=== PATIENT | male | born 1955 | race Caucasian/White ===

== ENCOUNTER 2022-03-13 14:28 | Outpatient (CLI) | payer MEDICARE, OTHER, SELFPAY ==
[2022-03-13 15:56] LABS: Basophils Percent Auto 0.6 % (0.2-1.2); Eosinophils Absolute Auto 0.1 K/mm3 (0-0.3); Eosinophils Percent Auto 1.8 % (0-4.4); Hematocrit 52.6 % (42.0-52.0); Hemoglobin 18.4 g/dL (14.0-18.0); Immature Granulocyte Absolute 0.02 K/mm3 (0.00-0.031); Immature Granulocyte Percent A 0.3 % (0-0.5); Lymphocytes Absolute Auto 1.48 K/mm3 (0.9-3.2); Lymphocytes Percent Auto 22.5 % (18.3-44.2); Mean Corpuscular Hemoglobin 32.6 pg (26-34); Mean Corpuscular Volume 93.1 fl (80-100); Mean Platelet Volume 9.9 fl (7.4-10.4); Monocytes Absolute Auto 0.5 K/mm3 (0.1-0.6); Monocytes Percent Auto 8.2 % (2.6-8.5); Neutrophils Absolute Auto 4.4 K/mm3 (1.3-6.7); Neutrophils Percent Auto 66.6 % (45.5-73.1); Platelet Count Result 220 k/mm3 (150-375); Red Blood Count 5.65 M/mm3 (4.6-6.20); Red Cell Distribution Width 13.1 % (11.5-14.5); White Blood Count 6.6 K/mm3 (4.5-10.0)
[2022-03-13 16:02] LABS: Alanine Aminotransferase 34 U/L (6-50); Albumin Level 4.6 g/dL (3.5-5.1); Alkaline Phosphatase 62 U/L (38-126); Anion Gap 7 mmol/L (8-16); Aspartate Amino Transferase 38 U/L (17-59); Blood Urea Nitrogen 26 mg/dL (9-20); Carbon Dioxide 30 mmol/L (22-30); Chloride 100 mmol/L (98-107); Estimated Glomerular Filt Rate 47; Glucose 93 mg/dL (65-110); Potassium 4.2 mmol/L (3.4-5.0); Sodium 137 mmol/L (137-145)
[2022-03-16 13:36] LABS: Erythropoietin (EPO) 15.8 mIU/mL (2.6-18.5)
[2022-03-19 15:37] LABS: CALR Exon 9 Mutation Not Detected (Not Detected); CSF3R Exon 14/17 Mutation Not Detected (Not Detected); Clinical Indication Not Given; JAK2 Exon 12 Mutation Not Detected (Not Detected); JAK2 V617F Mutation Not Detected (Not Detected); MPL Exon 10 Mutation Not Detected (Not Detected); Specimen Source Blood
== END 2022-03-13 14:29 | disposition home or self-care (01) ==
PROVIDERS: PCP Internal Medicine; Visit Provider Internal Medicine Hematology & Oncology
DX: D75.1 Secondary polycythemia (principal)
CPT/HCPCS: 36415; 80053; 81219; 81270; 81279; 81339; 81479; 82668; 85025

== ENCOUNTER 2022-12-10 14:43 | Outpatient (CLI) | payer MEDICARE, OTHER, SELFPAY ==
[2022-12-10 15:14] LABS: Basophils Percent Auto 0.6 % (0.2-1.2); Eosinophils Absolute Auto 0.1 K/mm3 (0-0.3); Eosinophils Percent Auto 1.9 % (0-4.4); Hematocrit 52.7 % (42.0-52.0); Hemoglobin 17.2 g/dL (14.0-18.0); Immature Granulocyte Absolute 0.01 K/mm3 (0.00-0.031); Immature Granulocyte Percent A 0.2 % (0-0.5); Lymphocytes Absolute Auto 1.04 K/mm3 (0.9-3.2); Lymphocytes Percent Auto 22.1 % (18.3-44.2); Mean Corpuscular HGB Conc 32.6 g/dl (32-36); Mean Corpuscular Hemoglobin 28.7 pg (26-34); Monocytes Absolute Auto 0.5 K/mm3 (0.1-0.6); Monocytes Percent Auto 11.3 % (2.6-8.5); Neutrophils Percent Auto 63.9 % (45.5-73.1); Platelet Count Result 157 k/mm3 (150-375); Red Blood Count 5.99 M/mm3 (4.6-6.20); Red Cell Distribution Width 14.6 % (11.5-14.5); White Blood Count 4.7 K/mm3 (4.5-10.0)
[2022-12-10 15:23] LABS: Alanine Aminotransferase 26 U/L (6-50); Albumin Level 4.3 g/dL (3.5-5.1); Alkaline Phosphatase 56 U/L (38-126); Anion Gap 8 mmol/L (8-16); Aspartate Amino Transferase 34 U/L (17-59); Bilirubin,Total 1.1 mg/dL (0.2-1.3); Blood Urea Nitrogen 17 mg/dL (9-20); Calcium 8.8 mg/dL (8.4-10.2); Carbon Dioxide 29 mmol/L (22-30); Chloride 101 mmol/L (98-107); Estimated Glomerular Filt Rate 60; Glucose 82 mg/dL (65-110); Potassium 4.2 mmol/L (3.4-5.0); Sodium 138 mmol/L (137-145)
[2022-12-10 16:35] LABS: Folic Acid > 20.0 ng/mL (2.76->20)
[2022-12-10 16:43] LABS: Free T4 Free Thyroxine 1.38 ng/mL (0.78-2.19)
[2022-12-13 13:13] LABS: Vitamin B6 23.1 ng/mL (2.1-21.7)
[2022-12-14 06:25] LABS: Vitamin B1 24 nmol/L (8-30)
== END 2022-12-10 14:44 | disposition home or self-care (01) ==
PROVIDERS: PCP Internal Medicine; Visit Provider Internal Medicine
DX: R45.86 Emotional lability (principal); Z79.899 Other long term (current) drug therapy; E55.9 Vitamin D deficiency, unspecified
CPT/HCPCS: 36415; 80053; 82306; 82607; 82746; 84207; 84252; 84425; 84439; 84443; 85025

== ENCOUNTER 2022-12-13 07:30 | Outpatient (CLI) | payer MEDICARE, OTHER, SELFPAY ==
--- NOTE | ~2022-12-13 | CT_ITS ---
EXAMINATION: CT brain wo/w con DATE: 12/13/2022 08:15 INDICATION: Emotional lability. TECHNIQUE: Computed tomography (CT) of the head was performed without and with 100 mL Omnipaque 350 i ntravenous contrast. The mA was adjusted according to patient size. Iterative reconstruction techniqu e was employed. The dose-length product was 1210.67 mGy-cm. COMPARISON: Head CT 07/23/2018 FINDINGS: There is no intracranial hemorrhage, acute infarction, or abnormal intracranial mass lesion . There are scattered areas of low attenuation in the cerebral white matter, which is within normal l imits for the patient's age. The ventricles are normal in size. There is mucosal thickening in the pa ranasal sinuses. The orbits are normal. The mastoid air cells are normal. IMPRESSION: 1. Normal aging brain. Reviewed, dictated and finalized at location A. IMPRESSION: 1. Normal aging brain.
[2022-12-13 08:06] LABS: Estimated Glomerular Filt Rate 43
== END 2022-12-13 07:31 | disposition home or self-care (01) ==
PROVIDERS: PCP Internal Medicine; Visit Provider Internal Medicine
DX: R45.86 Emotional lability (principal); F09 Unspecified mental disorder due to known physiological condition
CPT/HCPCS: 70470; Q9967

== ENCOUNTER 2023-08-19 11:19 | Outpatient (CLI) | payer MEDICARE, OTHER, SELFPAY ==
[2023-08-19 11:31] LABS: Hematocrit 45.3 % (42.0-52.0); Hemoglobin 16.1 g/dL (14.0-18.0); Mean Corpuscular HGB Conc 35.5 g/dl (32-36); Mean Corpuscular Hemoglobin 31.8 pg (26-34); Mean Corpuscular Volume 89.3 fl (80-100); Mean Platelet Volume 9.1 fl (7.4-10.4); Platelet Count Result 176 k/mm3 (150-375); Red Blood Count 5.07 M/mm3 (4.6-6.20); Red Cell Distribution Width 13.2 % (11.5-14.5)
[2023-08-19 11:37] LABS: Blood Urea Nitrogen 15 mg/dL (8-26); Carbon Dioxide 23 mmol/L (22-30); Chloride 101 mmol/L (98-109); Estimated Glomerular Filt Rate 55; Glucose 123 mg/dL (70-105); Ionized Calcium (POC) 1.15 mmol/L (1.11-1.31); Potassium 4.3 mmol/L (3.5-4.9); Sodium 134 mmol/L (138-146)
== END 2023-08-19 11:20 | disposition home or self-care (01) ==
LOC: ANHLAB 11:21
PROVIDERS: Visit Provider Internal Medicine Hematology & Oncology
DX: D75.1 Secondary polycythemia (principal)
CPT/HCPCS: 36415; 80047; 85027

== ENCOUNTER 2024-02-14 10:49 | Outpatient (CLI) | payer MEDICARE, OTHER, SELFPAY ==
[2024-02-14 11:07] LABS: Basophils Percent Auto 0.5 % (0.2-1.2); Eosinophils Absolute Auto 0.2 K/mm3 (0-0.3); Eosinophils Percent Auto 4.6 % (0-4.4); Hemoglobin 14.8 g/dL (14.0-18.0); Immature Granulocyte Absolute 0.01 K/mm3 (0.00-0.031); Immature Granulocyte Percent A 0.3 % (0-0.5); Lymphocytes Absolute Auto 1.13 K/mm3 (0.9-3.2); Lymphocytes Percent Auto 28.8 % (18.3-44.2); Mean Corpuscular HGB Conc 30.2 g/dl (32-36); Mean Corpuscular Hemoglobin 23.3 pg (26-34); Mean Corpuscular Volume 77.3 fl (80-100); Monocytes Absolute Auto 0.5 K/mm3 (0.1-0.6); Monocytes Percent Auto 13.2 % (2.6-8.5); Neutrophils Absolute Auto 2.1 K/mm3 (1.3-6.7); Neutrophils Percent Auto 52.6 % (45.5-73.1); Platelet Count Result 159 k/mm3 (150-375); Red Blood Count 6.34 M/mm3 (4.6-6.20); Red Cell Distribution Width 17.5 % (11.5-14.5); White Blood Count 3.9 K/mm3 (4.5-10.0)
[2024-02-14 11:14] LABS: Blood Urea Nitrogen 19 mg/dL (8-26); Carbon Dioxide 28 mmol/L (22-30); Chloride 101 mmol/L (98-109); Estimated Glomerular Filt Rate 50; Glucose 84 mg/dL (70-105); Ionized Calcium (POC) 1.19 mmol/L (1.11-1.31); Potassium 4.6 mmol/L (3.5-4.9); Sodium 137 mmol/L (138-146)
== END 2024-02-14 10:50 | disposition home or self-care (01) ==
LOC: ANHLAB 10:50
PROVIDERS: Visit Provider Internal Medicine Hematology & Oncology
DX: D75.1 Secondary polycythemia (principal)
CPT/HCPCS: 36415; 80047; 85025

== ENCOUNTER 2024-08-20 13:34 | Outpatient (CLI) | payer MEDICARE, OTHER, SELFPAY ==
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
--- OUTSIDE RECORDS SUMMARY | 2024-08-20 13:37 | XMS_ITS | Clinical Summary ---
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 Active metoprolol tartrate (LOPRESSOR) 50 mg tablet Take 50 mg by mouth 2 times daily. 2 Active omeprazole (PriLOSEC) 20 mg Capsule, Delayed Release(E.C.) Take 20 mg by mouth 1 time daily as needed for Nausea. 0 Active rosuvastatin (CRESTOR) 10 mg tablet Take 5 mg by mouth daily. 2 Active niacin (NIACOR) 250 mg tablet Take 1 Tablet by mouth. Active Multivitamin Capsule Take 1 Capsule by mouth daily. Active rivaroxaban (Xarelto) 20 mg Tablet Take 20 mg by mouth daily with supper. Active tadalafil (CIALIS) 2.5 mg tablet Take 5 mg by mouth daily. 4 Active testosterone enanthate 100 mg/0.5 mL Auto-Injector Inject 100 mg by subcutaneous injection every 7 days. Active doxylamine (UNISOM) 25 mg Tablet Take 25 mg by mouth nightly as needed for Insomnia. Active Active Problems No known active problems Family History Medical History Relation Name Comments No Known Problems Daughter Heart Disease Father Stomach Cancer Father No Known Problems Mother No Known Problems Son Relation Name Status Comments Brother 3 sisters Daughter Alive Father Mother Sister 4 sisters Son Alive Social History Tobacco Use Types Packs/Day Years Used Date Smoking Tobacco: Never Smokeless Tobacco: Never Tobacco Cessation:Counseling Given: Not Answered Alcohol Use Standard Drinks/Week Comments Yes 0 (1 standard drink = 0.6 oz pur e alcohol) Sex and Gender Information Value Date Recorded Sex Assigned at Not on file Legal Sex Male 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 Gender Identity Not on file Sexual Orientation Not on file Last Filed Vital Signs Vital Sign Reading Time Taken Comments Blood Pressure 124/80 02/14/2024 11:22 AM CONSTRUCTION SAFETY CONSULTANT Pulse 53 02/14/2024 11:22 AM CONSTRUCTION SAFETY CONSULTANT Temperature 36.7 C (98 F) 02/14/2024 11:22 AM CONSTRUCTION SAFETY CONSULTANT Respiratory Rate 16 02/14/2024 11:2 2 AM CONSTRUCTION SAFETY CONSULTANT Oxygen Saturation 97% 02/14/2024 11: 22 AM CONSTRUCTION SAFETY CONSULTANT Inhaled Oxygen Concentration - - Weight 102.6 kg (226 lb 3.2 oz) 024 11:22 AM CONSTRUCTION SAFETY CONSULTANT Height 185.4 cm (6' 1 ) 03/13/2022 1:32 PM CONSTRUCTION SAFETY CONSULTANT Body Mass Index 29.84 03/13/2022 1:32 PM CONSTRUCTION SAFETY CONSULTANT Plan of Treatment Upcoming Encounters Date Type Department Care Team (Late st Contact Info) Description 08/20/2024 2:00 PM CDT Office Visit [facility] - [place] [address] [facility] [address] [place] [address] Josh Fierro MD [address] [facility] [address] [place] [address] Health Maintenance Due Date Last Done Comments Pre-Diabetes and Diabetes Screening 1955 COLORECTAL SCREENING 2000 Colorectal Cancer Screening 2000 FIT-DNA Q 3 years 2000 FIT/FOBT Q 1 year 2000 Flex Sig/CT Colonography Q 5 years 2000 INFLUENZA VACCINE (#1) 2023 01/08/2023, 2016 RSV VACCINE (60+ or ) (1 - 1-dose 75+ series) 2030 DTAP/TDAP/TD VACCINES (2 - Td or Tdap) 04/03/2032 ZOSTER VACCINE Completed 09/21/2019, 03/02/2019 PNEUMOCOCCAL VACCINE 50+ YEARS Completed 04/18/2021 , 04/10/2020 Insurance MEDICARE PART A AND B [facility] OF [facility] MEDICARE PART A AND B [facility] OF [facility] [place] [address]
--- OUTSIDE RECORDS SUMMARY | 2024-08-20 13:37 | XMS_ITS | Clinical Summary ---
Author Organization [facility] [address] Address [address] [place] [address] Care Team Providers Care Gold Assayer Name Role Phone Marlen Eddy MD Primary Care Provider [phone] Allergies No known active allergies Medications omeprazole (PriLOSEC) 20 mg capsule Take 1 capsule (20 mg total) by mouth daily Active multivitamin capsule Take 1 capsule by mouth daily Active rosuvastatin (CRESTOR) 5 mg tablet Take 1 tablet (5 mg total) by mouth daily 3 Active Xarelto 20 mg tablet TAKE 1 TABLET BY MOUTH EVERY DAY WITH SUPPER TAKE WITH FOOD Active metoprolol tartrate (LOPRESSOR) 25 mg immediate release tablet Take 1 tablet (25 mg total) by mouth 2 (two) times a day Patient states take every 12 hours Active sildenafiL (VIAGRA) 100 mg tablet Take 1 tablet (100 mg total) by mouth daily as needed for erectile dysfunction Patient states he take 100 mg as needed Active testosterone cypionate (DEPO-TESTOTER ONE) 100 mg/mL injection Inject 1 mL (100 mg total) into the muscle as instructed once a week Active cyanocobalamin (Vitamin B-12) 1,000 mcg tablet Take 1 tablet (1,000 mcg total) by mouth daily Active doxylamine (UNISOM) 25 mg tablet Take 1 tablet (25 mg total) by mouth nightly as needed Active needle, disp, 18 G (Monoject Hypodermic Polypropyl) 18 gauge x 1 needle 1 (one) needle, disposable as directed weekly for 0 days 4 Active syringe with needle (TrackDuck Luer Lock Syr-needle) 3 mL 23 x 1 syringe 1 Syringe 4 Active tadalafiL (CIALIS) 5 mg tablet Take 1 tablet (5 mg total) by mouth as needed Active testosterone 20.25 mg/1.25 gram (1.62 %) gel in metered-dose pump 3 08/15/19 25 Discontin ued(Thera py completed ) niacin 250 mg tablet Take 1 tablet (250 mg total) by mouth 08/15/19 25 Discontin ued(Thera py completed ) sildenafiL (VIAGRA) 100 mg tablet Take 0.5 tablets (50 mg total) by mouth as needed 2 08/15/19 25 Discontin ued(Thera py completed ) metoprolol tartrate (LOPRESSOR) 50 mg immediate release tablet Take 1 tablet (50 mg total) by mouth 2 (two) times a day 08/15/19 25 Discontin ued(Thera py completed ) Active Problems Problem Noted Date Diagnosed Date Irritability and anger 08/14/2024 Memory loss or impairment 08/14/2024 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 No evidence of ischemic heart disease. Continue beta-mikey. Of note, he was concerned about bradycardia and wanted to reduce the dose of metoprolol. I have agreed to do so as long as he does not have more atrial or ventricular arrhythmias on his next device check. SSS (sick sinus syndrome) 04/30/2017 Assessment & Plan (07/01/2017 1:59 PM CDT): His pacemaker is functioning normally and he has not had any episodes of syncope. Overall he is feeling much better than before PPM placement. He did have a few episodes of dizziness, and I have asked him to note if this happens again. One may correspond to an episode of atrial fibrillation that occurred, so we will continue to monitor this. Presence of cardiac pacemaker 03/26/2017 Overview (09/09/2019): [employer] DDD Essentio L111 pacemaker implanted on 03/19/17 for SSS. [facility] - Latitude remote monitoring. 09/09/2019-patient transferred to [facility] Assessment & Plan (07/01/2017 2:02 PM CDT): Normal device function. Latitude in 3 months. Headache 12/22/2013 Overview (07/05/2016): Headache Syncope 12/22/2013 Overview (07/05/2016): Syncope Resolved Problems Problem Noted Date Diagnosed Date Resolved Date Paroxysmal atrial fibrillation 07/01/2017 07/08/2018 Overview (07/01/2017): Noted on device interrogation, three episodes <1 minute each. This is not clinically significant. Continue to monitor via device and consider treatment if burden is increased or symptoms are problematic. Currently [id number]=0. Continue beta- mikey. Status post placement of imp lantable loop recorder 03/04/2017 03/26/2017 Overview (03/04/2017): [employer] Reveal Loop Recorder Dx; Syncope. DOI 03/01/[address] Benavides. [facility]link remote home monitoring. Encounters Date Type Department Care Team Description 08/14/2024 1:00 PM CDT Office Visit [facility] [address] [facility] 6th [place] [address] [place] [address] Maureen Miranda MD PhD Memory loss or impairment (Primary Dx); Irritability and anger from Last 3 Months Immunizations Immunization Administration Dates Next Due Influenza, Quadrivalent, Spl it, Preservative Free, Intramuscular 03/20/2017 Surgical History Surgery Date Site/Laterality Comments INSERT / REPLACE / REMOVE PACEMAKER Medical History Medical History Date Comments Hx Other Medical GERD, migraines , vasectomy; Comments: [facility] 09/01/2013 - Hx Other Medical heart attack; C omments: [facility] 09/10/2013 - Hx Other Medical cardiac cath; C omments: [facility] 09/10/2013 - Hx Other Medical not claustropho bic; Comments: [facility] 10/12/2013 - Syncope Sick sinus syndrome (HCC) Family History Medical History Relation Name Comments Coronary artery disease Father Ángel nary artery disease; Heart disease Father Heart disease; Other Father Alzheimer's disease Mother Alzheime r's disease; Dementia Mother Relation Name Status Comments Father (Age 87) abdominal cancer Mother (Age 89) Social History Tobacco Use Types Packs/Day Years Used Date Smoking Tobacco: Never Smokeless Tobacco: Never Tobacco Cessation:Counseling Given: No Alcohol Use Standard Drinks/Week Comments Yes 2 (1 standard drink = 0.6 oz pur e alcohol) Sex and Gender Information Value Date Recorded Sex Assigned at Not on file 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 Gender Identity Not on file Sexual Orientation Not on file Obstetrics History Last Filed Vital Signs Vital Sign Reading Time Taken Comments Blood Pressure 144/93 08/14/2024 12:35 PM CDT Pulse 53 08/14/2024 12:35 PM CDT Temperature - - Respiratory Rate - - Oxygen Saturation 94% 12/12/2023 9:20 AM CDT Inhaled Oxygen Concentration - - Weight 103 kg (227 lb) 08/14/2024 12:35 PM CDT Height 185.4 cm (6' 1 ) 08/14/2024 12:35 PM CDT Body Mass Index 29.95 08/14/2024 12:35 PM CDT Plan of Treatment Health Maintenance Due Date Last Done Comments Colon Cancer Screening-Colonoscopy 1955 Depression Screening 1955 Fall Risk Assessment 1955 Hepatitis C Screening 1955 Prostate Cancer Screening-PSA 1955 Hepatitis B Screening 1973 Well Visit 65+ 2020 Covid-19 Vaccine (2 - 2023-2 5 season) 2023 11/27/2020 DTaP/Tdap/Td Vaccine (2 - Td or Tdap) 04/03/2032 04/03/2022, 07/14/2018 Zoster Vaccine Completed 09/21/2019, 03/02/2019 Pneumococcal vaccine 65+ Completed 04/18/2021, 04/01 Influenza Vaccine Completed 01/20/2024, , 02/01/2021, Additional history exists Medical Devices Implanted Type Area Airplane Electrician Device Identifier Shelf Expiration Date Model / Serial / Lot Pacemaker- Implanted: by Yoana Bradley MD (Quantity not on file) Pacemaker Chest [employer] SSS ESSENTIO [id number] / [id number] / Insurance MEDICARE [employer] [facility] MEDICARE 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
--- OUTSIDE RECORDS SUMMARY | 2024-08-20 13:37 | XMS_ITS | Referral Summary ---
Author Organization [facility] [address] Address [address] [place] [address] Care Team Providers Care Tile Molder Name Role Phone Marlen Eddy MD Primary Care Provider [phone] Encounters Date Type Department Care Team Description 08/14/2024 1:00 PM CDT Office Visit [facility] [address] [facility] 6th [place] [address] [place] [id number] Maureen Miranda MD PhD Memory loss or impairment (Primary Dx); Irritability and anger from Last 3 Months Allergies No known active allergies Medications omeprazole [...] 0 days 4 Active syringe with needle (Posto7 Luer Lock Syr-needle) 3 mL 23 x [...] Presence of cardiac pacemaker 03/26/2017 Overview (09/09/2019): [employer] DDD Essentio L111 pacemaker implanted on 03/19/17 for SSS. [facility] - Latitude remote monitoring. 09/09/2019-patient transferred to [facility] Assessment & Plan (07/01/2017 2:02 [...] is increased or symptoms are problematic. Currently [id number]=0. Continue beta- mikey. Status post placement of imp lantable loop recorder 03/04/2017 03/26/2017 Overview (03/04/2017): [employer] Reveal Loop Recorder Dx; Syncope. DOI 03/01/[address] Benavides. [facility] remote home monitoring. 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 Gender Identity Not on file Sexual Orientation [...] 08/14/2024 12:35 PM CDT Plan of Treatment Not on file Medical Devices Implanted Type Area High Reach Operator Device Identifier Shelf Expiration Date Model / Serial / Lot Pacemaker- Implanted: by Yoana Bradley MD (Quantity not on file) Pacemaker Chest [employer] SSS ESSENTIO [id number] / [id number] / Insurance [facility]ICARE [facility]ICARE [facility] Advance Directives For more information, please contact: [phone] Documents on File Type Date Recorded Patient Unarmed Security Officer Expl anation ADVANCE DIRECTIVE 03/19/2017 Advance Di rective Checklist Care Teams Tile Molder Relationship Specialty Start Date End Date Marlen Eddy MD [address] [place] [address] PCP - General Family Medicine 08/22/23
[2024-08-20 13:48] LABS: Basophils Percent Auto 0.4 % (0.2-1.2); Eosinophils Absolute Auto 0.1 K/mm3 (0-0.3); Eosinophils Percent Auto 2.4 % (0-4.4); Hematocrit 48.6 % (42.0-52.0); Hemoglobin 15.3 g/dL (14.0-18.0); Immature Granulocyte Absolute 0.02 K/mm3 (0.00-0.031); Immature Granulocyte Percent A 0.4 % (0-0.5); Lymphocytes Absolute Auto 1.02 K/mm3 (0.9-3.2); Lymphocytes Percent Auto 20.8 % (18.3-44.2); Mean Corpuscular HGB Conc 31.5 g/dl (32-36); Mean Corpuscular Hemoglobin 25.4 pg (26-34); Mean Corpuscular Volume 80.7 fl (80-100); Mean Platelet Volume 9.5 fl (7.4-10.4); Monocytes Absolute Auto 0.4 K/mm3 (0.1-0.6); Monocytes Percent Auto 8.8 % (2.6-8.5); Neutrophils Absolute Auto 3.3 K/mm3 (1.3-6.7); Neutrophils Percent Auto 67.2 % (45.5-73.1); Platelet Count Result 200 k/mm3 (150-375); Red Blood Count 6.02 M/mm3 (4.6-6.20); White Blood Count 4.9 K/mm3 (4.5-10.0)
[2024-08-20 13:51] LABS: Blood Urea Nitrogen 13 mg/dL (8-26); Carbon Dioxide 25 mmol/L (22-30); Chloride 100 mmol/L (98-109); Estimated Glomerular Filt Rate 46; Glucose 111 mg/dL (70-105); Ionized Calcium (POC) 1.18 mmol/L (1.11-1.31); Potassium 4.3 mmol/L (3.5-4.9); Sodium 138 mmol/L (138-146)
[2024-08-20 16:42] LABS: Alanine Aminotransferase 26 U/L (6-50); Albumin Level 4.1 g/dL (3.5-5.1); Alkaline Phosphatase 64 U/L (38-126); Anion Gap 7 mmol/L (4-12); Aspartate Amino Transferase 47 U/L (17-59); Bilirubin,Total 0.9 mg/dL (0.2-1.3); Blood Urea Nitrogen 14 mg/dL (9-20); Calcium 8.9 mg/dL (8.4-10.2); Carbon Dioxide 26 mmol/L (22-30); Chloride 103 mmol/L (98-107); Estimated Glomerular Filt Rate 51; Glucose 110 mg/dL (65-110); Potassium 4.4 mmol/L (3.4-5.0); Sodium 136 mmol/L (137-145)
== END 2024-08-20 13:35 | disposition home or self-care (01) ==
PROVIDERS: Visit Provider Internal Medicine Hematology & Oncology
DX: D75.1 Secondary polycythemia (principal)
CPT/HCPCS: 36415; 80047; 80053; 85025

== ENCOUNTER 2024-09-23 15:15 | Emergency (ER) | payer MEDICARE, OTHER, SELFPAY ==
--- NOTE | ~2024-09-23 | XR_ITS ---
EXAMINATION: XR hand LT min 3V DATE: 09/23/2024 16:01 INDICATION: Right hand pain and swelling post fall one month prior TECHNIQUE: Posteroanterior, oblique and lateral views of the right hand were obtained. COMPARISON: None. FINDINGS: Alignment is normal. No fracture. Mild polyarticular osteoarthritis at the distal interphalangeal philly nts. Soft tissues are unremarkable. IMPRESSION: 1. 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 No acute osseous abnormali ty. Reviewed, dictated and finalized at location A. IMPRESSION: 1. 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 No a cute osseous abnormality.
[2024-09-23 15:35] VITALS: BP 115/79; PULSE 60; RESP 16; TEMP 36.7; O2SAT 100
--- NOTE | 2024-09-23 16:40 | ED_ITS ---
HPI - Extremity Injury (Upper) General Chief Complaint: Extremity Injury, Upper Stated Complaint: Left Hand Injury Time Seen by Provider: 09/23/24 16:20 Source: patient and RN notes reviewed Mode of arrival: ambulatory Limitations: no limitations History of Present Illness HPI narrative: 69-year-old male presents Express Care complaining of left and injury x1 month. Proximal month ago patient was cleaning barnacles off a boat when he lost his footing and fell on the rocks and landed on his left hand. Denies hitting his head, loss of consciousness, neck pain, back pain, any other injuries. Since then patient persistently having pain near the MCP joints of his hand and swelling. Patient said the swelling has significantly improved over the last month and is no longer bruised. Patient denies any significant past medical history. Patient has been doing Tylenol periodically without relief. Patient denies any numbness or tingling. Patient cannot take NSAIDs because he is on a blood thinner for atrial fibrillation history. Related Data Home Medications ?Medication ?Instructions ?Recorded ?Confirmed ?Last Taken ?Type multivitamin 1 tablet PO DAILY 03/17/19 02/12/23 Unknown History mecobalamin (vitamin B12) 1,000 1,000 mcg sublingual DAILY 08/17/19 02/12/23 Unknown History mcg disintegrating tablet,sublingual niacin 500 mg tablet,extended 500 mg PO QAM 08/17/19 02/12/23 Unknown History release omega 9-grv-paz-fish oil 1,200 mg See Rx Instructions PO .COMPLEX 03/29/20 02/12/23 Unknown History (144 mg-216 mg) capsule (Fish Oil) rivaroxaban 20 mg tablet (Xarelto) 20 mg PO DAILY 11/06/22 02/12/23 Unknown History testosterone cypionate 200 mg/mL mg 09/23/24 Unknown History intramuscular oil Allergies Allergy/AdvReac Type Severity Reaction Status Date / Time No Known Allergies Allergy Verified 09/23/24 15:35 Review of Systems Review of Systems: CONSTITUTIONAL: Denies fever, chills, or sweats. EYES: Denies visual changes, redness, or discharge. ENT: Denies rhinorrhea, congestion, sore throat, or otalgia. CARDIOVASCULAR: Denies chest pain, palpitations, or edema. RESPIRATORY: Denies cough or dyspnea. GASTROINTESTINAL: Denies abdominal pain, nausea, vomiting, or diarrhea. GENITOURINARY: Denies dysuria or hematuria. SKIN: Denies rash, wound, or itching. MUSCULOSKELETAL: Denies back pain, joint pain, or myalgia. Positive for left hand injury and swelling NEUROLOGIC: Denies headache, numbness, or weakness. PSYCHIATRIC: Denies anxiety or depression. All other systems reviewed are negative, except as documented in HPI. [facility] Past Medical History Medical History Follow up Cognitive changes A-fib Mood changes First detected episode of atrial fibrillation Actinic keratosis Polycythemia Hearing loss Light headedness Vitamin D deficiency Colon cancer screening Encounter for Medicare annual wellness exam Prostate cancer screening Personal history of COVID-19 Erectile dysfunction Encounter for preventive health examination Perforated left tympanic membrane on examination Encounter for special screening examination for neoplasm of prostate Hypogonadism in male Other specified abnormal findings of blood chemistry Rhinitis Elevated creatine kinase Cardiac pacemaker Neutropenia BMI 32.0-32.9,adult 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 therapy Encounter for routine adult health examination without abnormal findings Hyperlipidemia Testosterone deficiency Cognitive dysfunction Family History Family History Father Family history of malignant neoplasm Mother Family history of Alzheimer's disease Social History Social History Smoking status: Never smoker Second hand tobacco smoke exposure: No Alcohol intake: never Lack of Transportation: No Lack of Food: Never True Current Housing: I Have Housing Concerned About Future Housing: No Difficulty Paying Gas/Electric Bills: No Difficulty Paying for Meds: No Currently Unemployed: No Education: Bachelor's Degree Difficulty w/ Childcare or Family Care: No Living arrangements: with family Occupation/Education: occupation Gender identity (if verbalized by the patient): Male Spiritual care concerns: No Comments At the time of my signature, I reviewed and agree with the nursing past medical, surgical, social, and family history. There is no relevant family history pertinent to the patient complaint. Exam Narrative: GENERAL: This is a well-nourished, well-developed adult, in no apparent distress. They are non ill-appearing, nontoxic appearing. HEAD: normocephalic, atraumatic. EYES: Sclera clear/white. Vision is grossly intact. Conjunctiva normal. Extraocular movement intact. EARS: External ears normal Hearing grossly intact. NOSE: External nose normal THROAT: Mucous membranes moist NECK: Neck supple CARDIOVASCULAR: Regular rate and rhythm RESPIRATORY: Respiratory rate normal, respiratory effort nonlabored, no respiratory distress NEURO: awake, alert, and oriented to person, place and time. There were no obvious focal neurologic abnormalities. EXTREMITIES: Left hand: No obvious deformity, injury, bruising, redness. There was swelling throughout the patient's left hand compared to right hand. Normal range of motion of hand. Tenderness to palpation to dorsal surface of the 4th and 5th MCP joints. Capillary refill less than 3 seconds. Left radial Pulse 2 +palpable. Normal sensation. Neurovascular status intact distal injury. Patient can make a fist, stop sign, okay sign, and thumbs-up sign. Director Investor Relations Strength 5/5 and equal bilaterally. Radial and ulnar nerve distribution intact. Patient is able to wiggle his fingers. BACK: Nontender without deformity. Course Course Emergency Course: Portions of this record may have been created with voice recognition software Level of Care: Express Care Visit Vital Signs Vital signs: Vital Signs Temperature 98.1 F 09/23/24 15:35 Pulse Rate 60 09/23/24 15:35 Respiratory Rate 16 09/23/24 15:35 Blood Pressure 115/79 09/23/24 15:35 Pulse Oximetry 100 09/23/24 15:35 Temperature 98.1 F 09/23/24 15:35 Pulse Rate 60 09/23/24 15:35 Respiratory Rate 16 09/23/24 15:35 Blood Pressure 115/79 09/23/24 15:35 Pulse Oximetry 100 09/23/24 15:35 Reviewed MDM - Extremity Injury (Upper) [facility] Narrative Medical decision making narrative: X-ray negative for any acute fractures or findings. Arthritis present to the DIP joints. Patient given Miah wrap for compression and swelling. Advised follow-up with ortho or hand specialist if pain persists. Discussed physical exam findings. Advised supportive measures and signs/symptoms to go to the ER. Pt is appropriate for outpt treatment and f/u. Differential Diagnosis Differential diagnosis: Likely finger sprain, fracture of hand and other (Hand sprain, finger fracture) Imaging Data Radiologist's impression: ITS Impressions Hand X-Ray 09/23/24 16:08 IMPRESSION: 1. 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 No acute osseous abnormality. Critical Care Time Critical Care Time Critical Care Time: No Discharge Plan Discharge Clinical Impression: Arthritis Injury of hand, left Qualifiers: Encounter type: initial encounter Qualified Code(s): S69.92XA - Unspecified injury of left wrist, hand and finger(s), initial encounter Patient Disposition: Home Condition: Stable Instructions: Osteoarthritis (ED), Arthralgia (ED) Additional Instructions: Your x-ray is negative for any fracture or acute findings. It does show arthritis in your fingers. Rest and elevate the hand Apply ice 15-20 minute intervals several times a day Keep it wrapped with MIAH Tylenol 1000mg every 8 hours as needed for pain Follow up with your primary care provider, orthopedist, or hand specialist in 1 week if pain continues to persist. Please return to the ER for any concerns, numbness or tingling, or weakness. Patient Language: Cameroonian Prescriptions: No Action testosterone cypionate 200 mg/mL oil multivitamin Tablet 1 tablet PO DAILY niacin 500 mg tablet extended release 500 mg PO QAM mecobalamin (vitamin B12) 1,000 mcg tablet,disintegrating 1,000 mcg SUBLINGUAL DAILY Rx Instructions: place tablet under tongue and allow to dissolve for at least30 secs before swallowing omega 2-ujp-raj-fish oil [Fish Oil] 1,200 (144-216) mg capsule See Rx Instructions PO .COMPLEX Rx Instructions: Take 3 capsules daily Xarelto 20 mg tablet 20 mg PO DAILY Rx Instructions: must administer with evening meal rosuvastatin 5 mg tablet 5 mg PO DAILY Qty: 90 1RF omeprazole 20 mg capsule,delayed release(DR/EC) See Rx Instructions .ROUTE .COMPLEX PRN (Reason: GERD) Qty: 90 1RF Dose Instruction: TAKE 1 CAPSULE DAILY Rx Instructions: TAKE 1 CAPSULE DAILY PRN; sildenafil 100 mg tablet 100 mg PO DAILY PRN (Reason: sexual activity) Qty: 180 0RF Rx Instructions: administer 30 minutes to 4 hours before activity metoprolol tartrate 50 mg tablet See Rx Instructions .ROUTE .COMPLEX Qty: 180 1RF Dose Instruction: TAKE 1 TABLET EVERY 12 HOURS Rx Instructions: TAKE 1 TABLET EVERY 12 HOURS testosterone [AndroGel] 20.25 mg/1.25 gram (1.62 %) gel in metered-dose pump 4 pump topical DAILY Qty: 450 1RF Rx Instructions: apply 2 pump amount over max area of EACH upper arm and shoulder. Needs 6 bottles for 4 pumps daily @ 60 pumps per bottle, Follow-up/Referrals: Surjit,Marlen bruce [Other] Johnny Og MD [Physician] - All Hunt MD [Physician] - Time of Disposition: 16:42
== END 2024-09-23 16:45 | disposition home or self-care (01) ==
DX: S69.92XA Unspecified injury of left wrist, hand and finger(s), initial encounter (principal); M19.042 Primary osteoarthritis, left hand; I48.91 Unspecified atrial fibrillation; V94.0XXA Hitting object or bottom of body of water due to fall from watercraft, initial encounter
CPT/HCPCS: 73130; 99213; G0463

== ENCOUNTER 2025-02-11 12:21 | Inpatient (IN) | payer MEDICARE, OTHER, SELFPAY ==
[2025-02-11] VITALS (26 sets, daily range): BP systolic 103–142; BP diastolic 69–94; PULSE 60–87; RESP 15–20; TEMP 36.4; O2SAT 92–100; BMI 25.2
--- NOTE | ~2025-02-11 | XR_ITS ---
EXAM/PROCEDURE: XR chest 2V HISTORY: Chest pain COMPARISON: 2017 TECHNIQUE: Two view(s) of the chest. FINDINGS: LUNGS: Clear of acute processes. PLEURAL SPACES: Clear. No evidence of fluid or pneumothorax. HEART/ MEDIASTINUM: Normal in appearance. SOFT TISSUES: No significant findings. BONES: No acute osseous abnormality. Pacing device enters from the left has leads in the right atrium and right ventricle. IMPRESSION: No acute findings. Reviewed, dictated and finalized at location A. CAL SERVICES COORDINATOR IMPRESSION: No acute findings.
--- NOTE | 2025-02-11 12:28 | ECG_ITS ---
Test Date: 2025-02-11 12:33:06 Measurements Intervals Burke Rate: 69 P: 46 AK: 227 QRS: 22 QRSD: 84 T: -7 QT: 338 QTc: 363 Interpretive Statements SINUS RHYTHM WITH SINUS ARRHYTHMIA WITH FIRST DEGREE AV BLOCK No previous ECG available for comparison Electronically Signed On 02-11-2025 12:35:45 WHARF TENDER by Guillermo Benavides M.D.
[2025-02-11 12:49] LABS: Hematocrit 50.0 % (42.0-52.0); Hemoglobin 16.1 g/dL (14.0-18.0); Immature Granulocyte Percent A 0.3 % (0-0.5); Lymphocytes Absolute Auto 0.48 K/mm3 (0.9-3.2); Mean Corpuscular HGB Conc 32.2 g/dl (32-36); Mean Corpuscular Hemoglobin 26.6 pg (26-34); Mean Corpuscular Volume 82.5 fl (80-100); Nucleated Red Blood Cells Absolute Auto 0.000 K/mm3 (0.0-0.012); Nucleated Red Blood Cells Perc 0.0 % (0.0-0.2); Platelet Count Result 148 k/mm3 (150-375); Red Blood Count 6.06 M/mm3 (4.6-6.20); White Blood Count 7.0 K/mm3 (4.5-10.0)
--- OUTSIDE RECORDS SUMMARY | 2025-02-11 13:01 | XMS_ITS | Encounter Summary ---
Author Organization [facility] Address [address] [place] [address] Care Team Providers Care Digital Asset Specialist Name Role Phone Win Jeong M.D. Unavailable [phone] Marlen Eddy M.D. Primary Care Provider + Melchor Ramirez M.D. Unavailable Unavailabl e Encounter Details Date Type Department Care Team (Late st Contact Info) Description 12/23/2024 Results Follow-Up Primary Care at [facility] [address] [place] [address] Marlen Eddy M.D. [facility] , [address] [place] [address] [facility] RESULT Social History Tobacco Use Types Packs/Day Years Used Date Smoking Tobacco: Never Smokeless Tobacco: Never Comments:Rare cigar in past Alcohol Use Standard Drinks/Week Comments Yes 10 (1 standard drink = 0.6 oz pu re alcohol) B1300 Health Literacy Answer Date Recor ded How often do you need to hav e someone help you when you read instructions, pamphlets, or other written material from your doctor or pharmacy? Never 02/29/[address] [facility] Utilities Answer Date Recorded In the past 12 months has e electric, gas, oil, or water company threatened to shut off services in your home? No 02/29/2024 Social Connection and Isolation Panel Answer Date Recorded In a typical week, how many times do you talk on the phone with family, friends, or neighbors? Three times a week 02/29/20 24 How often do you get togethe r with friends or relatives? Twice a week 02/29/2024 How often do you attend chur or restoration services? 1 to 4 times per year 02/29/2024 Do you belong to any clubs o r organizations such as taoism groups, unions, fraternal or athletic groups, or [...] Recorded Patient Health Questionnaire-2 Score 0 03/04/2024 [facility] - Occupational Stress [...] any time in the past 12 m [facility], were you homeless or living in a correction (including now)? No 02/29/2024 Sex and Gender Information Value Date Recorded Sex Assigned at Not on file Legal Sex Male 8:09 AM EST Gender Identity Not on file Sexual Orientation Not on file documented as of this encounter Functional Status * Is the patient deaf or have serious difficulty hearing? Answer Date of Assessment Author Yes 03/04/2024 1:14 PM Maureen Salmon, R.N. * Is the patient blind or have serious difficulty seeing even when wearing glasses? Answer Date of Assessment Author No 03/04/2024 1:14 PM Maureen Salmon, R.N. * Does the patient have serious difficulty concentrating, remembering, or making decisions? Answer Date of Assessment Author No 03/04/2024 1:14 PM Maureen Salmon, R.N. * Does the patient have serious difficulty walking or climbing stairs? Answer Date of Assessment Author No 03/04/2024 1:14 PM Maureen Salmon, R.N. * Does the patient have difficulty dressing or bathing? Answer Date of Assessment Author No 03/04/2024 1:14 PM Maureen Salmon, R.N. documented as of this encounter Mental Status * Does the patient have difficulty doing errands alone? Answer Entry Date Author No 03/04/2024 1:14 PM Maureen Salmon, RPatriciaN. documented in this encounter Plan of Treatment Upcoming Encounters Date Type Department Care Team (Late st Contact Info) Description 03/09/2025 2:00 PM EST Office Visit [facility] [address] [place] [address] Win Jeong M.D. [facility] [employer], [address] [place], [place] [id number] 03/17/2025 10:30 AM EST Office Visit Primary Care at [address] [place] [address] 03/17/2025 11:00 AM EST Office Visit Primary Care at [address] [place] [address] Marlen Eddy M.D. [address] [place], [place] [address]mur[address], [address] [place] [address] 07/14/2025 11:30 AM EDT Office Visit Urology at [address] [place] [id number] Toney Palencia M.D. [address] [place] [address] documented as of this encounter Visit Diagnoses Not on filedocumented in this encounter Care Teams Digital Asset Specialist Relationship Specialty Start Date End Date Marlen Eddy M.D. [address] [place], [place] [address]mur[address], [address] [place] [address] PCP - General Family Medicine 07/15/23 Win Jeong M.D. [facility] [employer], [address] [place], [place] [id number] [facility] 04/17/23 Melchor Ramirez M.D. [address] [place], [place] [address], [address] [place] [address] Urologic Surgery 03/04/24 Dr Sandoval Dermatology 03/04/24 documented as of this encounter
--- OUTSIDE RECORDS SUMMARY | 2025-02-11 13:01 | XMS_ITS | Encounter Summary ---
Author Organization [facility] Address [facility] [place] [address] Care Team Providers Care Ingot Caster Name Role Phone Silverio Hines MD Primary Care Provider [phone] None, Provider Primary Care Provider Marlen Farmer MD Primary Care Provider Kassy vailable Encounter Details Date Type Department Care Team (Late Contact Info) Description 03/11/2023 Xetawave Message Enc [facility] [address] [place], [place] [id number] [place], [facility] Provider Pacemaker battery Social History Tobacco Use Types Packs/Day Years Used Date Smoking Tobacco: Some Days Cigars Smokeless Tobacco: Never Alcohol Use Standard Drinks/Week Comments Yes 0 (1 standard drink = 0.6 oz pure alcohol) light beer, white wine 5-7 weekly Sex and Gender Information Value Date Recorded Sex Assigned at Not on file Legal Sex Male 11:06 AM CDT Gender Identity Not on file Sexual Orientation Not on file documented as of this encounter Plan of Treatment Upcoming Encounters Date Type Department Care Team (Late Contact Info) Description 04/05/2025 11:40 AM SOFTWARE QUALITY MANAGER Allied Health/Nurse Visit [facility] [address] [place], [place] [phone] Stiven Ashley MD [facility]. [facility] [address] [place] [address] 08/17/2025 10:45 AM CDT Office Visit [facility] [address] [place] [address] Whit Ballard PA [address] [facility] [place] [address] documented as of this encounter Visit Diagnoses Not on filedocumented in this encounter Care Teams Ingot Caster Relationship Specialty Start Date End Date Silverio Hines MD [address] [phone] PCP - General INTERNAL MEDICINE 08/21/19 10/17/23 None, ProviderMD PCP - General UNKNOWN PHYSICIAN SPECIALTY 10/31/23 08/19/24 Marlen Eddy MD PCP - General 08/20/24 [place] [address] [facility] [address] [place] [id number] Physician INDUSTRIAL SEAMSTRESS 10/18/23 documented as of this encounter
--- OUTSIDE RECORDS SUMMARY | 2025-02-11 13:01 | XMS_ITS | Clinical Summary ---
Author [facility] Address [address] [place] [address] Care Team Providers Care Binding Nicker Name Role Phone Unavailable Primary Care Provider Unavailabl e Allergies No known active allergies Medications cyanocobalamin 1,000 mcg Tablet Take 1,000 mcg by mouth daily. Active metoprolol tartrate (LOPRESSOR) 50 mg tablet Take 25 mg by mouth 2 times daily. 2 [...] Active Active Problems No known active problems Encounters Date Type Department Care Team Description 01/20/2025 External Device Data [facility]STRACTION Provider, Abstract 12/08/2024 External Device Data [facility]STRACTION Provider, Abstract from Last 3 Months Family History Medical History Relation Name Comments [...] on file Legal Sex Male 12:38 PM SAFETY ATTENDANT Gender Identity Not on file Sexual Orientation Not on file Last Filed Vital Signs Vital Sign Reading Time Taken Comments Blood Pressure 127/75 08/20/2024 1:51 PM CDT Pulse 61 08/20/2024 1:51 PM CDT Temperature 36.3 C (97.4 F) 08/20/2024 1:51 PM CDT Respiratory Rate 15 08/20/2024 1:51 PM CDT Oxygen Saturation 94% 08/20/2024 1:51 PM CDT Inhaled Oxygen Concentration - - Weight 101.1 kg (222 lb 12.8 oz) 08/20/2024 1:51 PM CDT Height 185.4 cm (6' 1) 03/13/2022 1:32 PM SAFETY ATTENDANT Body Mass Index 29.39 03/13/2022 1:32 PM SAFETY ATTENDANT Plan of Treatment Upcoming Encounters Date Type Department Care Team (Late st Contact Info) Description 08/17/2025 1:15 PM CDT Office Visit [facility] Oncology and Hematology [facility] [address] [facility] [address] [place] [address] Josh Fierro MD [address] [facility] [facility] [address] [place] [address] Health Maintenance Due Date Last Done Comments Pre-Diabetes and Diabetes Screening 1955 COLORECTAL SCREENING 2000 Colorectal Cancer Screening 2000 FIT-DNA Q 3 years 2000 FIT/FOBT Q 1 year 2000 Flex Sig/CT Colonography Q 5 years 2000 INFLUENZA VACCINE (#1) 2024 4, 01/08/2023, 03/20/2017 RSV VACCINE (60+ or ) (1 - 1-dose 75+ series) 2030 DTAP/TDAP/TD VACCINES (2 - T d or Tdap) 04/03/2032 04/03/2022 ZOSTER VACCINE Completed 09/21/2019, 03/02/2019 PNEUMOCOCCAL VACCINE 50+ YEARS Completed 04/18/2021 , 04/10/2020 Insurance MEDICARE PART A AND B [employer] [facility] MEDICARE PART A AND B [employer] [facility]
--- OUTSIDE RECORDS SUMMARY | 2025-02-11 13:02 | XMS_ITS | Clinical Summary ---
Author Organization [facility] Address [address] [place] [address] Care Team Providers Care Librarian Name Role Phone Marlen Eddy MD Primary Care Provider Kassy vailable Allergies No known active allergies Medications Multiple Vitamin (DAILY VITAMIN OR) Take 1 tablet by mouth daily. Active niacin 250 MG tablet Take 1 tablet (250 mg total) by mouth nightly at bedtime. Active vitamin B-12 (CYANOCOBALAMIN ) 1000 mcg tablet Take 1 tablet (1,000 mcg total) by mouth daily. Active rosuvastatin (CRESTOR) 5 MG tablet Take 1 tablet (5 mg total) by mouth nightly at bedtime. 09/12/2022 Active Doxylamine Succinate, Sleep, (SLEEP AID OR) Take by mouth nightly. Active testosterone cypionate (DEPO TESTOSTERONE) 100 MG/ML injection Inject 1 mL (100 mg total) into the muscle once a week. 09/18/2023 Active sildenafil (REVATIO) 20 MG tablet Take 2.5 tablets (50 mg total) by mouth as needed. Active omeprazole (PRILOSEC) 20 MG capsule Take 1 capsule (20 mg total) by mouth daily. 11/15/2023 Active metoprolol tartrate (LOPRESSOR) 25 MG tablet Take 1 tablet (25 mg total) by mouth 2 (two) times daily. Active tadalafil (CIALIS) 5 MG tablet Take 1 tablet (5 mg total) by mouth. Active rivaroxaban (XARELTO) 20 MG Tab tablet Take 1 tablet (20 mg total) by mouth daily with supper. Take with food 90 tablet 01/07/2025 Active Active Problems Problem Noted Date Diagnosed Date Mixed hyperlipidemia 04/17/2023 Overview (08/15/2023): Last Assessment & Plan: -Labs ordered today -Controlled. Continue current management. Counseled to adhere to low-fat diet with lean proteins, and lots of vegetables and fruits. Continue or increase current exercise. Drink lots of water. -Patient does not need medication refills today Paroxysmal atrial fibrillation 04/17/2023 Overview (08/15/2023): Last Assessment & Plan: Continue care with specialist. 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 No evidence of ischemic heart disease. Continue beta-mikey. Of note, he was concerned about bradycardia and wanted to reduce the dose of metoprolol. I have agreed to do so as long as he does not have more atrial or ventricular arrhythmias on his next device check. SSS (sick sinus syndrome) 04/30/2017 Overview (09/07/2019): Last Assessment & Plan: His pacemaker is functioning normally and he [...] this. Presence of cardiac pacemaker 03/26/2017 Overview (09/07/2019): [employer] DDD Essentio [id number] pacemaker implanted on 03/19/17 for SSS. [facility] remote monitoring. Last Assessment & Plan: Normal device function. Latitude in 3 months. Syncope 12/22/2013 Overview (09/07/2019): Syncope Headache 12/22/2013 Overview (09/07/2019): Headache Encounters Date Type Department Care Team Description 01/18/2025 MyChart Message Enc [facility] [address] [place] [address] Stiven Ashley MD Xarelto/Eliquis 01/11/2025 Telephone [facility], [place] [address] [place] [address] Stiven Ashley MD Information 01/07/2025 Telephone [facility], [address] [place] [address] Stiven Ashley MD Medication (xarelto) 01/04/2025 11:35 AM CDT Allied Health/Nurse Visit [facility], [place] [address] [place], [place] [phone] Stiven Ashley MD Remote Device Check 01/04/2025 Telephone [facility], [place] [address] [place], [place] [phone] Catrina Ba RN Question 12/17/2024 Telephone [facility], [address] [phone] Whit Ballard PA Medication (ELIQUIS) 12/16/2024 Telephone [facility], [address], [place] [phone] Stiven Ashley MD Medication (XARELTO VS ELIQUIS) from Last 3 Months Immunizations Immunization Administration Dates Next Due Influenza Adult (Generic) 03/20/2017 Shingrix 09/21/2019,03/02/2019 Family History Medical History Relation Comments Stent Cardiac Father Relation Status Comments Father (Age 88) Mother (Age 89) Social History Tobacco Use Types Packs/Day Years Used Date Smoking Tobacco: Some Days Cigars Smokeless Tobacco: Never Tobacco Cessation:Ready to Q uit: Not Asked; Counseling Given: Not Answered Alcohol Use Standard Drinks/Week [...] Sign Reading Time Taken Comments Blood Pressure 110/66 08/20/2024 8:50 AM CDT Pulse 63 08/20/2024 8:50 AM CDT Temperature 36.7 C (98 F) 10/17/2023 7:00 PM CDT Respiratory Rate 20 10/17/2023 7:55 PM CDT Oxygen Saturation 93% 08/20/2024 8:50 AM CDT Inhaled Oxygen Concentration - - Weight 101.2 kg (223 lb) 08/20/2024 8:50 AM CDT Height 185.4 cm (6' 1) 08/20/2024 8:50 AM CDT Body Mass Index 29.42 08/20/2024 8:50 AM CDT Plan of Treatment Upcoming Encounters Date Type Department Care Team (Late st Contact Info) Description 04/05/2025 11:40 AM PITCHING COACH Allied Health/Nurse Visit [facility], [address] [address] Stiven Ashley MD [facility]. [address] [place], [place] [address] 08/17/2025 10:45 AM CDT Office Visit [facility] [address] [place], [place] [address] Whit Ballard PA 3 [facility] [address] [place], [place] [address] Health Maintenance Due Date Last Done Comments Colorectal Cancer Screening Colonoscopy (10 Years) 1955 Hepatitis C 1973 Annual Medicare Wellness Visit 2020 COVID-19 Vaccine ( season) 2024 11/27/2020 Influenza Adult (#1) 2024 01/20/2024, 01/16/2020, 01/26/2019, Additional history exists DTaP, Tdap and Td Vaccines (2 - Td or Tdap) 04/03/2032 04/03/2022, 07/14/2018 Zoster Vaccines Completed 09/21/2019, 03/02/2019 Pneumococcal Vaccine: 50+ Years Completed 04/18/2021, 04/10/2020 RSV Immunization or 60+ Years Completed 02/18/2023 Hepatitis A Vaccines Aged Out No long er eligible based on patient's age to complete this topic Meningococcal B Vaccine Aged Out No l onger eligible based on patient's age to complete this topic Meningococcal Vaccine Aged Out No juhi stella eligible based on patient's age to complete this topic RSV Immunizations Under 20 Months Aged Out No longer eligible based on patient's age to complete this topic Medical Devices Implanted Type Area Master Barber Device Identifier Shelf Expiration Date Model / Serial / Lot Atrial Lead Implant-03/19 Implanted: (Quantity not on file) Lead Implant [employer] [id number] / [id number] / Rv Lead Implant-03/19 Implanted: (Quantity not on file) Lead Implant [employer] [id number] / [id number] / Pacemaker [employer] Accolade Mri Dr-03/20/2023 Implanted:Qty : 1 on 03/20/2023 by Stiven Ashley MD Pacemaker Left: Chest [employer] [id number] 01/22/2025 [id number] / [id number] / Explanted Type Area Master Barber Device Identifier Shelf Expiration Date Model / Serial / Lot [id number] /19/2017 Implanted:03/19 (Quantity not on file) Explanted:Qty: 1 on 03/20/2023 by Stiven Ashley MD Pacemaker Description:2020 Battery Adv isory Insurance MEDICARE [facility] Advance Directives * Full Code (Latest Code Status on File) Date Activated Date Inactivated Comments 10/07/2023 11:46 AM 10/07/2023 5:25 PM * Full Code Date Activated Date Inactivated Comments 03/20/2023 4:58 PM 03/20/2023 7:36 PM Care Teams Librarian Relationship Specialty Start Date End Date Marlen Eddy MD PCP - General 08/20/24 Marlen Eddy MD [facility] [address] [place] [id number] Physician CHARM FILTER OPERATOR HELPER 10/18/23
--- OUTSIDE RECORDS SUMMARY | 2025-02-11 13:02 | XMS_ITS | Encounter Summary ---
Author Organization [facility] Address Count includes the [facility] [place] [address] Care Team Providers Care Filler Shredding Machine Loader Name Role Phone Silverio Hines MD Primary Care Provider [phone] None, Provider Primary Care Provider Marlen Farmer MD Primary Care Provider Kassy vailable Encounter Details Date Type Department Care Team (Late Contact Info) Description 09/29/2021 Polyvore Message Enc [place] [facility], [address] [phone] [place] Provider Disconnected Latitude Monitor Social History Tobacco Use Types Packs/Day Years [...] on file Sexual Orientation Not on file COVID-19 Exposure Response Date Recorded In the last 10 days, have yo u been in contact with someone who was confirmed or suspected to have Coronavirus/COVID-19? No / Unsure 09/11/2021 11:16 AM CDT documented as of this encounter Plan of Treatment Upcoming Encounters Date Type Department Care Team (Late Contact Info) Description 04/05/2025 11:40 AM AUTOMOTIVE AIRCONDITIONING MECHANIC Allied Health/Nurse Visit [place] [facility], [facility] [address] [place], [place] [phone] [facility] [address] [place] [address] 08/17/2025 10:45 AM CDT Office Visit [facility] THREE [facility], [address] [place] [address] Whit Ballard PA 3 [facility] [address] [place] [address] documented as of this encounter Visit Diagnoses Not on filedocumented in this encounter Care Teams Filler Shredding Machine Loader Relationship Specialty Start Date End Date Silverio Hines MD [address] [place] [phone] PCP - General INTERNAL MEDICINE 08/21/19 10/17/23 None, MD Anam PCP - General UNKNOWN PHYSICIAN SPECIALTY 10/31/23 08/19/24 Marlen Eddy MD PCP - General 08/20/24 [place] [address] [id number] Physician SPECIAL SERVICES DIRECTOR 10/18/23 documented as of this encounter
--- OUTSIDE RECORDS SUMMARY | 2025-02-11 13:02 | XMS_ITS | Encounter Summary ---
Author Organization [facility] Address [facility] [place] [address] Care Team Providers Care Traffic Engineer Name Role Phone Silverio Hines MD Primary Care Provider [phone] None, Provider Primary Care Provider Marlen Farmer MD Primary Care Provider Kassy vailable Encounter Details Date Type Department Care Team (Late Contact Info) Description 04/18/2023 MyChart Message Enc [place] [facility], [address] [place], [place] [phone] Stiven Ashley MD [facility]. [facility] [address] [place] [address] New tour manager Social History Tobacco Use Types Packs/Day Years [...] (Late Contact Info) Description 04/05/2025 11:40 AM GAS GOLF CART REPAIRER Allied Health/Nurse Visit [facility], [address] [place], [place] [phone] Stiven Ashley MD [facility]. [address] [place] [address] 08/17/2025 10:45 AM CDT Office Visit [facility], [address] [place] [address] Whit Ballard PA 3 [facility] [address] [place] [address] documented as of this encounter Visit Diagnoses Not on filedocumented in this encounter Care Teams Traffic Engineer Relationship Specialty Start Date End Date Silverio Hines MD [address] [phone] PCP - General INTERNAL MEDICINE 08/21/19 10/17/23 None, MD Anam PCP - General UNKNOWN PHYSICIAN SPECIALTY 10/31/23 08/19/24 Marlen Eddy MD PCP - General 08/20/24 Marlen Eddy MD [facility] [address] [place] [address] Physician ANALYTICAL STRATEGIST 10/18/23 documented as of this encounter
--- OUTSIDE RECORDS SUMMARY | 2025-02-11 13:02 | XMS_ITS | Encounter Summary ---
Author Organization [facility] Address [facility] [place] [address] Care Team Providers Care Biological Scientist Name Role Phone Silverio Hines MD Primary Care Provider [phone] None, Provider Primary Care Provider Marlen Farmer MD Primary Care Provider Kassy vailable Encounter Details Date Type Department Care Team (Late st Contact Info) Description 03/19/2023 Abstract [facility], [address] [address] Leonora Heck, JESUS Social History Tobacco Use Types Packs/Day Years [...] as of this encounter Functional Status * Calculated C-SSRS Risk Score (Lifetime/Recent) Answer Date of Assessment Author Status No Risk Indicated 03/20/2023 12:58 PM Lexie Ferrell RN Active * Russell Suicide Severity Rating Scale (Screener/Recent Self-Report) Question Answer Date of Assessment Author Status 1. Wish to be (Past 1 Month) No 03/20/2023 12:58 PM Lexie Ferrell RN Active 2. Non-Specific Active Suicidal Thoughts (Past 1 Month) No 03/20/2023 12:58 PM Lexie Ferrell RN Active 6. Suicidal Behavior (Lifetime) No 03/20/2023 12:58 PM SALES ACCOUNT REPRESENTATIVE Lexie Granado, RN Active documented as of this encounter Plan of Treatment Upcoming Encounters Date Type Department Care Team (Late st Contact Info) Description 04/05/2025 11:40 AM SALES ACCOUNT REPRESENTATIVE Allied Health/Nurse Visit [facility] THREE [facility], [address] [place], [place] [phone] Stiven Ashley MD [facility]. [address] [place], [place] [phone] 08/17/2025 10:45 AM CDT Office Visit [facility] THREE [facility], [facility] [address] [place], [place] [phone] Whit Ballard PA 3 [facility] [address] [place], [place] [phone] documented as of this encounter Procedures Procedure Name Priority Date/Time Associated Diagnosis Comments CBC (OUTSIDE LAB) Routine 03/15/2023 documented in this encounter Results * (ABNORMAL) CBC (OUTSIDE LAB) (03/15/2023) WBC 3.6(A) 4.5 - 10.0 HGB 16.2 14.0 - 18.0 HCT 47.1 42.0 - 52.0 PLT 150 150 - 375 RBC 5.33 4.6 - 6.20 03/15/2023 us Default History Genericprovider LAB-OUTSIDE/ABST RACTED Final Result documented in this encounter Visit Diagnoses Not on filedocumented in this encounter Care Teams Biological Scientist Relationship Specialty Start Date End Date Silverio Hines MD [address] [phone] PCP - General INTERNAL MEDICINE 08/21/19 10/17/23 None, Provider, PCP - General UNKNOWN PHYSICIAN SPECIALTY 10/31/23 08/19/24 Marlen Eddy MD PCP - General 08/20/24 [place] [address] [place] [phone] Physician JD EDWARDS DEVELOPER 10/18/23 documented as of this encounter
--- OUTSIDE RECORDS SUMMARY | 2025-02-11 13:02 | XMS_ITS | Encounter Summary ---
Author Organization [facility] Address [facility], [facility] [place] [address] Care Team Providers Care News Director Name Role Phone Silverio Hines MD Primary Care Provider [phone] None, Provider Primary Care Provider Marlen Farmer MD Primary Care Provider Kassy vailable Encounter Details Date Type Department Care Team (Late Contact Info) Description 04/15/2023 Abstract [facility] [address] [place] [address] Rosina Medina MA Social History Tobacco Use Types Packs/Day Years [...] st Contact Info) Description 04/05/2025 11:40 AM RELATIONSHIP ASSOC Allied Health/Nurse Visit [place] [facility] [address] [place], [place] [phone] Stiven Ashley MD [facility]. [facility] [address] [place] [address] 08/17/2025 10:45 AM CDT Office Visit [place] [facility] [place] [address] [place] [address] Whit Ballard PA [address] [facility] [address] [place] [address] documented as of this encounter Procedures Procedure Name Priority Date/Time Associated Diagnosis Comments COMPREHENSIVE METABOLIC PANEL Routine 03/30/2023 CBC, MANUAL DIFF Routine 03/30/2023 documented in this encounter Results * COMPREHENSIVE METABOLIC PANEL (03/30/2023) BUN 17 CREATININE S/P/B 1.28 0.7 - 1.3 GFR ESTIMATE 61 us Default History Genericprovider LABORATORY Edited Result - Final * CBC, MANUAL DIFF (03/30/2023) HCT 47.8 us Default History Genericprovider LABORATORY Edited Result - Final documented in this encounter Visit Diagnoses Not on filedocumented in this encounter Care Teams News Director Relationship Specialty Start Date End Date Silverio Hines MD [address] [place] [phone] PCP - General INTERNAL MEDICINE 08/21/19 10/17/23 None, MD Anam PCP - General UNKNOWN PHYSICIAN SPECIALTY 10/31/23 08/19/24 Marlen Eddy MD PCP - General 08/20/24 Marlen Eddy MD [facility] [address] [place] [address] Physician SENIOR COMPLIANCE ANALYST 10/18/23 documented as of this encounter
--- OUTSIDE RECORDS SUMMARY | 2025-02-11 13:02 | XMS_ITS | Encounter Summary ---
Author Organization [facility] Address [address] [place] [address] Care Team Providers Care Filler Sifter Helper Name Role Phone Marlen Eddy MD Primary Care Provider Kassy vailable Encounter Details Date Type Department Care Team (Late Contact Info) Description 01/18/2025 MyChart Message Enc [place] [facility], [address] [phone] Stiven Ashley MD [facility]. 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 [facility] [address] [place], [place] [phone] 08/17/2025 10:45 AM CDT Office Visit [facility] [address] [place] [address] Whit Ballard PA 3 [facility] [address] [place] [address] documented as of this encounter Visit Diagnoses Not on filedocumented in this encounter Care Teams Filler Sifter Helper Relationship Specialty Start Date End Date Marlen Eddy MD PCP - General 08/20/24 Marlen Eddy MD [address] [place], [place] [phone] Physician SUPPLY CHAIN TECHNICIAN 10/18/23 documented as of this encounter
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
--- OUTSIDE RECORDS SUMMARY | 2025-02-11 13:02 | XMS_ITS | Clinical Summary ---
Author Organization [facility] [address] Address [address] [place] [address] Care Team Providers Care Transportation Assistant Name Role Phone Marlen Eddy MD Primary Care Provider [phone] Allergies No known active allergies Medications omeprazole [...] 100 mg as needed Active testosterone cypionate (DEPO-TESTOTERO NE) 100 mg/mL injection Inject 1 mL (100 [...] 0 days 4 Active syringe with needle (Carepoint Luer Lock Syr-needle) 3 mL 23 x 1 syringe 1 Syringe 4 Active tadalafiL (CIALIS) 5 mg tablet Take 1 tablet (5 mg total) by mouth as needed Active Active Problems Problem Noted Date Diagnosed [...] Presence of cardiac pacemaker 03/26/2017 Overview (09/09/2019): Tensed [employer] DDD Essentio L111 pacemaker implanted on 03/19/17 for SSS. [facility] remote monitoring. 09/09/2019-patient transferred to [facility] Assessment & Plan (07/01/2017 2:02 PM CDT): [...] is increased or symptoms are problematic. Currently [id number]=2. Continue beta- mikey. Status post placement of imp lantable loop recorder 03/04/2017 03/26/2017 Overview (03/04/2017): DNAdigesttronic Reveal Loop Recorder Dx; Syncope. DOI 03/01/[address] Benavides. [facility] remote home monitoring. Immunizations Immunization Administration Dates Next Due Influenza, Quadrivalent, Spl it, Preservative Free, Intramuscular 03/20/2017 Surgical History Surgery Date Site/Laterality Comments INSERT / REPLACE / REMOVE PACEMAKER Medical History Medical History Date Comments Hx Other Medical GERD, migraines , vasectomy; [place] [facility] [place] - Hx Other Medical heart attack; C omments: [facility] 09/10/2013 - Hx Other Medical cardiac cath; C omments: [facility] 09/10/2013 - Hx Other Medical not claustropho bic; Comments: [facility] 10/12/2013 - Syncope Sick sinus syndrome [...] on file Legal Sex Male 7:31 PM DIRECTOR PROCESS IMPROVEMENT Gender Identity Not on file Sexual Orientation [...] 12:35 PM CDT Height 185.4 cm (6' 1) 08/14/2024 12:35 PM CDT Body Mass Index 29.95 08/14/2024 12:35 PM CDT Plan of Treatment Health Maintenance Due Date Last Done Comments Colon Cancer Screening-Colonoscopy 1955 Depression Screening 1955 Fall Risk Assessment 1955 Hepatitis C Screening 1955 Prostate Cancer Screening-PSA 1955 Hepatitis B Screening 1973 Well Visit 65+ 2020 Covid-19 Vaccine (2 - 2024-2 6 season) 2024 11/27/2020 Influenza Vaccine (#1) 2024 , 01/07/2022, 02/01/2021, Additional history exists DTaP/Tdap/Td Vaccine (2 - Td or Tdap) 04/03/2032 04/03/2022, 07/14/2018 Zoster Vaccine Completed 09/21/2019, 03/02/2019 Pneumococcal vaccine 65+ Completed 04/18/2021, 04/01 Medical Devices Implanted Type Area Meat Stringer Device Identifier Shelf Expiration Date Model / Serial / Lot Pacemaker- Implanted: by Yoana Bradley MD (Quantity not on file) Pacemaker Chest Tensed [employer] SSS ESSENTIO [id number] / [id number] / Insurance MEDICARE [facility]IC[facility] Advance Directives For more information, please contact: [phone] Documents on File Type Date Recorded Patient Division Operations Manager Expl anation ADVANCE DIRECTIVE 03/19/2017 Advance Di rective Checklist Care Teams Transportation Assistant Relationship Specialty Start Date End Date Marlen Eddy MD [address] [place] [address] PCP - General Family Medicine 08/22/23
--- OUTSIDE RECORDS SUMMARY | 2025-02-11 13:02 | XMS_ITS | Encounter Summary ---
Author Organization [facility] Address [facility] [place] [address] Care Team Providers Care Small Brake Form Operator Name Role Phone None, Provider Primary Care Provider Marlen Farmer MD Primary Care Provider Kassy vailable Encounter Details Date Type Department Care Team (Late st Contact Info) Description 03/05/2024 [employer]hart Message Enc [facility] [address] [place], [place] [id number] Stiven Ashley MD [facility]. [facility] [address] [place], [place] [id number] Metoprolol dose Social History Tobacco Use Types Packs/Day Years [...] st Contact Info) Description 04/05/2025 11:40 AM AQUATICS DIRECTOR Allied Health/Nurse Visit [facility] [place], [place] [id number] Stiven Ashley MD [facility]. [address] [place], [place] [phone] 08/17/2025 10:45 AM CDT Office Visit [facility] [address] [place] [address] Whit Ballard PA [address] [facility] [address] [place] [address] documented as of this encounter Visit Diagnoses Not on filedocumented in this encounter Care Teams Small Brake Form Operator Relationship Specialty Start Date End Date None, Provider, PCP - General UNKNOWN PHYSICIAN SPECIALTY 10/31/23 08/19/24 Marlen Eddy MD PCP - General 08/20/24 [place] [address] [facility] [address] [place] [address] Physician ELECTROCARDIOGRAM TECHNICIAN 10/18/23 documented as of this encounter
[2025-02-11 13:05] LABS: Alanine Aminotransferase 26 U/L (6-50); Albumin Level 4.3 g/dL (3.5-5.1); Alkaline Phosphatase 66 U/L (38-126); Anion Gap 10 mmol/L (4-12); Aspartate Amino Transferase 34 U/L (17-59); Bilirubin,Total 1.0 mg/dL (0.2-1.3); Blood Urea Nitrogen 23 mg/dL (9-20); Calcium 8.6 mg/dL (8.4-10.2); Carbon Dioxide 21 mmol/L (22-30); Chloride 103 mmol/L (98-107); Estimated CRCL calculation 56 ml/min; Estimated Glomerular Filt Rate 56; Glucose 117 mg/dL (65-110); Lipase 48 U/L (23-300); Potassium 4.0 mmol/L (3.4-5.0); Sodium 134 mmol/L (137-145); Total Protein 7.6 g/dL (6.3-8.2)
[2025-02-11 13:07] LABS: INR 1.8; Prothrombin Time 20.4 Seconds (11.1-14.7)
[2025-02-11 13:08] LABS: Partial Thromboplastin Time 43.5 Seconds (22.3-36.8)
[2025-02-11 13:12] LABS: Troponin I < 0.012 ng/mL (0.000-0.034)
--- NOTE | 2025-02-11 13:38 | ED_ITS ---
HPI - GI Bleed General Chief complaint: GI Bleed <Za Sloan PA-C - Last Filed: 02/20/25 15:20> Stated complaint: coughing up blood <Za Sloan PA-C - Last Filed: 02/20/25 15:20> Time Seen by Provider: 02/11/25 13:38 <Za Sloan PA-C - Last Filed: 02/20/25 15:20> Focused HPI: This is a 69 year old male that presents to the ER for hematemesis. Reports 4 episodes today of vomiting dark blood this morning. No previous history of GI bleeding. Reports hiccups that he is not able to get rid of. He takes Xarelto daily. He last took this last night. He does take Omeprazole daily. GENERAL: Well-appearing, well-nourished, and in no acute distress. HEAD: Normocephalic, atraumatic. CHEST: No respiratory distress. HEART: Regular rate NEURO: ?Alert and oriented x3. Patient screened in triage and initial orders placed.? ?Additional care and disposition to be based upon?diagnostic testing and treatment. <Za Sloan PA-C - Last Filed: 02/20/25 15:20> History of Present Illness HPI Narrative: Agree the HPI. Vomiting dark blood this morning, has also been having dark stools. He is anticoagulated on Xarelto. <Sg Ariza MD - Last Filed: 02/20/25 15:34> Related Data Home medications: Home Medications ?Medication ?Instructions ?Recorded ?Confirmed ?Last Taken ?Type multivitamin 1 tablet PO DAILY 03/17/19 1 04/13/24 Unknown History mecobalamin (vitamin B12) 1,000 1,000 mcg sublingual D AILY 08/17/19 02/11/25 Unknown History mcg disintegrating tablet,sublingual rivaroxaban 20 mg tablet (Xarelto) 20 mg PO DAILY 11/2102/15/25 02/10/25 History Held on 02/15/25. Instructions: Resume on 02/16/25. testosterone cypionate 200 mg/mL 80 mg IM WEEKLY 09/2302/11/25 Unknown History intramuscular oil metoprolol tartrate 50 mg tablet 25 mg PO Q12H 5 02/11/25 Unknown History tadalafil 5 mg tablet (Cialis) 5 mg PO DAILY 02/12/25 02/12/25 Unknown History rosuvastatin 5 mg tablet 5 mg PO HS 02/13/25 02/13/25 Unknown History <Za Sloan PA-C - Last Filed: 02/20/25 15:20> Allergies/Adverse reactions: Allergies Allergy/AdvReac Type Severity Reaction Status Date / Time No Known Allergies Allergy Verified 02/15/25 07:45 <Za Sloan PA-C - Last Filed: 02/20/25 15:20> Review of Systems 2 Review of Systems: All systems reviewed & are unremarkable except as noted in HPI and below <Za Sloan PA-C - Last Filed: 02/20/25 15:20> PENDING SALE TO [facility] Past Medical History Medical History: Medical History A-fib Actinic keratosis Polycythemia Vitamin D deficiency Erectile dysfunction Hypogonadism in male Cardiac pacemaker [facility] drug therapy Hyperlipidemia Testosterone deficiency <Za Sloan PA-C - Last Filed: 02/20/25 15:20> Family History Family History: Family History Father Family history of malignant neoplasm Mother Family history of Alzheimer's disease <Za Sloan PA-C - Last Filed: 02/20/25 15:20> Social History Social History: Social History Smoking status: Never smoker Second hand tobacco smoke exposure: No Alcohol intake: current Drinks per week: 10 Substance use: never Lack of Transportation: No Lack of Food: Never True Current Housing: I Have Housing Concerned About Future Housing: No Difficulty Paying Gas/Electric Bills: No Difficulty Paying for Meds: No Currently Unemployed: No Education: Bachelor's Degree Difficulty w/ Childcare or Family Care: No Living arrangements: with family Occupation/Education: occupation Gender identity (if verbalized by the patient): Male Spiritual care concerns: No <Za Sloan PA-C - Last Filed: 02/20/25 15:20> Exam 2 Narrative: GENERAL: Well-appearing, well-nourished, and in no acute distress. HEAD: Normocephalic, atraumatic. ENT: Mucous membranes moist. NECK: Supple. CHEST: Clear to auscultation. No respiratory distress. HEART: Regular rate and rhythm. Normal peripheral pulses. ABDOMEN: Soft, nontender, nondistended, Hemoccult-positive stool on MINDY without gross blood EXTREMITIES: Normal range of motion. No edema. SKIN: Warm, dry, no rash. NEURO: Alert and oriented x3. PSYCH: Normal mood and affect. <Sg Ariza MD - Last Filed: 02/20/25 15:34> Course Course Emergency Course: In a patient resting comfortably. Admit to hospitalist service. GI consult. Will start on Protonix drip. <Sg Ariza MD - Last Filed: 02/20/25 15:34> Vital Signs Vital signs: Vital Signs Temperature 97.5 F L 02/11/25 12:22 Pulse Rate 72 02/11/25 12:22 Respiratory Rate 18 02/11/25 12:22 Blood Pressure 118/90 02/11/25 12:22 Pulse Oximetry 99 02/11/25 12:22 Oxygen Delivery Room Air 02/11/25 12:22 Temperature 97.2 F L 02/15/25 07:46 Pulse Rate 62 02/15/25 09:55 Respiratory Rate 21 H 02/15/25 09:31 Blood Pressure 113/69 02/15/25 09:31 Pulse Oximetry 98 02/15/25 09:31 Oxygen Delivery Room Air 02/15/25 09:31 Oxygen Flow Rate 5 02/12/25 14:10 <Za Sloan PA-C - Last Filed: 02/20/25 15:20> Vital Signs Temperature 97.5 F L 02/11/25 12:22 Pulse Rate 72 02/11/25 12:22 Respiratory Rate 18 02/11/25 12:22 Blood Pressure 118/90 02/11/25 12:22 Pulse Oximetry 99 02/11/25 12:22 Oxygen Delivery Room Air 02/11/25 12:22 Temperature 97.2 F L 02/15/25 07:46 Pulse Rate 62 02/15/25 09:55 Respiratory Rate 21 H 02/15/25 09:31 Blood Pressure 113/69 02/15/25 09:31 Pulse Oximetry 98 02/15/25 09:31 Oxygen Delivery Room Air 02/15/25 09:31 Oxygen Flow Rate 5 02/12/25 14:10 <Sg Ariza MD - Last Filed: 02/20/25 15:34> MDM - GI Bleed Lab Data Attestation: I reviewed the patient's lab results. <Sg Ariza MD - Last Filed: 02/20/25 15:34> Result diagrams: 02/15/25 04:25 02/15/25 04:25 <Za Sloan PA-C - Last Filed: 02/20/25 15:20> Labs: Lab Results 02/11/25 02/11/25 02/11/25 Range/Units 12:39 15:32 15:55 WBC 7.0 (4.5-10.0) K/mm3 RBC 6.06 (4.6-6.20) M/mm3 Hgb 16.1 (14.0-18.0) g/dL Hct 50.0 (42.0-52.0) % MCV 82.5 (80-100) fl MCH 26.6 (26-34) pg MCHC 32.2 (32-36) g/dl RDW 17.1 H (11.5-14.5) % Plt Count 148 L (150-375) k/mm3 MPV 9.4 (7.4-10.4) fl Immature Gran % (Auto) 0.3 (0-0.5) % Neut % (Auto) 84.4 H (45.5-73.1) % Lymph % (Auto) 6.9 L (18.3-44.2) % Grand % (Auto) 7.5 (2.6-8.5) % Eos % (Auto) 0.6 (0-4.4) % Baso % (Auto) 0.3 (0.2-1.2) % Lymph # (Auto) 0.48 L (0.9-3.2) K/mm3 Grand # (Auto) 0.5 (0.1-0.6) K/mm3 Eos # (Auto) 0.0 (0-0.3) K/mm3 Baso # (Auto) 0.0 (0.0-0.1) K/mm3 Abs Immat Gran (auto) 0.02 (0.00-0.031) K/mm3 Absolute Neuts (auto) 5.9 (1.3-6.7) K/mm3 Absolute Nucleated RBC 0.000 (0.0-0.012) K/mm3 Nucleated RBC % 0.0 (0.0-0.2) % PT 20.4 H (11.1-14.7) Seconds INR 1.8 APTT 43.5 H (22.3-36.8) Seconds Sodium 134 L (137-145) mmol/L Potassium 4.0 (3.4-5.0) mmol/L Chloride 103 (98-107) mmol/L Carbon Dioxide 21 L (22-30) mmol/L Anion Gap 10 (4-12) mmol/L BUN 23 H (9-20) mg/dL Creatinine 1.27 (0.7-1.3) mg/dL Estim Creat Clear Calc 56 ml/min Estimated GFR 56 L (59 - ) Glucose 117 H (65-110) mg/dL Calcium 8.6 (8.4-10.2) mg/dL Total Bilirubin 1.0 (0.2-1.3) mg/dL AST 34 (17-59) U/L ALT 26 (6-50) U/L Alkaline Phosphatase 66 (38-126) U/L Troponin I < 0.012 < 0.012 (0.000-0.034) ng/mL Total Protein 7.6 (6.3-8.2) g/dL Albumin 4.3 (3.5-5.1) g/dL Lipase 48 (23-300) U/L Gastric Fluid pH 3 (1-8) Gastric Occult Blood Negative 02/11/25 02/11/25 02/12/25 Range/Units 18:41 23:02 04:41 WBC 6.7 (4.5-10.0) K/mm3 RBC 5.01 (4.6-6.20) M/mm3 Hgb 14.5 13.4 L (14.0-18.0) g/dL Hct 45.7 42.5 (42.0-52.0) % MCV 84.8 (80-100) fl MCH 26.7 (26-34) pg MCHC 31.5 L (32-36) g/dl RDW 16.0 H (11.5-14.5) % Plt Count 144 L (150-375) k/mm3 MPV 10.1 (7.4-10.4) fl Immature Gran % (Auto) 0.6 H (0-0.5) % Neut % (Auto) 73.6 H (45.5-73.1) % Lymph % (Auto) 13.8 L (18.3-44.2) % Grand % (Auto) 11.2 H (2.6-8.5) % Eos % (Auto) 0.7 (0-4.4) % Baso % (Auto) 0.1 L (0.2-1.2) % Lymph # (Auto) 0.93 (0.9-3.2) K/mm3 Grand # (Auto) 0.8 H (0.1-0.6) K/mm3 Eos # (Auto) 0.1 (0-0.3) K/mm3 Baso # (Auto) 0.0 (0.0-0.1) K/mm3 Abs Immat Gran (auto) 0.04 H (0.00-0.031) K/mm3 Absolute Neuts (auto) 4.9 (1.3-6.7) K/mm3 Absolute Nucleated RBC 0.000 (0.0-0.012) K/mm3 Nucleated RBC % 0.0 (0.0-0.2) % PT 16.9 H (11.1-14.7) Seconds INR 1.4 APTT 38.2 H (22.3-36.8) Seconds Sodium 134 L (137-145) mmol/L Potassium 4.2 (3.4-5.0) mmol/L Chloride 103 (98-107) mmol/L Carbon Dioxide 23 (22-30) mmol/L Anion Gap 8 (4-12) mmol/L BUN 51 H D (9-20) mg/dL Creatinine 1.19 (0.7-1.3) mg/dL Estim Creat Clear Calc 59 ml/min Estimated GFR > 60 (59 - ) Glucose 98 (65-110) mg/dL Calcium 8.4 (8.4-10.2) mg/dL Total Bilirubin (0.2-1.3) mg/dL AST (17-59) U/L ALT (6-50) U/L Alkaline Phosphatase (38-126) U/L Troponin I < 0.012 (0.000-0.034) ng/mL Total Protein (6.3-8.2) g/dL Albumin (3.5-5.1) g/dL Lipase (23-300) U/L Gastric Fluid pH (1-8) Gastric Occult Blood 02/12/25 Range/Units 10:08 WBC (4.5-10.0) K/mm3 RBC (4.6-6.20) M/mm3 Hgb 12.9 L (14.0-18.0) g/dL Hct 40.3 L (42.0-52.0) % MCV (80-100) fl MCH (26-34) pg MCHC (32-36) g/dl RDW (11.5-14.5) % Plt Count (150-375) k/mm3 MPV (7.4-10.4) fl Immature Gran % (Auto) (0-0.5) % Neut % (Auto) (45.5-73.1) % Lymph % (Auto) (18.3-44.2) % Grand % (Auto) (2.6-8.5) % Eos % (Auto) (0-4.4) % Baso % (Auto) (0.2-1.2) % Lymph # (Auto) (0.9-3.2) K/mm3 Grand # (Auto) (0.1-0.6) K/mm3 Eos # (Auto) (0-0.3) K/mm3 Baso # (Auto) (0.0-0.1) K/mm3 Abs Immat Gran (auto) (0.00-0.031) K/mm3 Absolute Neuts (auto) (1.3-6.7) K/mm3 Absolute Nucleated RBC (0.0-0.012) K/mm3 Nucleated RBC % (0.0-0.2) % PT (11.1-14.7) Seconds INR APTT (22.3-36.8) Seconds Sodium (137-145) mmol/L Potassium (3.4-5.0) mmol/L Chloride (98-107) mmol/L Carbon Dioxide (22-30) mmol/L Anion Gap (4-12) mmol/L BUN (9-20) mg/dL Creatinine (0.7-1.3) mg/dL Estim Creat Clear Calc ml/min Estimated GFR (59 - ) Glucose (65-110) mg/dL Calcium (8.4-10.2) mg/dL Total Bilirubin (0.2-1.3) mg/dL AST (17-59) U/L ALT (6-50) U/L Alkaline Phosphatase (38-126) U/L Troponin I (0.000-0.034) ng/mL Total Protein (6.3-8.2) g/dL Albumin (3.5-5.1) g/dL Lipase (23-300) U/L Gastric Fluid pH (1-8) Gastric Occult Blood <Za Clement Sloan PA-C - Last Filed: 02/20/25 15:20> Lab Results 02/11/25 02/11/25 02/11/25 Range/Units 12:39 15:32 15:55 WBC 7.0 (4.5-10.0) K/mm3 RBC 6.06 (4.6-6.20) M/mm3 Hgb 16.1 (14.0-18.0) g/dL Hct 50.0 (42.0-52.0) % MCV 82.5 (80-100) fl MCH 26.6 (26-34) pg MCHC 32.2 (32-36) g/dl RDW 17.1 H (11.5-14.5) % Plt Count 148 L (150-375) k/mm3 MPV 9.4 (7.4-10.4) fl Immature Gran % (Auto) 0.3 (0-0.5) % Neut % (Auto) 84.4 H (45.5-73.1) % Lymph % (Auto) 6.9 L (18.3-44.2) % Grand % (Auto) 7.5 (2.6-8.5) % Eos % (Auto) 0.6 (0-4.4) % Baso % (Auto) 0.3 (0.2-1.2) % Lymph # (Auto) 0.48 L (0.9-3.2) K/mm3 Grand # (Auto) 0.5 (0.1-0.6) K/mm3 Eos # (Auto) 0.0 (0-0.3) K/mm3 Baso # (Auto) 0.0 (0.0-0.1) K/mm3 Abs Immat Gran (auto) 0.02 (0.00-0.031) K/mm3 Absolute Neuts (auto) 5.9 (1.3-6.7) K/mm3 Absolute Nucleated RBC 0.000 (0.0-0.012) K/mm3 Nucleated RBC % 0.0 (0.0-0.2) % PT 20.4 H (11.1-14.7) Seconds INR 1.8 APTT 43.5 H (22.3-36.8) Seconds Sodium 134 L (137-145) mmol/L Potassium 4.0 (3.4-5.0) mmol/L Chloride 103 (98-107) mmol/L Carbon Dioxide 21 L (22-30) mmol/L Anion Gap 10 (4-12) mmol/L BUN 23 H (9-20) mg/dL Creatinine 1.27 (0.7-1.3) mg/dL Estim Creat Clear Calc 56 ml/min Estimated GFR 56 L (59 - ) Glucose 117 H (65-110) mg/dL Calcium 8.6 (8.4-10.2) mg/dL Total Bilirubin 1.0 (0.2-1.3) mg/dL AST 34 (17-59) U/L ALT 26 (6-50) U/L Alkaline Phosphatase 66 (38-126) U/L Troponin I < 0.012 < 0.012 (0.000-0.034) ng/mL Total Protein 7.6 (6.3-8.2) g/dL Albumin 4.3 (3.5-5.1) g/dL Lipase 48 (23-300) U/L Gastric Fluid pH 3 (1-8) Gastric Occult Blood Negative 02/11/25 02/11/25 02/12/25 Range/Units 18:41 23:02 04:41 WBC 6.7 (4.5-10.0) K/mm3 RBC 5.01 (4.6-6.20) M/mm3 Hgb 14.5 13.4 L (14.0-18.0) g/dL Hct 45.7 42.5 (42.0-52.0) % MCV 84.8 (80-100) fl MCH 26.7 (26-34) pg MCHC 31.5 L (32-36) g/dl RDW 16.0 H (11.5-14.5) % Plt Count 144 L (150-375) k/mm3 MPV 10.1 (7.4-10.4) fl Immature Gran % (Auto) 0.6 H (0-0.5) % Neut % (Auto) 73.6 H (45.5-73.1) % Lymph % (Auto) 13.8 L (18.3-44.2) % Grand % (Auto) 11.2 H (2.6-8.5) % Eos % (Auto) 0.7 (0-4.4) % Baso % (Auto) 0.1 L (0.2-1.2) % Lymph # (Auto) 0.93 (0.9-3.2) K/mm3 Grand # (Auto) 0.8 H (0.1-0.6) K/mm3 Eos # (Auto) 0.1 (0-0.3) K/mm3 Baso # (Auto) 0.0 (0.0-0.1) K/mm3 Abs Immat Gran (auto) 0.04 H (0.00-0.031) K/mm3 Absolute Neuts (auto) 4.9 (1.3-6.7) K/mm3 Absolute Nucleated RBC 0.000 (0.0-0.012) K/mm3 Nucleated RBC % 0.0 (0.0-0.2) % PT 16.9 H (11.1-14.7) Seconds INR 1.4 APTT 38.2 H (22.3-36.8) Seconds Sodium 134 L (137-145) mmol/L Potassium 4.2 (3.4-5.0) mmol/L Chloride 103 (98-107) mmol/L Carbon Dioxide 23 (22-30) mmol/L Anion Gap 8 (4-12) mmol/L BUN 51 H D (9-20) mg/dL Creatinine 1.19 (0.7-1.3) mg/dL Estim Creat Clear Calc 59 ml/min Estimated GFR > 60 (59 - ) Glucose 98 (65-110) mg/dL Calcium 8.4 (8.4-10.2) mg/dL Total Bilirubin (0.2-1.3) mg/dL AST (17-59) U/L ALT (6-50) U/L Alkaline Phosphatase (38-126) U/L Troponin I < 0.012 (0.000-0.034) ng/mL Total Protein (6.3-8.2) g/dL Albumin (3.5-5.1) g/dL Lipase (23-300) U/L Gastric Fluid pH (1-8) Gastric Occult Blood 02/12/25 Range/Units 10:08 WBC (4.5-10.0) K/mm3 RBC (4.6-6.20) M/mm3 Hgb 12.9 L (14.0-18.0) g/dL Hct 40.3 L (42.0-52.0) % MCV (80-100) fl MCH (26-34) pg MCHC (32-36) g/dl RDW (11.5-14.5) % Plt Count (150-375) k/mm3 MPV (7.4-10.4) fl Immature Gran % (Auto) (0-0.5) % Neut % (Auto) (45.5-73.1) % Lymph % (Auto) (18.3-44.2) % Grand % (Auto) (2.6-8.5) % Eos % (Auto) (0-4.4) % Baso % (Auto) (0.2-1.2) % Lymph # (Auto) (0.9-3.2) K/mm3 Grand # (Auto) (0.1-0.6) K/mm3 Eos # (Auto) (0-0.3) K/mm3 Baso # (Auto) (0.0-0.1) K/mm3 Abs Immat Gran (auto) (0.00-0.031) K/mm3 Absolute Neuts (auto) (1.3-6.7) K/mm3 Absolute Nucleated RBC (0.0-0.012) K/mm3 Nucleated RBC % (0.0-0.2) % PT (11.1-14.7) Seconds INR APTT (22.3-36.8) Seconds Sodium (137-145) mmol/L Potassium (3.4-5.0) mmol/L Chloride (98-107) mmol/L Carbon Dioxide (22-30) mmol/L Anion Gap (4-12) mmol/L BUN (9-20) mg/dL Creatinine (0.7-1.3) mg/dL Estim Creat Clear Calc ml/min Estimated GFR (59 - ) Glucose (65-110) mg/dL Calcium (8.4-10.2) mg/dL Total Bilirubin (0.2-1.3) mg/dL AST (17-59) U/L ALT (6-50) U/L Alkaline Phosphatase (38-126) U/L Troponin I (0.000-0.034) ng/mL Total Protein (6.3-8.2) g/dL Albumin (3.5-5.1) g/dL Lipase (23-300) U/L Gastric Fluid pH (1-8) Gastric Occult Blood <Sg Ariza MD - Last Filed: 02/20/25 15:34> Imaging Data Radiologist's impression: ITS Impressions Chest X-Ray 02/11/25 13:23 IMPRESSION: No acute findings. <Sg Ariza MD - Last Filed: 02/20/25 15:34> Discharge Plan Discharge Clinical Impression: Hematemesis, Acute upper GI bleed <Za Sloan PA-C - Last Filed: 02/20/25 15:20> Patient Disposition: Still a Patient <Za Sloan PA-C - Last Filed: 02/20/25 15:20> Condition: Stable <Za Sloan PA-C - Last Filed: 02/20/25 15:20>
--- OUTSIDE RECORDS SUMMARY | 2025-02-11 15:11 | XMS_ITS | Encounter Summary ---
Author Organization [facility] Address [facility] [place] [address] Care Team Providers Care Supervisor Heavy Equipment Name Role Phone Silverio Hines MD Primary Care Provider [phone] None, Provider Primary Care Provider Marlen Farmer MD Primary Care Provider Kassy vailable Encounter Details Date Type Department Care Team (Late st Contact Info) Description 03/19/2023 Abstract [facility], [address] [address] Leonora Heck, JESUS Social History Tobacco Use [...] 12:58 PM Lexie Ferrell RN Active * Page Suicide Severity Rating Scale (Screener/Recent Self-Report) Question Answer Date of Assessment Author Status 1. Wish to be (Past 1 Month) No 03/20/2023 12:58 PM Lexie Ferrell RN Active 2. Non-Specific Active Suicidal Thoughts (Past 1 Month) No 03/20/2023 12:58 PM Lexie Ferrell RN Active 6. Suicidal Behavior (Lifetime) No 03/20/2023 12:58 PM QUANTITATIVE MANAGER Lexie Granado, RN Active documented as of this encounter Plan of Treatment Upcoming Encounters Date Type Department Care Team (Late st Contact Info) Description 04/05/2025 11:40 AM QUANTITATIVE MANAGER Allied Health/Nurse Visit [facility], [address] [place], [place] [id number] Stiven Ashley MD Three [facility]. [address] [place], [place] [phone] 08/17/2025 10:45 AM CDT Office Visit [facility], [facility] [address] [place], [place] [phone] Whit Ballard PA 3 [facility] [address] [place], [place] [phone] documented as of this encounter Procedures Procedure [...] on filedocumented in this encounter Care Teams Supervisor Heavy Equipment Relationship Specialty Start Date End Date Silverio Hines MD [address] [id number] PCP - General INTERNAL MEDICINE 08/21/19 10/17/23 None, Provider, PCP - General UNKNOWN PHYSICIAN SPECIALTY 10/31/23 08/19/24 Marlen Eddy MD PCP - General 08/20/24 [place] [id number] [place] [phone] Physician ROW BOSS 10/18/23 documented as of this encounter
--- OUTSIDE RECORDS SUMMARY | 2025-02-11 15:11 | XMS_ITS | Clinical Summary ---
Author Organization [facility] Address [address] [place] [address] Care Team Providers Care Plumber Gasfitter Name Role Phone Marlen Eddy MD Primary [...] 06 July 09 -Follows with cardiology in [place] and here -Continue Xarelto -Patient does not [...] Presence of cardiac pacemaker 03/26/2017 Overview (09/07/2019): [employer] D[employer] Essentio L111 pacemaker implanted on 03/19/17 for SSS. [facility] remote monitoring. Last Assessment & Plan: Normal device function. Latitude in 3 months. Syncope 12/22/2013 Overview (09/07/2019): Syncope Headache 12/22/2013 Overview (09/07/2019): Headache Encounters Date Type Department Care Team Description 01/18/2025 MyChart Message [facility], [facility] [address] [place] [address] Stiven Ashley MD Xarelto/Eliquis 01/11/2025 Telephone [facility], [place] [address] [place] [address] Stiven Ashley MD Information 01/07/2025 Telephone [facility], [address] [place] [address] Stiven Ashley MD Medication (xarelto) 01/04/2025 11:35 AM CDT Allied Health/Nurse Visit [facility], [place] [address] [place], [place] [address] Stiven Ashley MD Remote Device Check 01/04/2025 Telephone [facility], [place] [address] [place], [place] [phone] Catrina Ba RN Question 12/17/2024 Telephone [facility], [address] [phone] Whit Ballard PA Medication (ELIQUIS) 12/16/2024 Telephone [facility], [address], [place] [address] Stiven Ashley MD Medication (XARELTO VS ELIQUIS) [...] st Contact Info) Description 04/05/2025 11:40 AM WAFFLE MACHINE OPERATOR Allied Health/Nurse Visit [facility], [address] [address] Stiven Ashley MD [facility]. [address] [place], [place] [address] 08/17/2025 10:45 AM CDT Office Visit [facility], [facility] [address] [place], [place] [address] Whit Ballard PA 3 [facility] [address] [place], [place] [address] Health Maintenance Due Date Last Done Comments [...] this topic Medical Devices Implanted Type Area Cadmium Liquor Maker Device Identifier Shelf Expiration Date Model / Serial / Lot Atrial Lead Implant-03/19 Implanted: (Quantity not on file) Lead Implant [employer] [id number] / [id number] / Rv Lead Implant-03/19 Implanted: (Quantity not on file) Lead Implant [employer] [id number] / [id number] / Pacemaker [employer] [address] Mri Dr-03/20/2023 Implanted:Qty : 1 on 03/20/2023 by Stiven Ashley MD Pacemaker Left: Chest [employer] [id number] 01/22/2025 [id number] / [id number] / Explanted Type Area Cadmium Liquor Maker Device Identifier Shelf Expiration Date Model / Serial / Lot [id number] /19/2017 Implanted:03/19 (Quantity not on file) Explanted:Qty: 1 on 03/20/2023 by Stiven Ashley MD Pacemaker Description:2020 Battery Adv isory Insurance MEDICARE [facility] Advance Directives * Full Code (Latest Code Status on File) Date Activated Date Inactivated Comments 10/07/2023 11:46 AM 10/07/2023 5:25 PM * Full Code Date Activated Date Inactivated Comments 03/20/2023 4:58 PM 03/20/2023 7:36 PM Care Teams Plumber Gasfitter Relationship Specialty Start Date End Date Marlen Eddy MD PCP - General 08/20/24 Marlen Eddy MD [facility] [address] [place] [id number] Physician POWDER HAND 10/18/23
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
--- OUTSIDE RECORDS SUMMARY | 2025-02-11 15:11 | XMS_ITS | Encounter Summary ---
Author Organization [facility] Address [facility] [place] [address] Care Team Providers Care Electrical Engineering Drafting Officer Name Role Phone Silverio Hines MD Primary Care Provider [phone] None, Provider Primary Care Provider Marlen Farmer MD Primary Care Provider Kassy vailable Encounter Details Date Type Department Care Team (Late Contact Info) Description 03/11/2023 Tibersoft Message Enc [facility]al juhi [facility], [facility] [address] [place], [place] [phone] [place], [facility] Provider Pacemaker battery Social History Tobacco Use [...] (Late Contact Info) Description 04/05/2025 11:40 AM CLINICAL PHARMACY TECHNICIAN Allied Health/Nurse Visit [facility] on [facility], [facility] [address] [place], [place] [phone] Stiven Ashley MD [facility]. [facility] [address] [place] [address] 08/17/2025 10:45 AM CDT Office Visit [facility] on [facility] [address] [place] [address] Whit Ballard PA [address] [place] [address] documented as of this encounter Visit Diagnoses Not on filedocumented in this encounter Care Teams Electrical Engineering Drafting Officer Relationship Specialty Start Date End Date Silverio Hines MD [address] [phone] PCP - General INTERNAL MEDICINE 08/21/19 10/17/23 None, ProviderMD PCP - General UNKNOWN PHYSICIAN SPECIALTY 10/31/23 08/19/24 Marlen Eddy MD PCP - General 08/20/24 [place] [address] [facility] [address] [place] [phone] Physician RADIOTELEGRAPH OPERATOR SERVICER 10/18/23 documented as of this encounter
--- OUTSIDE RECORDS SUMMARY | 2025-02-11 15:11 | XMS_ITS | Encounter Summary ---
Author Organization [facility] Address [facility] [place] [address] Care Team Providers Care Entertainment Manager Name Role Phone Silverio Hines MD Primary Care Provider [phone] None, Provider Primary Care Provider Marlen Farmer MD Primary Care Provider Kassy vailable Encounter Details Date Type Department Care Team (Late Contact Info) Description 04/18/2023 MyChart Message Enc [place] [facility]-O'Fal juhi [facility], [address] [place], [place] [phone] Stiven Ashley MD [facility]. [facility] [address] [place] [address] New hat presser Social History Tobacco Use Types Packs/Day Years [...] (Late Contact Info) Description 04/05/2025 11:40 AM PROFESSOR OF LATIN AMERICAN STUDIES Allied Health/Nurse Visit [facility]'Fall on THREE [facility], [address] [place], [place] [phone] Stiven Ashley MD [facility]. [address] [place] [address] 08/17/2025 10:45 AM CDT Office Visit Ramone Kang-O'Fall on THREE [facility], [address] [place] [address] Whit Ballard PA [address] [place] [address] documented as of this encounter Visit Diagnoses Not on filedocumented in this encounter Care Teams Entertainment Manager Relationship Specialty Start Date End Date Silverio Hines MD [address] [phone] PCP - General INTERNAL MEDICINE 08/21/19 10/17/23 None, MD Anam PCP - General UNKNOWN PHYSICIAN SPECIALTY 10/31/23 08/19/24 Marlen Eddy MD PCP - General 08/20/24 Marlen Eddy MD [facility] [address] [place] [address] Physician ROTARY SLICING MACHINE OPERATOR 10/18/23 documented as of this encounter
--- OUTSIDE RECORDS SUMMARY | 2025-02-11 15:11 | XMS_ITS | Clinical Summary ---
Author Organization [facility] [address] Address [address] [place] [address] Care Team Providers Care Aluminum Molding Machine Operator Name Role Phone Marlen Eddy MD Primary Care Provider [phone] Allergies No known active allergies Medications omeprazole [...] Presence of cardiac pacemaker 03/26/2017 Overview (09/09/2019): [employer] DDD Essentio L111 pacemaker implanted on 03/19/17 for SSS. [facility] remote monitoring. 09/09/2019-patient transferred to [facility] Assessment & Plan (07/01/2017 2:02 PM [...] is increased or symptoms are problematic. Currently [id number]=3. Continue beta- mikey. Status post placement of imp lantable loop recorder 03/04/2017 03/26/2017 Overview (03/04/2017): sourceasytronic Reveal Loop Recorder Dx; Syncope. DOI 03/01/[address] Benavides. [facility] remote home monitoring. Immunizations Immunization Administration Dates Next Due Influenza, Quadrivalent, Spl it, Preservative Free, Intramuscular 03/20/2017 Surgical History Surgery Date Site/Laterality Comments INSERT / REPLACE / REMOVE PACEMAKER Medical History Medical History Date Comments Hx Other Medical GERD, migraines , vasectomy; Comments: [facility] 09/01/2013 - Hx Other Medical heart attack; C omments: [facility] 09/10/2013 - Hx Other Medical cardiac cath; C omments: [facility] 09/10/2013 - Hx Other Medical not claustropho bic; Comments: [facility] 10/12/2013 - Syncope Sick sinus syndrome (HCC) [...] on file Legal Sex Male 7:31 PM ORNITHOLOGY TEACHER Gender Identity Not on file Sexual Orientation [...] 04/18/2021, 04/01 Medical Devices Implanted Type Area Fish Housekeeper Device Identifier Shelf Expiration Date Model / Serial / Lot Pacemaker- Implanted: by Yoana Bradley MD (Quantity not on file) Pacemaker Chest [employer] SSS ESSENTIO [id number] / [id number] / Insurance MEDICARE [facility] MEDICARE [facility] Advance Directives For more information, please contact: [phone] Documents on File Type Date Recorded Patient Labeling Specialist Expl anation ADVANCE DIRECTIVE 03/19/2017 Advance Di rective Checklist Care Teams Aluminum Molding Machine Operator Relationship Specialty Start Date End Date Marlen Eddy MD [address] [place] [address] PCP - General Family Medicine 08/22/23
--- OUTSIDE RECORDS SUMMARY | 2025-02-11 15:11 | XMS_ITS | Encounter Summary ---
Author Organization [facility] Address [facility] [place] [address] Care Team Providers Care Shore Man Name Role Phone Silverio Hines MD Primary Care Provider [phone] None, Provider Primary Care Provider Marlen Farmer MD Primary Care Provider Kassy vailable Encounter Details Date Type Department Care Team (Late Contact Info) Description 09/29/2021 NetDevices Message Enc [place] [facility] llon [facility], [address] [phone] [place], [facility] Provider Disconnected Latitude Monitor Social History Tobacco [...] (Late Contact Info) Description 04/05/2025 11:40 AM MANGLE OPERATOR GARMENTS Allied Health/Nurse Visit [place] [facility]'Fall on [facility] [place] [address] [place], [place] [phone] Stiven Ashley [facility] [address] [place] [address] 08/17/2025 10:45 AM CDT Office Visit Ramone Kang-O'Fall on THREE [facility], [address] [place] [address] Whit Ballard PA [address] [facility] [address] [place] [address] documented as of this encounter Visit Diagnoses Not on filedocumented in this encounter Care Teams Shore Man Relationship Specialty Start Date End Date Silverio Hines MD [address] [place] [phone] PCP - General INTERNAL MEDICINE 08/21/19 10/17/23 None, MD Anam PCP - General UNKNOWN PHYSICIAN SPECIALTY 10/31/23 08/19/24 Marlen Eddy MD PCP - General 08/20/24 [place] [address] [phone] Physician MARKETING TEACHER 10/18/23 documented as of this encounter
--- OUTSIDE RECORDS SUMMARY | 2025-02-11 15:11 | XMS_ITS | Encounter Summary ---
Author Organization [facility] Address [facility] [place] [address] Care Team Providers Care Gas Engine Mechanic Name Role Phone None, Provider Primary Care Provider Marlen Farmer MD Primary Care Provider Kassy vailable Encounter Details Date Type Department Care Team (Late st Contact Info) Description 03/05/2024 Darwin Labhart Message Enc [place] [facility]-O'Fall on [facility] [address] [place], [place] [phone] Stiven Ashley MD [facility]. [facility] [address] [place], [place] [phone] Metoprolol dose Social History Tobacco Use Types [...] st Contact Info) Description 04/05/2025 11:40 AM RECREATIONAL THERAPY TECHNICIAN Allied Health/Nurse Visit [place] [facility] on THREE [facility], [address] [place], [place] [phone] Stiven Ashley MD [facility]. [address] [place], [place] [phone] 08/17/2025 10:45 AM CDT Office Visit [facility] [address] [place] [address] Whit Ballard PA [address] [facility] [address] [place] [address] documented as of this encounter Visit Diagnoses Not on filedocumented in this encounter Care Teams Gas Engine Mechanic Relationship Specialty Start Date End Date None, Provider, PCP - General UNKNOWN PHYSICIAN SPECIALTY 10/31/23 08/19/24 Marlen Eddy MD PCP - General 08/20/24 [place] [address] [facility] [address] [place] [address] Physician PARASITOLOGIST 10/18/23 documented as of this encounter
--- OUTSIDE RECORDS SUMMARY | 2025-02-11 15:11 | XMS_ITS | Clinical Summary ---
Author Organization [facility] Address [address] [place] [address] Care Team Providers Care Relocation Manager Name Role Phone Unavailable Primary Care [...] on file Legal Sex Male 12:38 PM PRODUCTION MATERIAL COORDINATOR Gender Identity Not on file Sexual Orientation [...] 185.4 cm (6' 1) 03/13/2022 1:32 PM PRODUCTION MATERIAL COORDINATOR Body Mass Index 29.39 03/13/2022 1:32 PM PRODUCTION MATERIAL COORDINATOR Plan of Treatment Upcoming Encounters Date Type Department Care Team (Late st Contact Info) Description 08/17/2025 1:15 PM CDT Office Visit [facility] Oncology and Hematology - [place] [address] [facility] [address] [place] [address] Josh Fierro MD [address] [facility] [address] [place] [address] Health Maintenance Due Date Last Done Comments Pre-Diabetes and Diabetes Screening 1955 COLORECTAL SCREENING 2000 Colorectal Cancer Screening 2000 FIT-DNA Q 3 years 2000 FIT/FOBT Q 1 year 2000 Flex Sig/CT Colonography Q 5 years 2000 INFLUENZA VACCINE (#1) 2024 , 01/08/2023, 03/20/2017 RSV VACCINE (60+ or ) (1 - 1-dose 75+ series) 2030 DTAP/TDAP/TD VACCINES (2 - T d or Tdap) 04/03/2032 04/03/2022 ZOSTER VACCINE Completed 09/21/2019, 03/02/2019 PNEUMOCOCCAL VACCINE 50+ YEARS Completed 04/18/2021 , 04/10/2020 Insurance MEDICARE PART A AND B [facility] MEDICARE PART A AND B [facility]
--- OUTSIDE RECORDS SUMMARY | 2025-02-11 15:11 | XMS_ITS | Encounter Summary ---
Author Organization [facility] Address [facility] [place] [address] Care Team Providers Care Land Reclamation Specialist Name Role Phone Silverio Hines MD Primary Care Provider [phone] None, Provider Primary Care Provider Marlen Farmer MD Primary Care Provider Kassy vailable Encounter Details Date Type Department Care Team (Late Contact Info) Description 04/15/2023 Abstract [facility], [facility] [address] [place] [address] Rosina Medina MA Social History Tobacco Use [...] st Contact Info) Description 04/05/2025 11:40 AM WEB APPLICATIONS DEVELOPER Allied Health/Nurse Visit [facility], [facility] [address] [place], [place] [phone] Stiven Ashley MD [facility]. [facility] [address] [place] [address] 08/17/2025 10:45 AM CDT Office Visit [facility] [place] [address] Whit Ballard PA [address] [place] [address] documented as of this encounter Procedures Procedure [...] on filedocumented in this encounter Care Teams Land Reclamation Specialist Relationship Specialty Start Date End Date Silverio Hines MD [address] [place] [phone] PCP - General INTERNAL MEDICINE 08/21/19 10/17/23 None, MD Anam PCP - General UNKNOWN PHYSICIAN SPECIALTY 10/31/23 08/19/24 Marlen Eddy MD PCP - General 08/20/[address] [facility] [address] [place] [address] Physician MONITORING TECH 10/18/23 documented as of this encounter
--- OUTSIDE RECORDS SUMMARY | 2025-02-11 15:11 | XMS_ITS | Encounter Summary ---
Author Organization [facility] Address [address] [place] [id number] Care Team Providers Care Information Systems Auditor Name Role Phone Marlen Eddy MD Primary Care Provider Kassy vailable Encounter Details Date Type Department Care Team (Late Contact Info) Description 01/18/2025 MyChart Message Enc [facility], [address] [phone] Stiven Ashley MD [facility]. [facility] [address] [place], [place] [phone] Xarelto/Eliquis Social History Tobacco Use Types Packs/Day [...] (Late Contact Info) Description 04/05/2025 11:40 AM RN PEDIATRIC ICU Allied Health/Nurse Visit [facility], [facility] [address] [place], [place] [phone] Stiven Ashley MD [facility]. [facility] [address] [place], [place] [phone] 08/17/2025 10:45 AM CDT Office Visit [facility] [address] [facility] [place] [address] Whit Ballard PA [address] [facility] [address] [place] [address] documented as of this encounter Visit Diagnoses Not on filedocumented in this encounter Care Teams Information Systems Auditor Relationship Specialty Start Date End Date Marlen Eddy MD PCP - General 08/20/24 Marlen Eddy MD [address] [place], [place] [phone] Physician PAPERBOARD BOXES ESTIMATOR 10/18/23 documented as of this encounter
--- NOTE | 2025-02-11 15:16 | ECG_ITS ---
Test Date: 2025-02-11 15:26:33 Measurements Intervals [place] Rate: 63 P: 61 [place]: 233 QRS: 19 QRSD: 83 T: -15 QT: 359 QTc: 370 Interpretive Statements SINUS RHYTHM WITH FIRST DEGREE AV BLOCK ABNORMAL ECG Compared to ECG 02/11/2025 12:33:06 NO DIFFERENCE Electronically Signed On 02-12-2025 12:55:21 PEN TESTER by Stiven Benavides M.D.
[2025-02-11] MEDS: ONDANSETRON INJ 4 MG/2 ML VIAL IV PUSH (15:45)
[2025-02-11] MEDS: PANTOPRAZOLE SODIUM IV 40 MG VIAL 80 MG IV PUSH (15:47)
[2025-02-11 16:08] LABS: Troponin I < 0.012 ng/mL (0.000-0.034)
[2025-02-11] MEDS: DICYCLOMINE HCL INJ 20 MG/2 ML VIAL IM (16:29)
[2025-02-11 16:36] LABS: Gastric Negative Control Negative; Gastric Positive Control Positive
[2025-02-11] MEDS: PANTOPRAZOLE SODIUM IV 80 MG in SODIUM CHLORIDE 0.9% IV 500 ML 50 MG IV CONT (17:22)
--- NOTE | 2025-02-11 17:39 | PM.IMHP ---
H&P: HPI History of Present Illness Date/Time: 02/11/25 17:39 Chief Complaint: Hematemesis, Dark Stools Narrative: 69 y/o M with PMH of atrial fibrillation on anticoagulation, polycythemia, hypogonadism, cardiac pacemaker, and hyperlipidemia The patient presents here from home on 02/11 for further evaluation of dark black emesis and dark loose stools. Patient reports onset of dark black emesis x4 this morning. Reports his emesis looked black with flecks of food. Additionally started having dark loose stools yesterday around 4:30 p.m. Patient is currently on Xarelto due to a history of Atrial Fibrillation. Patient also developed hiccups that started late this morning around the same time as the vomiting. Hiccups have continued into this afternoon. He denies any current nausea, vomiting, or abdominal pain. History of GERD on omeprazole daily. No prior hx of GI bleeds or hemorrhoids. Has not underwent a colonoscopy previously. Had a negative Cologuard in 2019 and in 2022 (however not on file). Has not underwent a previous EGD. Initial VS at presentation: 97.5? F, HR 72, R 18, 118/90, and 99% on RA. ED workup showed: No leukocytosis, hemoglobin 16.1, INR 1.8, sodium 134, creatinine 1.27 and GFR 56, glucose 117, initial troponin negative, gastric occult negative. CXR showed no acute findings. Initial EKG showed sinus rhythm with sinus arrhythmia with first-degree AV block, rate 69. Review of Systems Review of Systems: All systems reviewed & are unremarkable except as noted in HPI and below [facility] Past Medical History Medical History (Updated 02/11/25 @ 20:58 by Sarita Marks APRN) A-fib Actinic keratosis Polycythemia Vitamin D deficiency Erectile dysfunction Hypogonadism in male Cardiac pacemaker On mother helper drug therapy Hyperlipidemia Testosterone deficiency Family History Family History Father Family history of malignant neoplasm Mother Family history of Alzheimer's disease Social History Social History Smoking status: Never smoker Second hand tobacco smoke exposure: No Alcohol intake: current Drinks per week: 10 Substance use: never Lack of Transportation: No Lack of Food: Never True Current Housing: I Have Housing Concerned About Future Housing: No Difficulty Paying Gas/Electric Bills: No Difficulty Paying for Meds: No Currently Unemployed: No Education: Bachelor's Degree Difficulty w/ Childcare or Family Care: No Living arrangements: with family Occupation/Education: occupation Gender identity (if verbalized by the patient): Male Spiritual care concerns: No Meds Home Medications and Allergies Home Medications ?Medication ?Instructions ?Recorded ?Confirmed ?Type multivitamin 1 tablet PO DAILY 03/17/19 02/11/25 History mecobalamin (vitamin B12) 1,000 1,000 mcg sublingual DAILY 08/17/19 02/11/25 History mcg disintegrating tablet,sublingual rivaroxaban 20 mg tablet (Xarelto) 20 mg PO DAILY 11/06/22 02/11/25 History omeprazole 20 mg capsule,delayed See Rx Instructions .Route 03/06/23 02/11/25 Rx release .COMPLEX PRN GERD #90 caps rosuvastatin 5 mg tablet 5 mg PO DAILY #90 tabs 03/06/23 02/11/25 Rx sildenafil 100 mg tablet 100 mg PO DAILY PRN sexual 03/06/23 02/11/25 Rx activity #180 tabs testosterone cypionate 200 mg/mL 80 mg IM WEEKLY 09/23/24 02/11/25 History intramuscular oil metoprolol tartrate 50 mg tablet 25 mg PO Q12H 02/11/25 02/11/25 History Allergies Allergy/AdvReac Type Severity Reaction Status Date / Time No Known Allergies Allergy Verified 02/11/25 19:47 Vital Signs Vital Signs - 24 hr 02/11/25 12:22 02/11/25 15:33 Temperature 97.5 F L Pulse Rate 72 73 Respiratory Rate 18 20 Blood Pressure 118/90 119/70 Pulse Oximetry 99 97 Oxygen Delivery Room Air Room Air Exam Narrative: +hiccups Const: Other: , male, nontoxic appearance. Uncomfortable secondary to frequent hiccups. HENMT: Face/Nose/Sinus: Normal nares present Mouth: Yes moist mucous membranes Eyes: General: appearance normal, both eyes and all related structures Sclera: sclerae normal Pupils: Equal, round and reactive pupils present EOM: EOMs intact bilaterally Resp: Effort & Inspection: normal respiratory effort Auscultation: clear to auscultation bilaterally Cardio: Rate: regular rate Rhythm: regular rhythm Other: S1-S2 present without murmur, rub, ectopy GI: Other: Abdomen soft, nondistended, nontender. Normoactive bowel sounds in all quadrants. Frequent hiccups present. Skin: General skin exam: normal color and no rashes or lesions noted Wounds: no wounds Neuro: Speech: normal speech Motor exam (neuro): 5/5 motor strength present throughout Sensory Exam: normal sensation Other: A&O x4 Extrem: General: normal to inspection Psych: Mental Status: mental status grossly normal Affect: normal affect Other: Good insight and judgment, very pleasant H&P: Results Labs Labs: Short CBC 02/11/25 Range/Units 12:39 WBC 7.0 (4.5-10.0) K/mm3 Hgb 16.1 (14.0-18.0) g/dL Hct 50.0 (42.0-52.0) % Plt Count 148 L (150-375) k/mm3 BMP 02/11/25 12:39 Sodium 134 L Potassium 4.0 Chloride 103 Carbon Dioxide 21 L BUN 23 H Creatinine 1.27 Glucose 117 H Calcium 8.6 Cardiac Enzymes 02/11/25 02/11/25 Range/Units 12:39 15:32 Troponin I < 0.012 < 0.012 (0.000-0.034) ng/mL Liver Function 02/11/25 Range/Units 12:39 Total Bilirubin 1.0 (0.2-1.3) mg/dL AST 34 (17-59) U/L ALT 26 (6-50) U/L Alkaline Phosphatase 66 (38-126) U/L Albumin 4.3 (3.5-5.1) g/dL Assessment and Plan Assessment and plan (1) GI bleed: Qualifiers: GI bleed type/associated pathology: unspecified gastrointestinal hemorrhage type Qualified Code(s): K92.2 - Gastrointestinal hemorrhage, unspecified Code(s): K92.2 - Gastrointestinal hemorrhage, unspecified Status: Acute Assessment and Plan: Patient here with new hematemesis and dark loose stools. Patient has a history of atrial fibrillation on Xarelto. Per ED provider, emesis was black but gastroccult negative. Guaiac positive on 02/11. Patient has history of polycythemia, hemoglobin 16.1 upon admission. No previous colonoscopy or EGD on file. Had negative Cologuard in 2019 and per was also negative in 2022 however not on file. Reviewed vital signs in the ED, no hemodynamic instability. - clear liquid diet, NPO midnight - pantoprazole 80 mg IVP -> pantoprazole gtt - GI consulted - hold Xarelto, add SCDs. Recheck coags in a.m.. - thorazine prn for hiccups, if no improvement could consider increasing thorazine or adding metoclopramide. Patient additionally receiving at small dose of oral Valium for muscle aches/spasms related to the hiccups. - monitor H&H (2) A-fib: Qualifiers: Atrial fibrillation type: unspecified Qualified Code(s): I48.91 - Unspecified atrial fibrillation Code(s): I48.91 - Unspecified atrial fibrillation Status: Chronic Assessment and Plan: History of atrial fibrillation on Xarelto and metoprolol. Currently here with history and workup concerning for GI bleed. - continue metoprolol 25 mg b.i.d. - hold Xarelto, concern for active bleeding. Add SCDs. 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 Per their note, last blood donation in November 2022. - monitor hemoglobin (4) Hyperlipidemia: Qualifiers: Hyperlipidemia type: mixed hyperlipidemia Qualified Code(s): E78.2 - Mixed hyperlipidemia Code(s): E78.5 - Hyperlipidemia, unspecified Status: Chronic Assessment and Plan: - hold rosuvastatin, will likely undergo scope tomorrow. Resume when appropriate. Plan Diet: Clear liquid, NPO midnight GI Prophylaxis: PPI gtt DVT Prophylaxis: Hold Xarelto, SCDs IV fluids: 50 mL/hr via PPI infusion Lines/Tubes: Peripheral IV Code Status: Full code Quality VTE Prophylaxis VTE prophylaxis: mechanical ordered If No VTE Prophylaxis Answer both mechanical and pharmacologic: Reason no pharmacologic proph: medical contraindication active bleeding/bleeding risk Hospitalist MIPS Advance Care Plan I have confirmed that the patient's Advanced Care Plan is present, code status is documented, or surrogate decision maker is listed in patient medical record.: Yes Medication Reconciliation I have utilized all available resources to obtain, update and review the patients current medications (includes all prescriptions, OTC, herbals, cannabis, and nutritional supplements).: Yes
--- NOTE | 2025-02-11 18:24 | WPCEDHO ---
ED Hand Off Checklist All vitals saved: yes IV Site documented: yes All med administrations documented: yes Triage Note Triage Note Pt presenting with dark/black 02/11/25 15:33 emesis that started this am, reports five bouts of emesis today since 0800. Pt states numerous dark colored loose stools since last evening. Pt on Xarelto, pacemaker in place for SSS. Pt reports excessive, uncontrolled hiccupping that started this am as well. Allergies No Known Allergies Allergy (Verified 02/11/25 12:28) Family History (Last Reviewed 02/11/25 @ 17:42 by Sarita Marks APRN) Father Family history of malignant neoplasm Mother Family history of Alzheimer's disease Active Medications including assessments/comments Pantoprazole Sodium 80 mg/ (Sodium Chloride) 500 mls @ 50 mls/hr IV CONT .Q10H STA Stop: 02/12/25 02:33 Last Admin: 02/11/25 17:22 Dose: 50 mls/hr Documented By: LEYDI Infusion/Titration Document 02/11/25 17:22 LEYDI (Rec: 02/11/25 17:22 LEYDI [id number]) Intake IV Site Peripheral Access Right Antecubital Container Volume 500 Waste Amount 0 Dosing Infusion Rate 50 Increase/Decrease Started Elapsed Time Elapsed Time ( 0m minutes) Administered/Completed Medications Discontinued Medications Dicyclomine HCl (Dicyclomine Hcl Inj 20 Mg/2 Ml Vial) 20 mg IM ONCE STA Stop: 02/11/25 15:44 Last Admin: 02/11/25 16:29 Dose: 20 mg Documented By: LEYDI Ondansetron HCl (Ondansetron Inj 4 Mg/2 Ml Vial) 4 mg IV PUSH ONCE STA Stop: 02/11/25 13:38 Last Admin: 02/11/25 15:45 Dose: 4 mg Documented By: LEYDI Pantoprazole Sodium (Pantoprazole Sodium Iv 40 Mg Vial) 80 mg IV PUSH ONCE STA Stop: 02/11/25 13:37 Last Admin: 02/11/25 15:47 Dose: 80 mg Documented By: LEYDI Interventions/Assessments IV / Saline Lock, Insert Start: 02/11/25 12:28 Freq: STAT Status: Active Protocol: Document 02/11/25 15:33 LEYDI (Rec: 02/11/25 15:33 LEYDI [id number]) IV Assessment Peripheral Access Right Antecubital IV Catheter Access Initiated IV Insertion Date 02/11/25 IV Insertion Time 15:33 Catheter Gauge 20 IV Insertion 2 Attempts Ultrasound Used for No Placement IV Site Assessment WNL IV Care and WNL,Dressing Applied, Dated, Timed, and Initialed Maintenance Last Vital Signs Temperature 97.5 F L 02/11/25 12:22 Pulse Rate 62 02/11/25 18:01 Respiratory Rate 18 02/11/25 18:01 Pulse Oximetry 95 02/11/25 18:15 Blood Pressure 103/86 02/11/25 18:01 Blood Pressure Mean 91 02/11/25 18:01 Blood Pressure Position Sitting 02/11/25 15:33 Oxygen Delivery Room Air 02/11/25 15:33 Weight 97.8 kg 02/11/25 15:33 Last Result - Abnormals Only RDW 17.1 % (11.5-14.5) H 02/11/25 12:39 Plt Count 148 k/mm3 (150-375) L 02/11/25 12:39 Neut % (Auto) 84.4 % (45.5-73.1) H 02/11/25 12:39 Lymph % (Auto) 6.9 % (18.3-44.2) L 02/11/25 12:39 Lymph # (Auto) 0.48 K/mm3 (0.9-3.2) L 02/11/25 12:39 PT 20.4 Seconds (11.1-14.7) H 02/11/25 12:39 APTT 43.5 Seconds (22.3-36.8) H 02/11/25 12:39 Sodium 134 mmol/L (137-145) L 02/11/25 12:39 Carbon Dioxide 21 mmol/L (22-30) L 02/11/25 12:39 BUN 23 mg/dL (9-20) H 02/11/25 12:39 Estimated GFR 56 (59-) L 02/11/25 12:39 Glucose 117 mg/dL (65-110) H 02/11/25 12:39 Most Recent Suicide Severity Rating Suicide Severity Rating NO RISK INDICATED 02/11/25 15:33
--- NOTE | 2025-02-11 18:49 | PC.NURSE ---
Pt had GI cocktail ordered for his hiccups. RN went to administer medication and pt reported he has not had any hiccups x at least 40 minutes, states they stopped as soon as he started consuming his clear liquid diet. Admitting RN made aware.
[2025-02-11 19:18] LABS: Troponin I < 0.012 ng/mL (0.000-0.034)
--- NOTE | 2025-02-11 19:31 | ADMGEN ---
This patient, Mike Coleman, was admitted to Medical Room 252-01. Patient/family oriented to hospital policies and general routines including ID bracelet, bed and alarms, visiting hours, pain management, procedures, bathroom and other care routines, personal items, smoking policy, room service/diet, and visiting hours. Information on how to activate the Rapid Response Team has been discussed. Patient/Family are encouraged to report perceived risks to care and to ask questions if they do not understand what they are told or what they should do.
[2025-02-11] MEDS: diazePAM (*CRX) 2.5 MG TABLET PO (20:47)
[2025-02-11] MEDS: METOPROLOL TARTRATE 25 MG TABLET PO (21:20)
[2025-02-11 23:07] LABS: Hematocrit 45.7 % (42.0-52.0); Hemoglobin 14.5 g/dL (14.0-18.0)
[2025-02-12] VITALS (16 sets, daily range): BP systolic 110–127; BP diastolic 60–75; PULSE 60–84; RESP 16–20; TEMP 36.5–37.2; O2SAT 92–98
--- NOTE | 2025-02-12 00:10 | ECG_ITS ---
Test Date: 2025-02-12 00:12:01 Measurements Intervals [place] Rate: 68 P: 58 OR: 224 QRS: 48 QRSD: 90 T: -35 QT: 357 QTc: 381 Interpretive Statements ELECTRONIC ATRIAL PACEMAKER ALTERNATES WITH INTRINSIC SINUS RHYTHM SENSING AND CAPTURE ARE APPROPRIATELY DEMONSTRATED IN THE [facility] NONSPECIFIC [facility] & T-WAVE ABNORMALITY ABNORMAL ECG Compared to ECG 02/11/2025 15:26:33 ATRIAL PACING IS DEMONSTRATED Electronically Signed On 02-12-2025 13:10:05 NUT DEHYDRATOR OPERATOR by Stiven Benavides M.D.
[2025-02-12 05:03] LABS: Hematocrit 42.5 % (42.0-52.0); Hemoglobin 13.4 g/dL (14.0-18.0); Immature Granulocyte Percent A 0.6 % (0-0.5); Lymphocytes Absolute Auto 0.93 K/mm3 (0.9-3.2); Mean Corpuscular HGB Conc 31.5 g/dl (32-36); Mean Corpuscular Hemoglobin 26.7 pg (26-34); Mean Corpuscular Volume 84.8 fl (80-100); Nucleated Red Blood Cells Absolute Auto 0.000 K/mm3 (0.0-0.012); Nucleated Red Blood Cells Perc 0.0 % (0.0-0.2); Platelet Count Result 144 k/mm3 (150-375); Red Blood Count 5.01 M/mm3 (4.6-6.20); White Blood Count 6.7 K/mm3 (4.5-10.0)
[2025-02-12 05:12] LABS: Anion Gap 8 mmol/L (4-12); Blood Urea Nitrogen 51 mg/dL (9-20); Calcium 8.4 mg/dL (8.4-10.2); Carbon Dioxide 23 mmol/L (22-30); Chloride 103 mmol/L (98-107); Estimated CRCL calculation 59 ml/min; Estimated Glomerular Filt Rate > 60; Glucose 98 mg/dL (65-110); INR 1.4; Potassium 4.2 mmol/L (3.4-5.0); Prothrombin Time 16.9 Seconds (11.1-14.7); Sodium 134 mmol/L (137-145)
[2025-02-12 05:13] LABS: Partial Thromboplastin Time 38.2 Seconds (22.3-36.8)
--- NOTE | 2025-02-12 08:02 | P.PNIM_ITS ---
Progress Note: A&P Assessment and Plan (1) GI bleed: Qualifiers: GI bleed type/associated pathology: unspecified gastrointestinal hemorrhage type Qualified Code(s): K92.2 - Gastrointestinal hemorrhage, unspecified Code(s): K92.2 - Gastrointestinal hemorrhage, unspecified Status: Acute Assessment and Plan: Patient here with new hematemesis and dark loose stools. Patient has a history of atrial fibrillation on Xarelto. Per ED provider, emesis was black but gastroccult negative. Guaiac positive on 02/11. Patient has history of polycythemia, hemoglobin 16.1 upon admission. No previous colonoscopy or EGD on file. Had negative Cologuard in 2019 and per was also negative in 2022 however not on file. Reviewed vital signs in the ED, no hemodynamic instability. - Hgb 16.1-->12.9 - continue IV Protonix BID - GI consulted - planning for EGD today - continue IV fluids - hold Xarelto, add SCDs. Recheck coags in a.m.. - thorazine prn for hiccups, if no improvement could consider increasing thorazine or adding metoclopramide. Patient additionally receiving at small dose of oral Valium for muscle aches/spasms related to the hiccups. - monitor H&H (2) A-fib: Qualifiers: Atrial fibrillation type: unspecified Qualified Code(s): I48.91 - Unspecified atrial fibrillation Code(s): I48.91 - Unspecified atrial fibrillation Status: Chronic Assessment and Plan: History of atrial fibrillation on Xarelto and metoprolol. Currently here with history and workup concerning for GI bleed. - continue metoprolol 25 mg b.i.d. - hold Xarelto, concern for active bleeding. Add SCDs. 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 Per their note, last blood donation in November 2022. - monitor hemoglobin (4) Hyperlipidemia: Qualifiers: Hyperlipidemia type: mixed hyperlipidemia Qualified Code(s): E78.2 - Mixed hyperlipidemia Code(s): E78.5 - Hyperlipidemia, unspecified Status: Chronic Assessment and Plan: - hold rosuvastatin prior to EGD. Resume when appropriate. Plan DVT Prophylaxis: Hold Cari Hickman Code Status: Full code Dispo: home pending clinical course Subjective Date/time seen: 02/12/25 08:02 Interval history: Patient seen and examined at bedside. Patient denies further episodes of emesis or dark stool. Denies abdominal pain. Complaining of intermittent hiccups. Review of Systems Review of Systems: All systems reviewed & are unremarkable except as noted in HPI and below Exam Narrative: General: NAD Eyes: EOMI ENT: neck supple Cardiovascular: Regular rate and rhythm Respiratory: Clear to auscultation, respirations even and unlabored on RA Gastrointestinal: Soft, non tender Genitourinary: no suprapubic tenderness Musculoskeletal: No edema Skin: warm, dry Neuro: Alert. Psych: Mood appropriate Objective Data Vital Signs Vital Signs: Vital Signs - 24 hr 02/11/25 12:22 02/11/25 15:16 02/11/25 15:17 Temperature 97.5 F L Pulse Rate 72 73 69 Respiratory Rate 18 20 15 Blood Pressure 118/90 121/82 Pulse Oximetry 99 96 97 Oxygen Delivery Room Air 02/11/25 15:30 02/11/25 15:31 02/11/25 15:33 Temperature Pulse Rate 63 62 73 Respiratory Rate 20 19 20 Blood Pressure 119/70 119/70 Pulse Oximetry 97 97 97 Oxygen Delivery Room Air 02/11/25 15:45 02/11/25 15:46 02/11/25 16:00 Temperature Pulse Rate 67 69 70 Respiratory Rate 18 20 17 Blood Pressure 134/77 Pulse Oximetry 96 96 Oxygen Delivery 02/11/25 16:01 02/11/25 16:15 02/11/25 16:16 Temperature Pulse Rate 87 Respiratory Rate 19 Blood Pressure 121/79 137/69 Pulse Oximetry 96 96 96 Oxygen Delivery 02/11/25 16:32 02/11/25 16:45 02/11/25 16:46 Temperature Pulse Rate 61 74 65 Respiratory Rate 18 18 19 Blood Pressure 124/77 Pulse Oximetry 97 96 94 Oxygen Delivery 02/11/25 17:00 02/11/25 17:01 02/11/25 17:15 Temperature Pulse Rate 84 69 74 Respiratory Rate 20 19 17 Blood Pressure 142/88 H Pulse Oximetry 98 100 98 Oxygen Delivery 02/11/25 17:30 02/11/25 17:31 02/11/25 17:45 Temperature Pulse Rate 60 70 64 Respiratory Rate 16 20 Blood Pressure 130/94 H Pulse Oximetry 94 92 94 Oxygen Delivery 02/11/25 18:00 02/11/25 18:01 02/11/25 18:15 Temperature Pulse Rate 62 Respiratory Rate 18 Blood Pressure 103/86 Pulse Oximetry 97 97 95 Oxygen Delivery 02/11/25 19:56 02/11/25 21:20 02/12/25 00:00 Temperature Pulse Rate 63 64 73 Respiratory Rate Blood Pressure Pulse Oximetry Oxygen Delivery 02/12/25 04:00 02/12/25 05:19 Temperature 97.7 F Pulse Rate 70 66 Respiratory Rate 18 Blood Pressure 115/61 Pulse Oximetry 98 Oxygen Delivery Meds/Results Medications: Active Medications Generic Name Dose Route Start Last Admin Trade Name Freq PRN Reason Stop Dose Admin Acetaminophen 650 mg 02/11/25 17:43 Acetaminophen 325 Mg Tablet PO Q4H PRN Mild Pain (1-3) or Fever Chlorpromazine HCl 25 mg 02/11/25 20:37 02/12/25 07:32 Chlorpromazine Hcl 25 Mg Tablet PO 25 mg Q6H PRN Administration Hiccups Metoprolol Tartrate 25 mg 02/11/25 21:00 02/11/25 21:20 Metoprolol Tartrate 25 Mg Tablet PO 25 mg Q12HR NATHALIE Administration Morphine Sulfate 2 mg 02/11/25 17:43 Morphine Sulfate (*Crx) 4 Mg/Ml Inj IV PUSH Q2H PRN Pain Rated 7-10 Ondansetron HCl 4 mg 02/11/25 17:43 Ondansetron Inj 4 Mg/2 Ml Vial IV PUSH Q4H PRN Nausea Radiology Results: ITS Impressions Chest X-Ray 02/11/25 13:23 IMPRESSION: No acute findings. Labs Labs: Laboratory Results - last 24 hr 02/11/25 02/11/25 02/11/25 12:39 15:32 15:55 WBC 7.0 RBC 6.06 Hgb 16.1 Hct 50.0 MCV 82.5 MCH 26.6 MCHC 32.2 RDW 17.1 H Plt Count 148 L MPV 9.4 Immature Gran % (Auto) 0.3 Neut % (Auto) 84.4 H Lymph % (Auto) 6.9 L [place] % (Auto) 7.5 Eos % (Auto) 0.6 Baso % (Auto) 0.3 Lymph # (Auto) 0.48 L [place] # (Auto) 0.5 Eos # (Auto) 0.0 Baso # (Auto) 0.0 Abs Immat Gran (auto) 0.02 Absolute Neuts (auto) 5.9 Absolute Nucleated RBC 0.000 Nucleated RBC % 0.0 PT 20.4 H INR 1.8 APTT 43.5 H Sodium 134 L Potassium 4.0 Chloride 103 Carbon Dioxide 21 L Anion Gap 10 BUN 23 H Creatinine 1.27 Estim Creat Clear Calc 56 Estimated GFR 56 L Glucose 117 H Calcium 8.6 Total Bilirubin 1.0 AST 34 ALT 26 Alkaline Phosphatase 66 Troponin I < 0.012 < 0.012 Total Protein 7.6 Albumin 4.3 Lipase 48 Gastric Fluid pH 3 Gastric Occult Blood Negative 02/11/25 02/11/25 02/12/25 18:41 23:02 04:41 WBC 6.7 RBC 5.01 Hgb 14.5 13.4 L Hct 45.7 42.5 MCV 84.8 MCH 26.7 MCHC 31.5 L RDW 16.0 H Plt Count 144 L MPV 10.1 Immature Gran % (Auto) 0.6 H Neut % (Auto) 73.6 H Lymph % (Auto) 13.8 L [place] % (Auto) 11.2 H Eos % (Auto) 0.7 Baso % (Auto) 0.1 L Lymph # (Auto) 0.93 [place] # (Auto) 0.8 H Eos # (Auto) 0.1 Baso # (Auto) 0.0 Abs Immat Gran (auto) 0.04 H Absolute Neuts (auto) 4.9 Absolute Nucleated RBC 0.000 Nucleated RBC % 0.0 PT 16.9 H INR 1.4 APTT 38.2 H Sodium 134 L Potassium 4.2 Chloride 103 Carbon Dioxide 23 Anion Gap 8 BUN 51 H D Creatinine 1.19 Estim Creat Clear Calc 59 Estimated GFR > 60 Glucose 98 Calcium 8.4 Total Bilirubin AST ALT Alkaline Phosphatase Troponin I < 0.012 Total Protein Albumin Lipase Gastric Fluid pH Gastric Occult Blood Quality VTE Prophylaxis VTE prophylaxis: mechanical ordered
[2025-02-12] MEDS: METOPROLOL TARTRATE 25 MG TABLET PO ×2 (08:46→21:48)
[2025-02-12 10:15] LABS: Hematocrit 40.3 % (42.0-52.0); Hemoglobin 12.9 g/dL (14.0-18.0)
[2025-02-12] MEDS: PANTOPRAZOLE SODIUM IV 40 MG VIAL IV PUSH ×2 (10:39→21:49)
[2025-02-12] MEDS: LACTATED RINGERS 1,000 ML 100 ML IV CONT (10:39)
[2025-02-12] MEDS: DICYCLOMINE HCL INJ 20 MG/2 ML VIAL IM ×2 (10:47→21:50)
--- NOTE | 2025-02-12 12:31 | WPDGICN ---
Assessment and Plan Assessment and plan (1) GI bleed: Qualifiers: GI bleed type/associated pathology: unspecified gastrointestinal hemorrhage type Qualified Code(s): K92.2 - Gastrointestinal hemorrhage, unspecified Code(s): K92.2 - Gastrointestinal hemorrhage, unspecified Status: Acute Assessment and Plan: Patient currently hemodynamically stable, waiting for EGD to determine exact source of bleeding. Differential diagnosis includes peptic ulcer disease, erosive gastritis, Rita-Putnam tear, Dieulafoy's lesions or, less likely neoplasm. Will continue PPIs for now and keep the patient NPO. GI Consult Note Consult date/time: 02/12/25 12:31 Reason for consult: Hematemesis HPI: Mike Coleman is a 69 year old male with history of atrial fibrillation on Xarelto, status post pacemaker placement. The patient vomited coffee-ground material 3 times yesterday, followed by the passage of very dark stools. He feels somewhat weak and dizzy but did not have syncope. Laboratory data at admission: Hemoglobin 16.1, platelet count 148, the prothrombin time 16.9 seconds, INR 1.4, creatinine 1.27. BUN went from 23-51 today. After fluid administration, the patient's hemoglobin today is 13.4. No history of alcohol abuse. 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 Hyperlipidemia Testosterone deficiency Family History Family History Father Family history of malignant neoplasm Mother Family history of Alzheimer's disease Social History Social History Smoking status: Never smoker Second hand tobacco smoke exposure: No Alcohol intake: current Drinks per week: 10 Substance use: never Lack of Transportation: No Lack of Food: Never True Current Housing: I Have Housing Concerned About Future Housing: No Difficulty Paying Gas/Electric Bills: No Difficulty Paying for Meds: No Currently Unemployed: No Education: Bachelor's Degree Difficulty w/ Childcare or Family Care: No Living arrangements: with family Occupation/Education: occupation Gender identity (if verbalized by the patient): Male Spiritual care concerns: No Meds Home Medications and Allergies Home Medications ?Medication ?Instructions ?Recorded ?Confirmed ?Type multivitamin 1 tablet PO DAILY 03/17/19 02/11/25 History mecobalamin (vitamin B12) 1,000 1,000 mcg sublingual DAILY 08/17/19 02/11/25 History mcg disintegrating tablet,sublingual rivaroxaban 20 mg tablet (Xarelto) 20 mg PO DAILY 11/06/22 02/11/25 History omeprazole 20 mg capsule,delayed See Rx Instructions .Route 03/06/23 02/11/25 Rx release .COMPLEX PRN GERD #90 caps rosuvastatin 5 mg tablet 5 mg PO DAILY #90 tabs 03/06/23 02/11/25 Rx sildenafil 100 mg tablet 100 mg PO DAILY PRN sexual 03/06/23 02/11/25 Rx activity #180 tabs testosterone cypionate 200 mg/mL 80 mg IM WEEKLY 09/23/24 02/11/25 History intramuscular oil metoprolol tartrate 50 mg tablet 25 mg PO Q12H 02/11/25 02/11/25 History tadalafil 5 mg tablet (Cialis) 5 mg PO DAILY 02/12/25 02/12/25 History Allergies Allergy/AdvReac Type Severity Reaction Status Date / Time No Known Allergies Allergy Verified 02/11/25 19:47 Vital Signs Vital Signs - 24 hr 02/11/25 15:16 02/11/25 15:17 02/11/25 15:30 Temperature Pulse Rate 73 69 63 Respiratory Rate 20 15 20 Blood Pressure 121/82 Pulse Oximetry 96 97 97 Oxygen Delivery 02/11/25 15:31 02/11/25 15:33 02/11/25 15:45 Temperature Pulse Rate 62 73 67 Respiratory Rate 19 20 18 Blood Pressure 119/70 119/70 Pulse Oximetry 97 97 Oxygen Delivery Room Air 02/11/25 15:46 02/11/25 16:00 02/11/25 16:01 Temperature Pulse Rate 69 70 87 Respiratory Rate 20 17 19 Blood Pressure 134/77 121/79 Pulse Oximetry 96 96 96 Oxygen Delivery 02/11/25 16:15 02/11/25 16:16 02/11/25 16:32 Temperature Pulse Rate 61 Respiratory Rate 18 Blood Pressure 137/69 Pulse Oximetry 96 96 97 Oxygen Delivery 02/11/25 16:45 02/11/25 16:46 02/11/25 17:00 Temperature Pulse Rate 74 65 84 Respiratory Rate 18 19 20 Blood Pressure 124/77 Pulse Oximetry 96 94 98 Oxygen Delivery 02/11/25 17:01 02/11/25 17:15 02/11/25 17:30 Temperature Pulse Rate 69 74 60 Respiratory Rate 19 17 16 Blood Pressure 142/88 H Pulse Oximetry 100 98 94 Oxygen Delivery 02/11/25 17:31 02/11/25 17:45 02/11/25 18:00 Temperature Pulse Rate 70 64 Respiratory Rate 20 Blood Pressure 130/94 H Pulse Oximetry 92 94 97 Oxygen Delivery 02/11/25 18:01 02/11/25 18:15 02/11/25 19:56 Temperature Pulse Rate 62 63 Respiratory Rate 18 Blood Pressure 103/86 Pulse Oximetry 97 95 Oxygen Delivery 02/11/25 21:20 02/12/25 00:00 02/12/25 04:00 Temperature Pulse Rate 64 73 70 Respiratory Rate Blood Pressure Pulse Oximetry Oxygen Delivery 02/12/25 05:19 02/12/25 08:00 02/12/25 08:00 Temperature 97.7 F Pulse Rate 66 74 Respiratory Rate 18 Blood Pressure 115/61 Pulse Oximetry 98 98 Oxygen Delivery Room Air 02/12/25 08:31 02/12/25 08:46 02/12/25 12:00 Temperature Pulse Rate 68 60 Respiratory Rate Blood Pressure Pulse Oximetry 92 Oxygen Delivery Room Air Exam Const: General: cooperative and healthy appearing Resp: Effort & Inspection: normal respiratory effort and able to speak in complete sentences Auscultation: clear to auscultation bilaterally Cardio: Rate: regular rate Rhythm: regular rhythm GI: Inspection: normal to inspection GI Palp: No No hepatosplenomegaly present Auscultation: normal bowel sounds Rectal Exam: deferred Skin: General skin exam: normal color Psych: Appearance: grossly normal Mental Status: mental status grossly normal Results Labs 02/12/25 10:08 02/12/25 04:41 Labs: Short CBC 02/11/25 02/11/25 02/12/25 Range/Units 12:39 23:02 04:41 WBC 7.0 6.7 (4.5-10.0) K/mm3 Hgb 16.1 14.5 13.4 L (14.0-18.0) g/dL Hct 50.0 45.7 42.5 (42.0-52.0) % Plt Count 148 L 144 L (150-375) k/mm3 02/12/25 Range/Units 10:08 WBC (4.5-10.0) K/mm3 Hgb 12.9 L (14.0-18.0) g/dL Hct 40.3 L (42.0-52.0) % Plt Count (150-375) k/mm3 BMP 02/11/25 02/12/25 12:39 04:41 Sodium 134 L 134 L Potassium 4.0 4.2 Chloride 103 103 Carbon Dioxide 21 L 23 BUN 23 H 51 H D Creatinine 1.27 1.19 Glucose 117 H 98 Calcium 8.6 8.4 Cardiac Enzymes 02/11/25 02/11/25 02/11/25 Range/Units 12:39 15:32 18:41 Troponin I < 0.012 < 0.012 < 0.012 (0.000-0.034) ng/mL Liver Function 02/11/25 Range/Units 12:39 Total Bilirubin 1.0 (0.2-1.3) mg/dL AST 34 (17-59) U/L ALT 26 (6-50) U/L Alkaline Phosphatase 66 (38-126) U/L Albumin 4.3 (3.5-5.1) g/dL
--- NOTE | 2025-02-12 12:45 | WPDANESEPPF ---
Anes - Initial Pre Proc Eval Procedure: Operation Date: 02/12/25 14:00 Proposed Procedures p Esophagogastroduodenoscopy - Adalberto Brown MD Date/Time: 02/12/25 12:45 Surgeon: Anisha Mclean MD Pre Op Diagnosis: Upper GI Bleeding Patient Data Age: 69 Gender: M Height: 1.85 m Weight: 86.6 kg Last Vital Signs Temp 36.5 C 02/12/25 05:19 Pulse 60 02/12/25 12:00 Resp 18 02/12/25 05:19 BP 115/61 02/12/25 05:19 Pulse Ox 92 02/12/25 08:31 O2 Del Method Room Air 02/12/25 08:31 Allergies Allergy/AdvReac Type Severity Reaction Status Date / Time No Known Allergies Allergy Verified 02/11/25 19:47 Home Medications ?Medication ?Instructions ?Recorded ?Confirmed ?Type multivitamin 1 tablet PO DAILY 03/17/19 02/11/25 History mecobalamin (vitamin B12) 1,000 1,000 mcg sublingual DAILY 08/17/19 02/11/25 History mcg disintegrating tablet,sublingual rivaroxaban 20 mg tablet (Xarelto) 20 mg PO DAILY 11/06/22 02/11/25 History omeprazole 20 mg capsule,delayed See Rx Instructions .Route 03/06/23 02/11/25 Rx release .COMPLEX PRN GERD #90 caps rosuvastatin 5 mg tablet 5 mg PO DAILY #90 tabs 03/06/23 02/11/25 Rx sildenafil 100 mg tablet 100 mg PO DAILY PRN sexual 03/06/23 02/11/25 Rx activity #180 tabs testosterone cypionate 200 mg/mL 80 mg IM WEEKLY 09/23/24 02/11/25 History intramuscular oil metoprolol tartrate 50 mg tablet 25 mg PO Q12H 02/11/25 02/11/25 History tadalafil 5 mg tablet (Cialis) 5 mg PO DAILY 02/12/25 02/12/25 History Laboratory Tests 02/11/25 02/11/25 02/11/25 12:39 15:32 15:55 WBC 7.0 K/mm3 (4.5-10.0) RBC 6.06 M/mm3 (4.6-6.20) Hgb 16.1 g/dL (14.0-18.0) Hct 50.0 % (42.0-52.0) MCV 82.5 fl (80-100) MCH 26.6 pg (26-34) MCHC 32.2 g/dl (32-36) RDW 17.1 H % (11.5-14.5) Plt Count 148 L k/mm3 (150-375) MPV 9.4 fl (7.4-10.4) Immature Gran % (Auto) 0.3 % (0-0.5) Neut % (Auto) 84.4 H % (45.5-73.1) Lymph % (Auto) 6.9 L % (18.3-44.2) [place] % (Auto) 7.5 % (2.6-8.5) Eos % (Auto) 0.6 % (0-4.4) Baso % (Auto) 0.3 % (0.2-1.2) Lymph # (Auto) 0.48 L K/mm3 (0.9-3.2) [place] # (Auto) 0.5 K/mm3 (0.1-0.6) Eos # (Auto) 0.0 K/mm3 (0-0.3) Baso # (Auto) 0.0 K/mm3 (0.0-0.1) Abs Immat Gran (auto) 0.02 K/mm3 (0.00-0.031) Absolute Neuts (auto) 5.9 K/mm3 (1.3-6.7) Absolute Nucleated RBC 0.000 K/mm3 (0.0-0.012) Nucleated RBC % 0.0 % (0.0-0.2) PT 20.4 H Seconds (11.1-14.7) INR 1.8 APTT 43.5 H Seconds (22.3-36.8) Sodium 134 L mmol/L (137-145) Potassium 4.0 mmol/L (3.4-5.0) Chloride 103 mmol/L (98-107) Carbon Dioxide 21 L mmol/L (22-30) Anion Gap 10 mmol/L (4-12) BUN 23 H mg/dL (9-20) Creatinine 1.27 mg/dL (0.7-1.3) Estim Creat Clear Calc 56 ml/min Estimated GFR 56 L (59 - ) Glucose 117 H mg/dL (65-110) Calcium 8.6 mg/dL (8.4-10.2) Total Bilirubin 1.0 mg/dL (0.2-1.3) AST 34 U/L (17-59) ALT 26 U/L (6-50) Alkaline Phosphatase 66 U/L (38-126) Troponin I < 0.012 ng/mL < 0.012 ng/mL (0.000-0.034) (0.000-0.034) Total Protein 7.6 g/dL (6.3-8.2) Albumin 4.3 g/dL (3.5-5.1) Lipase 48 U/L (23-300) Gastric Fluid pH 3 (1-8) Gastric Occult Blood Negative 02/11/25 02/11/25 02/12/25 18:41 23:02 04:41 WBC 6.7 K/mm3 (4.5-10.0) RBC 5.01 M/mm3 (4.6-6.20) Hgb 14.5 g/dL 13.4 L g/dL (14.0-18.0) (14.0-18.0) Hct 45.7 % 42.5 % (42.0-52.0) (42.0-52.0) MCV 84.8 fl (80-100) MCH 26.7 pg (26-34) MCHC 31.5 L g/dl (32-36) RDW 16.0 H % (11.5-14.5) Plt Count 144 L k/mm3 (150-375) MPV 10.1 fl (7.4-10.4) Immature Gran % (Auto) 0.6 H % (0-0.5) Neut % (Auto) 73.6 H % (45.5-73.1) Lymph % (Auto) 13.8 L % (18.3-44.2) [place] % (Auto) 11.2 H % (2.6-8.5) Eos % (Auto) 0.7 % (0-4.4) Baso % (Auto) 0.1 L % (0.2-1.2) Lymph # (Auto) 0.93 K/mm3 (0.9-3.2) [place] # (Auto) 0.8 H K/mm3 (0.1-0.6) Eos # (Auto) 0.1 K/mm3 (0-0.3) Baso # (Auto) 0.0 K/mm3 (0.0-0.1) Abs Immat Gran (auto) 0.04 H K/mm3 (0.00-0.031) Absolute Neuts (auto) 4.9 K/mm3 (1.3-6.7) Absolute Nucleated RBC 0.000 K/mm3 (0.0-0.012) Nucleated RBC % 0.0 % (0.0-0.2) PT 16.9 H Seconds (11.1-14.7) INR 1.4 APTT 38.2 H Seconds (22.3-36.8) Sodium 134 L mmol/L (137-145) Potassium 4.2 mmol/L (3.4-5.0) Chloride 103 mmol/L (98-107) Carbon Dioxide 23 mmol/L (22-30) Anion Gap 8 mmol/L (4-12) BUN 51 H D mg/dL (9-20) Creatinine 1.19 mg/dL (0.7-1.3) Estim Creat Clear Calc 59 ml/min Estimated GFR > 60 (59 - ) Glucose 98 mg/dL (65-110) Calcium 8.4 mg/dL (8.4-10.2) Total Bilirubin AST ALT Alkaline Phosphatase Troponin I < 0.012 ng/mL (0.000-0.034) Total Protein Albumin Lipase Gastric Fluid pH Gastric Occult Blood 02/12/25 10:08 WBC RBC Hgb 12.9 L g/dL (14.0-18.0) Hct 40.3 L % (42.0-52.0) MCV MCH MCHC RDW Plt Count MPV Immature Gran % (Auto) Neut % (Auto) Lymph % (Auto) [place] % (Auto) Eos % (Auto) Baso % (Auto) Lymph # (Auto) [place] # (Auto) Eos # (Auto) Baso # (Auto) Abs Immat Gran (auto) Absolute Neuts (auto) Absolute Nucleated RBC Nucleated RBC % PT INR APTT Sodium Potassium Chloride Carbon Dioxide Anion Gap BUN Creatinine Estim Creat Clear Calc Estimated GFR Glucose Calcium Total Bilirubin AST ALT Alkaline Phosphatase Troponin I Total Protein Albumin Lipase Gastric Fluid pH Gastric Occult Blood Patient hx anesthesia problems: none Family hx anesthesia problems: none Results Review: All pre-operative results and documents have been reviewed as part of the pre-operative evaluation. 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 Hyperlipidemia Testosterone deficiency Family History Family History Father Family history of malignant neoplasm Mother Family history of Alzheimer's disease Social History Social History Smoking status: Never smoker Second hand tobacco smoke exposure: No Alcohol intake: current Drinks per week: 10 Substance use: never Lack of Transportation: No Lack of Food: Never True Current Housing: I Have Housing Concerned About Future Housing: No Difficulty Paying Gas/Electric Bills: No Difficulty Paying for Meds: No Currently Unemployed: No Education: Bachelor's Degree Difficulty w/ Childcare or Family Care: No Living arrangements: with family Occupation/Education: occupation Gender identity (if verbalized by the patient): Male Spiritual care concerns: No Anes - Eval Final PreProcedure Day of Procedure 02/12/25 12:45 Patient weight: overweight Heart: regular rate and rhythm Lungs: clear to auscultation Airway: Mallampati scale class II Neurological: alert and oriented Last oral intake: >/= 8 hours ASA classification: III Emergent: no Anesthetic plan: proceed Anesthesia type and monitoring: general GIVS and standard monitoring Results Review: All pre-operative results and documents have been reviewed as part of the pre-operative evaluation. Informed Consent: The patient's anesthetic plan and its attendant risks and benefits were discussed with the patient/family/POA. Questions were solicited and answers provided to the satisfaction of the patient/family/POA.
[2025-02-12] MEDS: LACTATED RINGERS 1,000 ML 150 ML IV CONT (13:01)
[2025-02-12] MEDS: SIMETHICONE ORAL SUSPENSION 20 MG/0.3 ML 30 ML BOTTLE 1.8 ML PO (13:02)
--- NOTE | 2025-02-12 14:02 | WPDGIPROGNO ---
Progress Note: A&P Assessment and Plan (1) Esophagitis: Code(s): K20.90 - Esophagitis, unspecified without bleeding Status: Acute Assessment and Plan: EGD report demonstrates significant limitations due to the large volume of coffee-ground material and clot retained within the stomach fundus, which frequently refluxed into the esophagus. Although complete visualization of the esophageal mucosa was precluded by this, severe erosive esophagitis was evident. The gastric fundus could not be fully inspected due to obscuring clot and coffee-ground residue. However the antrum and duodenum appeared normal, and there was no evidence of active bleeding fresh blood in the visualized areas. I suspect the source of the patient's coffee-ground emesis is the chronically and severely exacerbated erosive esophagitis, which is complicated by his anticoagulation status. Plan -Will keep patient over the weekend for observation and continuous intravenous pantoprazole. - NPO today, clear liquids tomorow for lunch -will re-attempt EGD on Saturday to obtain a better visualization and a more precise diagnosis. - Watch for signs and symptoms suspicious for aspiration due to significant regurgitation of coffee grounds during the procedure (CBC, O2 sats frequently, vital signs) Subjective Date/time seen: 02/12/25 14:02 Objective Data Vital Signs Vital Signs: Vital Signs - 24 hr 02/11/25 15:16 02/11/25 15:17 02/11/25 15:30 Temperature Pulse Rate 73 69 63 Respiratory Rate 20 15 20 Blood Pressure 121/82 Pulse Oximetry 96 97 97 Oxygen Delivery 02/11/25 15:31 02/11/25 15:33 02/11/25 15:45 Temperature Pulse Rate 62 73 67 Respiratory Rate 19 20 18 Blood Pressure 119/70 119/70 Pulse Oximetry 97 97 Oxygen Delivery Room Air 02/11/25 15:46 02/11/25 16:00 02/11/25 16:01 Temperature Pulse Rate 69 70 87 Respiratory Rate 20 17 19 Blood Pressure 134/77 121/79 Pulse Oximetry 96 96 96 Oxygen Delivery 02/11/25 16:15 02/11/25 16:16 02/11/25 16:32 Temperature Pulse Rate 61 Respiratory Rate 18 Blood Pressure 137/69 Pulse Oximetry 96 96 97 Oxygen Delivery 02/11/25 16:45 02/11/25 16:46 02/11/25 17:00 Temperature Pulse Rate 74 65 84 Respiratory Rate 18 19 20 Blood Pressure 124/77 Pulse Oximetry 96 94 98 Oxygen Delivery 02/11/25 17:01 02/11/25 17:15 02/11/25 17:30 Temperature Pulse Rate 69 74 60 Respiratory Rate 19 17 16 Blood Pressure 142/88 H Pulse Oximetry 100 98 94 Oxygen Delivery 02/11/25 17:31 02/11/25 17:45 02/11/25 18:00 Temperature Pulse Rate 70 64 Respiratory Rate 20 Blood Pressure 130/94 H Pulse Oximetry 92 94 97 Oxygen Delivery 02/11/25 18:01 02/11/25 18:15 02/11/25 19:56 Temperature Pulse Rate 62 63 Respiratory Rate 18 Blood Pressure 103/86 Pulse Oximetry 97 95 Oxygen Delivery 02/11/25 21:20 02/12/25 00:00 02/12/25 04:00 Temperature Pulse Rate 64 73 70 Respiratory Rate Blood Pressure Pulse Oximetry Oxygen Delivery 02/12/25 05:19 02/12/25 08:00 02/12/25 08:00 Temperature 97.7 F Pulse Rate 66 74 Respiratory Rate 18 Blood Pressure 115/61 Pulse Oximetry 98 98 Oxygen Delivery Room Air 02/12/25 08:31 02/12/25 08:46 02/12/25 12:00 Temperature Pulse Rate 68 60 Respiratory Rate Blood Pressure Pulse Oximetry 92 Oxygen Delivery Room Air 02/12/25 12:56 Temperature 98.2 F Pulse Rate 66 Respiratory Rate 18 Blood Pressure 127/64 Pulse Oximetry 98 Oxygen Delivery Room Air Intake/Output Intake/Output: Intake & Output 02/09/25 02/10/25 02/11/25 02/12/25 23:59 23:59 23:59 23:59 Intake Total 130 Balance 130 Meds/Results Medications: Active Medications Generic Name Dose Route Start Last Admin Trade Name Freq PRN Reason Stop Dose Admin Acetaminophen 650 mg 02/11/25 17:43 Acetaminophen 325 Mg Tablet PO Q4H PRN Mild Pain (1-3) or Fever Chlorpromazine HCl 25 mg 02/11/25 20:37 02/12/25 07:32 Chlorpromazine Hcl 25 Mg Tablet PO 25 mg Q6H PRN Administration Hiccups Dicyclomine HCl 20 mg 02/12/25 10:28 02/12/25 10:47 Dicyclomine Hcl Inj 20 Mg/2 Ml Vial IM 20 mg QID PRN Administration Hiccups Lactated Ringer's 1,000 mls @ 100 mls/hr 02/12/25 10:30 02/12/25 10:39 Lr - Lactated Ringers Iv IV CONT 100 mls/hr .Q10H NATHALIE Administration Lactated Ringer's 1,000 mls @ 150 mls/hr 02/12/25 12:55 02/12/25 13:53 Lr - Lactated Ringers Iv IV CONT 150 mls/hr .Q6H40M NATHALIE Infusion Metoprolol Tartrate 25 mg 02/11/25 21:00 02/12/25 08:46 Metoprolol Tartrate 25 Mg Tablet PO 25 mg Q12HR NATHALIE Administration Morphine Sulfate 2 mg 02/11/25 17:43 Morphine Sulfate (*Crx) 4 Mg/Ml Inj IV PUSH Q2H PRN Pain Rated 7-10 Ondansetron HCl 4 mg 02/11/25 17:43 Ondansetron Inj 4 Mg/2 Ml Vial IV PUSH Q4H PRN Nausea Pantoprazole Sodium 40 mg 02/12/25 10:30 02/12/25 10:39 Pantoprazole Sodium Iv 40 Mg Vial IV PUSH 40 mg Q12HR NAHTALIE Administration Radiology Results: ITS Impressions Chest X-Ray 02/11/25 13:23 IMPRESSION: No acute findings. Labs Labs: Laboratory Results - last 24 hr 02/11/25 02/11/25 02/11/25 15:32 15:55 18:41 WBC RBC Hgb Hct MCV MCH MCHC RDW Plt Count MPV Immature Gran % (Auto) Neut % (Auto) Lymph % (Auto) [place] % (Auto) Eos % (Auto) Baso % (Auto) Lymph # (Auto) [place] # (Auto) Eos # (Auto) Baso # (Auto) Abs Immat Gran (auto) Absolute Neuts (auto) Absolute Nucleated RBC Nucleated RBC % PT INR APTT Sodium Potassium Chloride Carbon Dioxide Anion Gap BUN Creatinine Estim Creat Clear Calc Estimated GFR Glucose Calcium Troponin I < 0.012 < 0.012 Gastric Fluid pH 3 Gastric Occult Blood Negative 02/11/25 02/12/25 02/12/25 23:02 04:41 10:08 WBC 6.7 RBC 5.01 Hgb 14.5 13.4 L 12.9 L Hct 45.7 42.5 40.3 L MCV 84.8 MCH 26.7 MCHC 31.5 L RDW 16.0 H Plt Count 144 L MPV 10.1 Immature Gran % (Auto) 0.6 H Neut % (Auto) 73.6 H Lymph % (Auto) 13.8 L [place] % (Auto) 11.2 H Eos % (Auto) 0.7 Baso % (Auto) 0.1 L Lymph # (Auto) 0.93 [place] # (Auto) 0.8 H Eos # (Auto) 0.1 Baso # (Auto) 0.0 Abs Immat Gran (auto) 0.04 H Absolute Neuts (auto) 4.9 Absolute Nucleated RBC 0.000 Nucleated RBC % 0.0 PT 16.9 H INR 1.4 APTT 38.2 H Sodium 134 L Potassium 4.2 Chloride 103 Carbon Dioxide 23 Anion Gap 8 BUN 51 H D Creatinine 1.19 Estim Creat Clear Calc 59 Estimated GFR > 60 Glucose 98 Calcium 8.4 Troponin I Gastric Fluid pH Gastric Occult Blood
[2025-02-12] MEDS: BACLOFEN 10 MG TABLET PO ×2 (15:54→21:49)
[2025-02-13] VITALS (11 sets, daily range): BP systolic 105–119; BP diastolic 54–71; PULSE 60–76; RESP 16–18; TEMP 36.1–36.4; O2SAT 96–100
[2025-02-13] MEDS: LACTATED RINGERS 1,000 ML 100 ML IV CONT (02:30)
[2025-02-13 05:11] LABS: Hematocrit 36.1 % (42.0-52.0); Hemoglobin 11.2 g/dL (14.0-18.0); Immature Granulocyte Percent A 0.4 % (0-0.5); Lymphocytes Absolute Auto 0.79 K/mm3 (0.9-3.2); Mean Corpuscular HGB Conc 31.0 g/dl (32-36); Mean Corpuscular Hemoglobin 26.4 pg (26-34); Mean Corpuscular Volume 85.1 fl (80-100); Nucleated Red Blood Cells Absolute Auto 0.000 K/mm3 (0.0-0.012); Nucleated Red Blood Cells Perc 0.0 % (0.0-0.2); Platelet Count Result 127 k/mm3 (150-375); Red Blood Count 4.24 M/mm3 (4.6-6.20); White Blood Count 9.4 K/mm3 (4.5-10.0)
[2025-02-13 05:34] LABS: Alanine Aminotransferase 17 U/L (6-50); Albumin Level 3.1 g/dL (3.5-5.1); Alkaline Phosphatase 44 U/L (38-126); Anion Gap 6 mmol/L (4-12); Aspartate Amino Transferase 23 U/L (17-59); Bilirubin,Total 0.9 mg/dL (0.2-1.3); Blood Urea Nitrogen 36 mg/dL (9-20); Calcium 7.8 mg/dL (8.4-10.2); Carbon Dioxide 23 mmol/L (22-30); Chloride 106 mmol/L (98-107); Estimated CRCL calculation 62 ml/min; Estimated Glomerular Filt Rate > 60; Glucose 107 mg/dL (65-110); Potassium 3.9 mmol/L (3.4-5.0); Sodium 135 mmol/L (137-145); Total Protein 5.7 g/dL (6.3-8.2)
[2025-02-13] MEDS: BACLOFEN 10 MG TABLET PO (06:05)
[2025-02-13] MEDS: DICYCLOMINE HCL INJ 20 MG/2 ML VIAL IM ×2 (06:08→12:14)
--- NOTE | 2025-02-13 07:27 | P.PNIM_ITS ---
Progress Note: A&P Assessment and Plan (1) GI bleed: Qualifiers: GI bleed type/associated pathology: unspecified gastrointestinal hemorrhage type Qualified Code(s): K92.2 - Gastrointestinal hemorrhage, unspecified Code(s): K92.2 - Gastrointestinal hemorrhage, unspecified Status: Acute Assessment and Plan: Patient here with new hematemesis and dark loose stools. Guaiac positive on 02/11. Patient has history of polycythemia, hemoglobin 16.1 upon admission. No previous colonoscopy or EGD on file. Had negative Cologuard in 2019 and per was also negative in 2022 however not on file. Reviewed vital signs in the ED, no hemodynamic instability. - s/p EGD 02/12 with chronic severe diffuse esophagitis in the distal esophagus, significant coffee ground emesis, large amount of dark blood in the fundus and in the body of the stomach, not adequately visualized. - Hgb 16.1-->11.2 - continue IV Protonix BID - CLD - hold Xarelto - monitor CBC daily per GI recs - GI following - planning to repeat EGD Saturday for better visualization (2) Acute blood loss anemia: Code(s): D62 - Acute posthemorrhagic anemia Status: Acute Assessment and Plan: - Hgb 16.1-->11.2 - in setting of upper GI bleed. No current signs of active bleeding. - trend CBC daily per GI recs - transfuse Hgb <7 or hemodynamic instability (3) Hiccups: Code(s): R06.6 - Hiccough Status: Acute Assessment and Plan: - continue Baclofen scheduled per GI recs (4) A-fib: Qualifiers: Atrial fibrillation type: unspecified Qualified Code(s): I48.91 - Unspecified atrial fibrillation Code(s): I48.91 - Unspecified atrial fibrillation Status: Chronic Assessment and Plan: History of atrial fibrillation on Xarelto and metoprolol. Currently here with history and workup concerning for GI bleed. - continue metoprolol 25 mg b.i.d. - hold Xarelto given UGI bleed (5) Polycythemia: Code(s): D75.1 - Secondary polycythemia Status: Acute Assessment and Plan: History of polycythemia. 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 Per their note, last blood donation in November 2022. - monitor hemoglobin (6) Hyperlipidemia: Qualifiers: Hyperlipidemia type: mixed hyperlipidemia Qualified Code(s): E78.2 - Mixed hyperlipidemia Code(s): E78.5 - Hyperlipidemia, unspecified Status: Chronic Assessment and Plan: - resume Crestor Plan DVT Prophylaxis: Cari Hammonds Code Status: Full code Dispo: home pending clinical course Subjective Date/time seen: 02/13/25 07:27 Interval history: Patient seen and examined at bedside. Doing ok this AM. No further signs of bleeding. Bentyl helped hiccups. Review of Systems Review of Systems: All systems reviewed & are unremarkable except as noted in HPI and below Exam Narrative: General: NAD Eyes: EOMI ENT: neck supple Cardiovascular: Regular rate and rhythm Respiratory: Clear to auscultation, respirations even and unlabored on RA Gastrointestinal: Soft, non tender Genitourinary: no suprapubic tenderness Musculoskeletal: No edema Skin: warm, dry Neuro: Alert. Psych: Mood appropriate Objective Data Vital Signs Vital Signs: Vital Signs - 24 hr 02/12/25 08:00 02/12/25 08:00 02/12/25 08:31 Temperature Pulse Rate 74 Respiratory Rate Blood Pressure Pulse Oximetry 98 92 Oxygen Delivery Room Air Room Air Oxygen Flow Rate 02/12/25 08:46 02/12/25 12:00 02/12/25 12:56 Temperature 98.2 F Pulse Rate 68 60 66 Respiratory Rate 18 Blood Pressure 127/64 Pulse Oximetry 98 Oxygen Delivery Room Air Oxygen Flow Rate 02/12/25 14:00 02/12/25 14:10 02/12/25 14:20 Temperature Pulse Rate 71 67 64 Respiratory Rate 20 20 20 Blood Pressure 110/70 115/75 121/74 Pulse Oximetry 95 95 98 Oxygen Delivery Simple Face Mask Simple Face Mask Room Air Oxygen Flow Rate 8 5 02/12/25 14:43 02/12/25 16:00 02/12/25 20:00 Temperature 97.8 F Pulse Rate 61 63 Respiratory Rate 18 Blood Pressure 110/64 Pulse Oximetry 97 Oxygen Delivery Room Air Oxygen Flow Rate 02/12/25 20:00 02/12/25 21:48 02/12/25 22:00 Temperature 99 F Pulse Rate 84 82 83 Respiratory Rate 16 Blood Pressure 120/60 Pulse Oximetry 98 Oxygen Delivery Oxygen Flow Rate 02/13/25 00:00 02/13/25 04:00 02/13/25 06:00 Temperature 97.5 F L Pulse Rate 76 63 71 Respiratory Rate 18 Blood Pressure 105/56 L Pulse Oximetry 96 Oxygen Delivery Oxygen Flow Rate Intake/Output Intake/Output: Intake & Output 02/10/25 02/11/25 02/12/25 02/13/25 23:59 23:59 23:59 23:59 Intake Total 1130 0 Balance 1130 0 Meds/Results Medications: Active Medications Generic Name Dose Route Start Last Admin Trade Name Freq PRN Reason Stop Dose Admin Acetaminophen 650 mg 02/11/25 17:43 Acetaminophen 325 Mg Tablet PO Q4H PRN Mild Pain (1-3) or Fever Baclofen 10 mg 02/12/25 15:35 02/13/25 06:05 Baclofen 10 Mg Tablet PO 10 mg Q8HR NATHALIE Administration Chlorpromazine HCl 25 mg 02/11/25 20:37 02/13/25 06:05 Chlorpromazine Hcl 25 Mg Tablet PO 25 mg Q6H PRN Administration Hiccups Dicyclomine HCl 20 mg 02/12/25 10:28 02/13/25 06:08 Dicyclomine Hcl Inj 20 Mg/2 Ml Vial IM 20 mg QID PRN Administration Hiccups Lactated Ringer's 1,000 mls @ 100 mls/hr 02/12/25 10:30 02/13/25 02:30 Lr - Lactated Ringers Iv IV CONT 100 mls/hr .Q10H NATHALIE Administration Metoprolol Tartrate 25 mg 02/11/25 21:00 02/12/25 21:48 Metoprolol Tartrate 25 Mg Tablet PO 25 mg Q12HR NATHALIE Administration Morphine Sulfate 2 mg 02/11/25 17:43 Morphine Sulfate (*Crx) 4 Mg/Ml Inj IV PUSH Q2H PRN Pain Rated 7-10 Ondansetron HCl 4 mg 02/11/25 17:43 Ondansetron Inj 4 Mg/2 Ml Vial IV PUSH Q4H PRN Nausea Pantoprazole Sodium 40 mg 02/12/25 10:30 02/12/25 21:49 Pantoprazole Sodium Iv 40 Mg Vial IV PUSH 40 mg Q12HR NATHALIE Administration Radiology Results: ITS Impressions Chest X-Ray 02/11/25 13:23 IMPRESSION: No acute findings. Labs Labs: Laboratory Results - last 24 hr 02/12/25 02/13/25 10:08 04:49 WBC 9.4 RBC 4.24 L Hgb 12.9 L 11.2 L Hct 40.3 L 36.1 L MCV 85.1 MCH 26.4 MCHC 31.0 L RDW 16.2 H Plt Count 127 L MPV 9.9 Immature Gran % (Auto) 0.4 Neut % (Auto) 83.3 H Lymph % (Auto) 8.4 L [place] % (Auto) 7.3 Eos % (Auto) 0.3 Baso % (Auto) 0.3 Lymph # (Auto) 0.79 L [place] # (Auto) 0.7 H Eos # (Auto) 0.0 Baso # (Auto) 0.0 Abs Immat Gran (auto) 0.04 H Absolute Neuts (auto) 7.9 H Absolute Nucleated RBC 0.000 Nucleated RBC % 0.0 Sodium 135 L Potassium 3.9 Chloride 106 Carbon Dioxide 23 Anion Gap 6 BUN 36 H D Creatinine 1.14 Estim Creat Clear Calc 62 Estimated GFR > 60 Glucose 107 Calcium 7.8 L Total Bilirubin 0.9 AST 23 ALT 17 Alkaline Phosphatase 44 Total Protein 5.7 L Albumin 3.1 L Quality VTE Prophylaxis VTE prophylaxis: mechanical ordered
[2025-02-13] MEDS: METOPROLOL TARTRATE 25 MG TABLET PO ×2 (08:46→21:09)
[2025-02-13] MEDS: PANTOPRAZOLE SODIUM IV 40 MG VIAL IV PUSH ×2 (08:46→21:10)
--- NOTE | 2025-02-13 12:05 | WPDGIPROGNO ---
Progress Note: A&P Assessment and Plan (1) Esophagitis: Code(s): K20.90 - Esophagitis, unspecified without bleeding Status: Acute Assessment and Plan: Patient admitted yesterday for several coffee-ground emesis episodes. He was to have moderate to severe erosive esophagitis, despite taking omeprazole on a daily basis. Endoscopy was not completed due to a large amount of retained coffee-grounds in the fundus, therefore will repeat on Saturday. Will advance diet to clear liquids today and keep him on it for the rest of the weekend, will continue intravenous pantoprazole to maximize acid suppression and will increase dose of baclofen to 15 mg tiD for the management of hiccups. (2) GI bleed: Qualifiers: GI bleed type/associated pathology: unspecified gastrointestinal hemorrhage type Qualified Code(s): K92.2 - Gastrointestinal hemorrhage, unspecified Code(s): K92.2 - Gastrointestinal hemorrhage, unspecified Status: Acute Subjective Date/time seen: 02/13/25 12:05 Interval history: Patient did well after endoscopy recover. He did not have further episodes of melena or hematemesis. His main complaint is persistent hiccups. We started baclofen 10 mg t.i.d. yesterday. Exam Narrative: General: NAD Eyes: EOMI ENT: neck supple Cardiovascular: Regular rate and rhythm Respiratory: Clear to auscultation, respirations even and unlabored on RA Gastrointestinal: Soft, non tender Genitourinary: no suprapubic tenderness Musculoskeletal: No edema Skin: warm, dry Neuro: Alert. Psych: Mood appropriate Objective Data Vital Signs Vital Signs: Vital Signs - 24 hr 02/12/25 12:56 02/12/25 14:00 02/12/25 14:10 Temperature 98.2 F Pulse Rate 66 71 67 Respiratory Rate 18 20 20 Blood Pressure 127/64 110/70 115/75 Pulse Oximetry 98 95 95 Oxygen Delivery Room Air Simple Face Mask Simple Face Mask Oxygen Flow Rate 8 5 02/12/25 14:20 02/12/25 14:43 02/12/25 16:00 Temperature 97.8 F Pulse Rate 64 61 63 Respiratory Rate 20 18 Blood Pressure 121/74 110/64 Pulse Oximetry 98 97 Oxygen Delivery Room Air Oxygen Flow Rate 02/12/25 20:00 02/12/25 20:00 02/12/25 21:48 Temperature Pulse Rate 84 82 Respiratory Rate Blood Pressure Pulse Oximetry Oxygen Delivery Room Air Oxygen Flow Rate 02/12/25 22:00 02/13/25 00:00 02/13/25 04:00 Temperature 99 F Pulse Rate 83 76 63 Respiratory Rate 16 Blood Pressure 120/60 Pulse Oximetry 98 Oxygen Delivery Oxygen Flow Rate 02/13/25 06:00 02/13/25 08:46 Temperature 97.5 F L Pulse Rate 71 65 Respiratory Rate 18 Blood Pressure 105/56 L Pulse Oximetry 96 Oxygen Delivery Oxygen Flow Rate Intake/Output Intake/Output: Intake & Output 02/10/25 02/11/25 02/12/25 02/13/25 23:59 23:59 23:59 23:59 Intake Total 1130 0 Balance 1130 0 Meds/Results Medications: Active Medications Generic Name Dose Route Start Last Admin Trade Name Freq PRN Reason Stop Dose Admin Acetaminophen 650 mg 02/11/25 17:43 Acetaminophen 325 Mg Tablet PO Q4H PRN Mild Pain (1-3) or Fever Baclofen 10 mg 02/12/25 15:35 02/13/25 06:05 Baclofen 10 Mg Tablet PO 10 mg Q8HR NATHALIE Administration Chlorpromazine HCl 25 mg 02/11/25 20:37 02/13/25 06:05 Chlorpromazine Hcl 25 Mg Tablet PO 25 mg Q6H PRN Administration Hiccups Dicyclomine HCl 20 mg 02/12/25 10:28 02/13/25 06:08 Dicyclomine Hcl Inj 20 Mg/2 Ml Vial IM 20 mg QID PRN Administration Hiccups Metoprolol Tartrate 25 mg 02/11/25 21:00 02/13/25 08:46 Metoprolol Tartrate 25 Mg Tablet PO 25 mg Q12HR NATHALIE Administration Ondansetron HCl 4 mg 02/11/25 17:43 Ondansetron Inj 4 Mg/2 Ml Vial IV PUSH Q4H PRN Nausea Pantoprazole Sodium 40 mg 02/12/25 10:30 02/13/25 08:46 Pantoprazole Sodium Iv 40 Mg Vial IV PUSH 40 mg Q12HR NATHALIE Administration Rosuvastatin Calcium 5 mg 02/13/25 11:05 Rosuvastatin 5 Mg Tablet PO DAILY [facility] Radiology Results: ITS Impressions Chest X-Ray 02/11/25 13:23 IMPRESSION: No acute findings. Labs Labs: Laboratory Results - last 24 hr 02/13/25 04:49 WBC 9.4 RBC 4.24 L Hgb 11.2 L Hct 36.1 L MCV 85.1 MCH 26.4 MCHC 31.0 L RDW 16.2 H Plt Count 127 L MPV 9.9 Immature Gran % (Auto) 0.4 Neut % (Auto) 83.3 H Lymph % (Auto) 8.4 L [place] % (Auto) 7.3 Eos % (Auto) 0.3 Baso % (Auto) 0.3 Lymph # (Auto) 0.79 L [place] # (Auto) 0.7 H Eos # (Auto) 0.0 Baso # (Auto) 0.0 Abs Immat Gran (auto) 0.04 H Absolute Neuts (auto) 7.9 H Absolute Nucleated RBC 0.000 Nucleated RBC % 0.0 Sodium 135 L Potassium 3.9 Chloride 106 Carbon Dioxide 23 Anion Gap 6 BUN 36 H D Creatinine 1.14 Estim Creat Clear Calc 62 Estimated GFR > 60 Glucose 107 Calcium 7.8 L Total Bilirubin 0.9 AST 23 ALT 17 Alkaline Phosphatase 44 Total Protein 5.7 L Albumin 3.1 L
[2025-02-13] MEDS: BACLOFEN 5 MG TABLET 15 MG PO ×2 (15:57→21:09)
[2025-02-13] MEDS: ROSUVASTATIN 5 MG TABLET PO (21:09)
[2025-02-14] VITALS (13 sets, daily range): BP systolic 111–145; BP diastolic 59–67; PULSE 61–99; RESP 12–20; TEMP 36.4–36.7; O2SAT 97–100; BMI 28.0
[2025-02-14] MEDS: BACLOFEN 5 MG TABLET 15 MG PO ×3 (05:42→22:08)
[2025-02-14 05:47] LABS: Hematocrit 33.0 % (42.0-52.0); Hemoglobin 10.2 g/dL (14.0-18.0); Immature Granulocyte Percent A 0.4 % (0-0.5); Lymphocytes Absolute Auto 0.76 K/mm3 (0.9-3.2); Mean Corpuscular HGB Conc 30.9 g/dl (32-36); Mean Corpuscular Hemoglobin 26.6 pg (26-34); Mean Corpuscular Volume 86.2 fl (80-100); Nucleated Red Blood Cells Absolute Auto 0.000 K/mm3 (0.0-0.012); Nucleated Red Blood Cells Perc 0.0 % (0.0-0.2); Platelet Count Result 113 k/mm3 (150-375); Red Blood Count 3.83 M/mm3 (4.6-6.20); White Blood Count 5.0 K/mm3 (4.5-10.0)
--- NOTE | 2025-02-14 07:04 | P.PNIM_ITS ---
Progress Note: A&P Assessment and Plan (1) GI bleed: Qualifiers: GI bleed type/associated pathology: unspecified gastrointestinal hemorrhage type Qualified Code(s): K92.2 - Gastrointestinal hemorrhage, unspecified Code(s): K92.2 - Gastrointestinal hemorrhage, unspecified Status: Acute Assessment and Plan: Patient here with new hematemesis and dark loose stools. Guaiac positive on 02/11. Patient has history of polycythemia, hemoglobin 16.1 upon admission. No previous colonoscopy or EGD on file. Had negative Cologuard in 2019 and per was also negative in 2022 however not on file. Reviewed vital signs in the ED, no hemodynamic instability. - s/p EGD 02/12 with chronic severe diffuse esophagitis in the distal esophagus, significant coffee ground emesis, large amount of dark blood in the fundus and in the body of the stomach, not adequately visualized. - Hgb 16.1-->10.2 - continue IV Protonix BID - CLD - hold Xarelto - monitor CBC daily per GI recs - GI following - planning to repeat EGD Saturday for better visualization (2) Acute blood loss anemia: Code(s): D62 - Acute posthemorrhagic anemia Status: Acute Assessment and Plan: - Hgb 16.1-->10.2 - in setting of upper GI bleed. No current signs of active bleeding. - trend CBC daily per GI recs - transfuse Hgb <7 or hemodynamic instability (3) Hiccups: Code(s): R06.6 - Hiccough Status: Acute Assessment and Plan: - continue Baclofen scheduled per GI recs - PRN Bentyl and thorazine ordered (4) A-fib: Qualifiers: Atrial fibrillation type: unspecified Qualified Code(s): I48.91 - Unspecified atrial fibrillation Code(s): I48.91 - Unspecified atrial fibrillation Status: Chronic Assessment and Plan: History of atrial fibrillation on Xarelto and metoprolol. Currently here with history and workup concerning for GI bleed. - continue metoprolol 25 mg b.i.d. - hold Xarelto given UGI bleed (5) Polycythemia: Code(s): D75.1 - Secondary polycythemia Status: Acute Assessment and Plan: History of polycythemia. 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 Per their note, last blood donation in November 2022. - monitor hemoglobin (6) Hyperlipidemia: Qualifiers: Hyperlipidemia type: mixed hyperlipidemia Qualified Code(s): E78.2 - Mixed hyperlipidemia Code(s): E78.5 - Hyperlipidemia, unspecified Status: Chronic Assessment and Plan: - resume Crestor Plan DVT Prophylaxis: Cari Hammonds Code Status: Full code Dispo: home in 1-2 days Subjective Date/time seen: 02/14/25 07:04 Interval history: Patient seen and examined at bedside. Still complaining of hiccups, but improved. No further signs of bleeding. Having some decreased urine output. Encourage PO hydration. Review of Systems Review of Systems: All systems reviewed & are unremarkable except as noted in HPI and below Exam Narrative: General: NAD Eyes: EOMI ENT: neck supple Cardiovascular: Regular rate and rhythm Respiratory: Clear to auscultation, respirations even and unlabored on RA Gastrointestinal: Soft, non tender Genitourinary: no suprapubic tenderness Musculoskeletal: No edema Skin: warm, dry Neuro: Alert. Psych: Mood appropriate Objective Data Vital Signs Vital Signs: Vital Signs - 24 hr 02/13/25 08:00 02/13/25 08:46 02/13/25 08:46 Temperature Pulse Rate 60 65 Respiratory Rate Blood Pressure Pulse Oximetry Oxygen Delivery Room Air 02/13/25 12:00 02/13/25 14:00 02/13/25 16:00 Temperature 97 F L Pulse Rate 68 62 61 Respiratory Rate 16 Blood Pressure 117/71 Pulse Oximetry 100 Oxygen Delivery 02/13/25 20:00 02/13/25 21:09 02/13/25 21:53 Temperature 97.2 F L Pulse Rate 75 60 69 Respiratory Rate 16 Blood Pressure 119/54 L Pulse Oximetry 99 Oxygen Delivery 02/14/25 00:00 02/14/25 04:00 02/14/25 06:00 Temperature 98.1 F Pulse Rate 69 77 62 Respiratory Rate 20 Blood Pressure 129/59 L Pulse Oximetry 97 Oxygen Delivery Intake/Output Intake/Output: Intake & Output 02/11/25 02/12/25 02/13/25 02/14/25 23:59 23:59 23:59 23:59 Intake Total 1130 600 150 Balance 1130 600 150 Meds/Results Medications: Active Medications Generic Name Dose Route Start Last Admin Trade Name Freq PRN Reason Stop Dose Admin Acetaminophen 650 mg 02/11/25 17:43 Acetaminophen 325 Mg Tablet PO Q4H PRN Mild Pain (1-3) or Fever Baclofen 15 mg 02/13/25 14:00 02/14/25 05:42 Baclofen 5 Mg Tablet PO 15 mg Q8HR NATHALIE Administration Metoprolol Tartrate 25 mg 02/11/25 21:00 02/13/25 21:09 Metoprolol Tartrate 25 Mg Tablet PO 25 mg Q12HR NATHALIE Administration Ondansetron HCl 4 mg 02/11/25 17:43 Ondansetron Inj 4 Mg/2 Ml Vial IV PUSH Q4H PRN Nausea Pantoprazole Sodium 40 mg 02/12/25 10:30 02/13/25 21:10 Pantoprazole Sodium Iv 40 Mg Vial IV PUSH 40 mg Q12HR NATHALIE Administration Rosuvastatin Calcium 5 mg 02/13/25 21:00 02/13/25 21:09 Rosuvastatin 5 Mg Tablet PO 5 mg HS NATHALIE Administration Radiology Results: ITS Impressions Chest X-Ray 02/11/25 13:23 IMPRESSION: No acute findings. Labs Labs: Laboratory Results - last 24 hr 02/14/25 05:26 WBC 5.0 RBC 3.83 L Hgb 10.2 L Hct 33.0 L MCV 86.2 MCH 26.6 MCHC 30.9 L RDW 16.3 H Plt Count 113 L MPV 10.0 Immature Gran % (Auto) 0.4 Neut % (Auto) 71.8 Lymph % (Auto) 15.3 L [place] % (Auto) 8.7 H Eos % (Auto) 3.4 Baso % (Auto) 0.4 Lymph # (Auto) 0.76 L [place] # (Auto) 0.4 Eos # (Auto) 0.2 Baso # (Auto) 0.0 Abs Immat Gran (auto) 0.02 Absolute Neuts (auto) 3.6 Absolute Nucleated RBC 0.000 Nucleated RBC % 0.0 Quality VTE Prophylaxis VTE prophylaxis: mechanical ordered
[2025-02-14] MEDS: METOPROLOL TARTRATE 25 MG TABLET PO ×2 (08:37→20:28)
[2025-02-14] MEDS: PANTOPRAZOLE SODIUM IV 40 MG VIAL IV PUSH ×2 (08:39→20:27)
--- NOTE | 2025-02-14 14:27 | P.PNGI_ITS ---
Progress Note: A&P Assessment and Plan (1) Esophagitis: Code(s): K20.90 - Esophagitis, unspecified without bleeding Status: Acute Assessment and Plan: The patient remains clinically stable although his hemoglobin today is 10.2, however there is no melena or further be coffee-ground emesis. He is currently on IV Pantoprazole and his hiccups is apparently responding well after increaseing baclofen dose from 10 to 15 mg tiD. We plan on doing an EGD tomorrow, and if the only finding is erosive esophagitis, he can be discharged on a PPI biD permanently, Baclofen 15 mg tid for 3-4 more days and resuming Camilla gabi. (2) GI bleed: Qualifiers: GI bleed type/associated pathology: unspecified gastrointestinal he morrhage type Qualified Code(s): K92.2 - Gastrointestinal hemorrhage, unspecified Code(s): K92.2 - Gastrointestinal hemorrhage, unspecified Status: Acute Plan - EGD tomorrow - Obtain consent - Continue Baclofen 15 mg tiD 4 more days - NPO after midnight, clear liquids all day today - Possible discharge after EGD on Eliquis, Pantoprazole 40 mg biD Subjective Date/time seen: 02/14/25 14:27 Objective Data Vital Signs Vital Signs: Vital Signs - 24 hr 02/13/25 16:00 02/13/25 20:00 02/13/25 21:09 Temperature Pulse Rate 61 75 60 Respiratory Rate Blood Pressure Pulse Oximetry Oxygen Delivery 02/13/25 21:53 02/14/25 00:00 02/14/25 04:00 Temperature 97.2 F L Pulse Rate 69 69 77 Respiratory Rate 16 Blood Pressure 119/54 L Pulse Oximetry 99 Oxygen Delivery 02/14/25 06:00 02/14/25 08:37 02/14/25 08:45 Temperature 98.1 F Pulse Rate 62 69 Respiratory Rate 20 Blood Pressure 129/59 L Pulse Oximetry 97 Oxygen Delivery Room Air 02/14/25 08:58 02/14/25 09:08 02/14/25 09:18 Temperature 97.5 F L 97.6 F 98.1 F Pulse Rate 61 99 99 Respiratory Rate 12 12 12 Blood Pressure 111/67 119/62 116/63 Pulse Oximetry 100 99 100 Oxygen Delivery Intake/Output Intake/Output: Intake & Output 02/11/25 02/12/25 02/13/25 02/14/25 23:59 23:59 23:59 23:59 Intake Total 1130 600 390 Balance 1130 600 390 Meds/Results Medications: Active Medications Generic Name Dose Route Start Last Admin Trade Name Freq PRN Reason Stop Dose Admin Acetaminophen 650 mg 02/11/25 17:43 Acetaminophen 325 Mg Tablet PO Q4H PRN Mild Pain (1-3) or Fever Baclofen 15 mg 02/13/25 14:00 02/14/25 14:16 Baclofen 5 Mg Tablet PO 15 mg Q8HR NATHALIE Administration Metoprolol Tartrate 25 mg 02/11/25 21:00 02/14/25 08:37 Metoprolol Tartrate 25 Mg Tablet PO 25 mg Q12HR NATHALIE Administration Ondansetron HCl 4 mg 02/11/25 17:43 Ondansetron Inj 4 Mg/2 Ml Vial IV PUSH Q4H PRN Nausea Pantoprazole Sodium 40 mg 02/12/25 10:30 02/14/25 08:39 Pantoprazole Sodium Iv 40 Mg Vial IV PUSH 40 mg Q12HR NATHALIE Administration Rosuvastatin Calcium 5 mg 02/13/25 21:00 02/13/25 21:09 Rosuvastatin 5 Mg Tablet PO 5 mg HS NATHALIE Administration Radiology Results: ITS Impressions Chest X-Ray 02/11/25 13:23 IMPRESSION: No acute findings. Labs Labs: Laboratory Results - last 24 hr 02/14/25 05:26 WBC 5.0 RBC 3.83 L Hgb 10.2 L Hct 33.0 L MCV 86.2 MCH 26.6 MCHC 30.9 L RDW 16.3 H Plt Count 113 L MPV 10.0 Immature Gran % (Auto) 0.4 Neut % (Auto) 71.8 Lymph % (Auto) 15.3 L Miller % (Auto) 8.7 H Eos % (Auto) 3.4 Baso % (Auto) 0.4 Lymph # (Auto) 0.76 L Miller # (Auto) 0.4 Eos # (Auto) 0.2 Baso # (Auto) 0.0 Abs Immat Gran (auto) 0.02 Absolute Neuts (auto) 3.6 Absolute Nucleated RBC 0.000 Nucleated RBC % 0.0
[2025-02-14] MEDS: ROSUVASTATIN 5 MG TABLET PO (20:28)
[2025-02-15] VITALS (8 sets, daily range): BP systolic 107–149; BP diastolic 66–76; PULSE 60–63; RESP 16–21; TEMP 36.2–36.6; O2SAT 97–100
[2025-02-15 04:35] LABS: Hematocrit 33.0 % (42.0-52.0); Hemoglobin 10.6 g/dL (14.0-18.0); Immature Granulocyte Percent A 0.5 % (0-0.5); Lymphocytes Absolute Auto 0.71 K/mm3 (0.9-3.2); Mean Corpuscular HGB Conc 32.1 g/dl (32-36); Mean Corpuscular Hemoglobin 26.8 pg (26-34); Mean Corpuscular Volume 83.3 fl (80-100); Nucleated Red Blood Cells Absolute Auto 0.000 K/mm3 (0.0-0.012); Nucleated Red Blood Cells Perc 0.0 % (0.0-0.2); Platelet Count Result 128 k/mm3 (150-375); Red Blood Count 3.96 M/mm3 (4.6-6.20); White Blood Count 4.3 K/mm3 (4.5-10.0)
[2025-02-15 04:51] LABS: Anion Gap 5 mmol/L (4-12); Blood Urea Nitrogen 14 mg/dL (9-20); Calcium 8.2 mg/dL (8.4-10.2); Carbon Dioxide 24 mmol/L (22-30); Chloride 107 mmol/L (98-107); Estimated CRCL calculation 61 ml/min; Estimated Glomerular Filt Rate > 60; Glucose 108 mg/dL (65-110); Magnesium 1.9 mg/dL (1.6-2.3); Potassium 3.5 mmol/L (3.4-5.0); Sodium 136 mmol/L (137-145)
[2025-02-15] MEDS: BACLOFEN 5 MG TABLET 15 MG PO (06:12)
[2025-02-15] MEDS: LACTATED RINGERS 1,000 ML 150 ML IV CONT (07:41)
--- NOTE | 2025-02-15 08:26 | WPDANESEPPF ---
Anes - Initial Pre Proc Eval Procedure: Operation Date: 02/12/25 14:00 Proposed Procedures p Esophagogastroduodenoscopy - Adalberto Brown MD Operation Date: 02/15/25 09:00 Proposed Procedures p Esophagogastroduodenoscopy - Lui Brody MD Date/Time: 02/15/25 08:26 Surgeon: Anisha Mclean MD Pre Op Diagnosis: Upper GI Bleeding Patient Data Age: 69 Gender: M Height: 1.85 m Weight: 96.5 kg Last Vital Signs Temp 36.2 C L 02/15/25 07:46 Pulse 60 02/15/25 07:46 Resp 18 02/15/25 07:46 BP 130/76 02/15/25 07:46 Pulse Ox 99 02/15/25 07:46 O2 Del Method Room Air 02/15/25 07:46 O2 Flow Rate 5 02/12/25 14:10 Allergies Allergy/AdvReac Type Severity Reaction Status Date / Time No Known Allergies Allergy Verified 02/15/25 07:45 Home Medications ?Medication ?Instructions ?Recorded ?Confirmed ?Type multivitamin 1 tablet PO DAILY 03/17/19 02/11/25 History mecobalamin (vitamin B12) 1,000 1,000 mcg sublingual DAILY 08/17/19 02/11/25 History mcg disintegrating tablet,sublingual rivaroxaban 20 mg tablet (Xarelto) 20 mg PO DAILY 11/06/22 02/15/25 History omeprazole 20 mg capsule,delayed See Rx Instructions .Route 03/06/23 02/11/25 Rx release .COMPLEX PRN GERD #90 caps sildenafil 100 mg tablet 100 mg PO DAILY PRN sexual 03/06/23 02/11/25 Rx activity #180 tabs testosterone cypionate 200 mg/mL 80 mg IM WEEKLY 09/23/24 02/11/25 History intramuscular oil metoprolol tartrate 50 mg tablet 25 mg PO Q12H 02/11/25 02/11/25 History tadalafil 5 mg tablet (Cialis) 5 mg PO DAILY 02/12/25 02/12/25 History rosuvastatin 5 mg tablet 5 mg PO HS 02/13/25 02/13/25 History Laboratory Tests 02/15/25 04:25 WBC 4.3 L K/mm3 (4.5-10.0) RBC 3.96 L M/mm3 (4.6-6.20) Hgb 10.6 L g/dL (14.0-18.0) Hct 33.0 L % (42.0-52.0) MCV 83.3 fl (80-100) MCH 26.8 pg (26-34) MCHC 32.1 g/dl (32-36) RDW 15.9 H % (11.5-14.5) Plt Count 128 L k/mm3 (150-375) MPV 9.6 fl (7.4-10.4) Immature Gran % (Auto) 0.5 % (0-0.5) Neut % (Auto) 69.7 % (45.5-73.1) Lymph % (Auto) 16.4 L % (18.3-44.2) Island % (Auto) 9.2 H % (2.6-8.5) Eos % (Auto) 3.7 % (0-4.4) Baso % (Auto) 0.5 % (0.2-1.2) Lymph # (Auto) 0.71 L K/mm3 (0.9-3.2) Island # (Auto) 0.4 K/mm3 (0.1-0.6) Eos # (Auto) 0.2 K/mm3 (0-0.3) Baso # (Auto) 0.0 K/mm3 (0.0-0.1) Abs Immat Gran (auto) 0.02 K/mm3 (0.00-0.031) Absolute Neuts (auto) 3.0 K/mm3 (1.3-6.7) Absolute Nucleated RBC 0.000 K/mm3 (0.0-0.012) Nucleated RBC % 0.0 % (0.0-0.2) Sodium 136 L mmol/L (137-145) Potassium 3.5 mmol/L (3.4-5.0) Chloride 107 mmol/L (98-107) Carbon Dioxide 24 mmol/L (22-30) Anion Gap 5 mmol/L (4-12) BUN 14 D mg/dL (9-20) Creatinine 1.16 mg/dL (0.7-1.3) Estim Creat Clear Calc 61 ml/min Estimated GFR > 60 (59 - ) Glucose 108 mg/dL (65-110) Calcium 8.2 L mg/dL (8.4-10.2) Magnesium 1.9 mg/dL (1.6-2.3) Patient hx anesthesia problems: none Family hx anesthesia problems: none Results Review: All pre-operative results and documents have been reviewed as part of the pre-operative evaluation. 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 Hyperlipidemia Testosterone deficiency Family History Family History Father Family history of malignant neoplasm Mother Family history of Alzheimer's disease Social History Social History Smoking status: Never smoker Second hand tobacco smoke exposure: No Alcohol intake: current Drinks per week: 10 Substance use: never Lack of Transportation: No Lack of Food: Never True Current Housing: I Have Housing Concerned About Future Housing: No Difficulty Paying Gas/Electric Bills: No Difficulty Paying for Meds: No Currently Unemployed: No Education: Bachelor's Degree Difficulty w/ Childcare or Family Care: No Living arrangements: with family Occupation/Education: occupation Gender identity (if verbalized by the patient): Male Spiritual care concerns: No Anes - Eval Final PreProcedure Day of Procedure 02/15/25 08:26 Patient weight: overweight Heart: regular rate and rhythm and other (paced) Lungs: clear to auscultation Airway: Mallampati scale class II Neurological: alert and oriented Last oral intake: >/= 8 hours ASA classification: III Emergent: no Anesthetic plan: proceed Anesthesia type and monitoring: general GIVS and standard monitoring Results Review: All pre-operative results and documents have been reviewed as part of the pre-operative evaluation. Informed Consent: The patient's anesthetic plan and its attendant risks and benefits were discussed with the patient/family/POA. Questions were solicited and answers provided to the satisfaction of the patient/family/POA.
--- NOTE | 2025-02-15 09:09 | S_PTH ---
PATIENT: Mike Coleman LOC: [id number] U#:[id number] AGE/SX: 69/M ROOM: 252 RE02/12/[address]: TRANG Garcia : 1955 BED: 01 DIS: 02/15/2025 SPEC #: [id number] RECD: 02/15/25 10:07 STATUS: TSERING REDion #: [id number] ED: 02/15/25 09:[address]: Lui Brody DEPT: [facility] Surgical RECD BY: Kim Snow ENTERED: 02/15/25 10:08 SP TYPE: Surgical OTHR DR: MD Rayne Beckham PA Tissues: A - Gastric Biopsy Procedures: Hematoxylin and Eosin Stain Gross and Microscopic Level 4 H.Pylori
[2025-02-15] MEDS: METOPROLOL TARTRATE 25 MG TABLET PO (09:55)
[2025-02-15] MEDS: ACETAMINOPHEN 325 MG TABLET 650 MG PO (10:01)
--- NOTE | 2025-02-15 11:13 | P.DS_ITS ---
DS: Admitting Diagnosis Discharge Date 02/15/25 Admitting Diagnosis - GI bleed - acute blood loss anemia - hiccups - Afib - polycythemia DS: Discharge Diagnosis Discharge Diagnosis (1) GI bleed: Qualifiers: GI bleed type/associated pathology: unspecified gastrointestinal hemorrhage type Qualified Code(s): K92.2 - Gastrointestinal hemorrhage, unspecified Code(s): K92.2 - Gastrointestinal hemorrhage, unspecified Status: Acute (2) Acute blood loss anemia: Code(s): D62 - Acute posthemorrhagic anemia Status: Acute (3) Hiccups: Code(s): R06.6 - Hiccough Status: Acute (4) A-fib: Qualifiers: Atrial fibrillation type: unspecified Qualified Code(s): I48.91 - Unspecified atrial fibrillation Code(s): I48.91 - Unspecified atrial fibrillation Status: Chronic (5) Polycythemia: Code(s): D75.1 - Secondary polycythemia Status: Acute (6) Hyperlipidemia: Qualifiers: Hyperlipidemia type: mixed hyperlipidemia Qualified Code(s): E78.2 - Mixed hyperlipidemia Code(s): E78.5 - Hyperlipidemia, unspecified Status: Chronic DS: Summary Hospital Course Reason for hospitalization: - GI bleed - acute blood loss anemia - hiccups - Afib - polycythemia Hospital Course: Mr. 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 On admission, he was hemodynamically stable but had evidence of acute blood loss anemia, with hemoglobin dropping from 16.1 g/dL to 10.2 g/dL over the course of hospitalization. Anticoagulation with Xarelto was held, and he was started on IV pantoprazole. Initial EGD was limited by poor visualization due to significant coffee-ground material and blood in the stomach, but revealed severe, diffuse, circumferential erosive esophagitis in the distal esophagus. The patient remained stable without further overt bleeding, and his hemoglobin stabilized with supportive care and PPI therapy. Hiccups, likely related to esophageal irritation, improved with baclofen. A repeat EGD on 02/15/25 demonstrated Grade III reflux esophagitis (Savary-Jones) in the distal esophagus without active bleeding, and a hiatal hernia at the GE junction. The stomach and duodenum were normal, with no ulcers, masses, or AVMs identified. Multiple biopsies were obtained. The patient tolerated the procedure well and remained clinically stable. He was transitioned to oral omeprazole twice daily, and it was deemed safe to resume Xarelto 02/16/25 with a repeat CBC ordered for 5-7 days. He was discharged in stable condition with instructions to continue PPI therapy, resume anticoagulation, and follow up for biopsy results. He will have a repeat EGD in 4-5 months to reassess healing. Status at Discharge Functional status at discharge: independent ambulation Overall status at discharge: patient is back to baseline Time Spent with Patient Time attestation: Total time spent providing and/or coordinating discharge services: Time spent: Greater than 30 minutes Exam Narrative: General: NAD Eyes: EOMI ENT: neck supple Cardiovascular: Regular rate and rhythm Respiratory: Clear to auscultation, respirations even and unlabored on RA Gastrointestinal: Soft, non tender Genitourinary: no suprapubic tenderness Musculoskeletal: No edema Skin: warm, dry Neuro: Alert. Psych: Mood appropriate DS: Data Data Completed and Pending Completed studies during hospitalization: ITS Impressions Chest X-Ray 02/11/25 13:23 IMPRESSION: No acute findings. Pending studies at discharge: Pending at discharge 02/15/25 09:09 Surgical [PTH] Routine Labs on day of discharge: Labs from last 24 hours 02/15/25 04:25 WBC 4.3 L RBC 3.96 L Hgb 10.6 L Hct 33.0 L MCV 83.3 MCH 26.8 MCHC 32.1 RDW 15.9 H Plt Count 128 L MPV 9.6 Immature Gran % (Auto) 0.5 Neut % (Auto) 69.7 Lymph % (Auto) 16.4 L Whiteside % (Auto) 9.2 H Eos % (Auto) 3.7 Baso % (Auto) 0.5 Lymph # (Auto) 0.71 L Whiteside # (Auto) 0.4 Eos # (Auto) 0.2 Baso # (Auto) 0.0 Abs Immat Gran (auto) 0.02 Absolute Neuts (auto) 3.0 Absolute Nucleated RBC 0.000 Nucleated RBC % 0.0 Sodium 136 L Potassium 3.5 Chloride 107 Carbon Dioxide 24 Anion Gap 5 BUN 14 D Creatinine 1.16 Estim Creat Clear Calc 61 Estimated GFR > 60 Glucose 108 Calcium 8.2 L Magnesium 1.9 Discharge Plan Discharge Attending physician on discharge: Naseem Holt Consulting providers: Rayne Pierce; Lui Brody Discharging Clinician: Rayne Pierce Anticipated Discharge Date/Time: 02/15/25 11:02 Patient Disposition: Home Activity: as tolerated Diet: other - see discharge instructions Discharge Instructions: Date of EGD: 02/15/2025 Diagnosis: * Severe reflux esophagitis (Grade III, circumferential erosions/ulcerations of the esophagus). No ulcers were seen in the stomach. * Hiatal hernia * No active bleeding * Multiple biopsies taken (results pending) 1.?Medications * omeprazole: increase dose to 20 mg twice daily until your repeat EGD is performed. You will need to obtain refills through your PCP. Dosage: * Take?20 mg of omeprazole by mouth twice daily?(every 12 hours is ideal, such as once in the morning and once in the evening). * If you take antacids or other medications, try to separate them from omeprazole by at least 2 hours. * Timing: * Take each dose?30?60 minutes before a meal?(preferably before breakfast and before dinner). * Swallow the capsule or tablet whole with a glass of water. Do not crush, chew, or split the medication. * Xarelto:?You may resume Xarelto?tomorrow (02/16/2025). * Continue to utilize Baclofen as needed for hiccups. * Other medications:?Take all other medications as previously directed. 2.?Dietary Instructions * General:?You may resume your diet, but to promote healing and reduce reflux symptoms, please follow these guidelines: * Avoid acidic and spicy foods:?Limit tomato-based sauces (common in [place] food), citrus, and spicy dishes. * Limit fatty and fried foods:?These can worsen reflux. * Avoid carbonated beverages:?No soda, as carbonation can increase reflux and irritate the esophagus. * Avoid alcohol:?Limit wine or other alcoholic beverages until your esophagus has healed. * Eat smaller, more frequent meals:?Avoid large meals, especially in the evening. * Do not eat within 2-3 hours of bedtime. * Stay upright after eating:?Avoid lying down or reclining for at least 2 hours after meals. 3.?Lifestyle Modifications * Elevate the head of your bed:?Raise the head of your bed by 6-8 inches to help prevent nighttime reflux. * Weight management:?If overweight, gradual weight loss can help reduce reflux symptoms. * Avoid tight clothing:?Especially around the waist and abdomen. 4.?Activity * Resume normal activities as tolerated. * Avoid heavy lifting or straining, which can worsen reflux and hiatal hernia symptoms. 5.?Follow-Up * Biopsy results:?The office will call you with your biopsy results. If you do not hear from us within 7 days, please call the office. * Repeat EGD:?A follow-up EGD is recommended in?4-5 months?to assess healing. * Lab work:?Repeat a CBC (complete blood count) in 5-7 days. Tonny make sure [facility] sends these results to your PCP. Follow up with your primary care provider regarding these results. 6.?When to Seek Medical Attention Call the office or seek immediate care if you experience: * Difficulty swallowing or food getting stuck * Vomiting blood or passing black, tarry stools * Severe chest pain or shortness of breath * Persistent vomiting or inability to keep down fluids If you have any questions or concerns, please contact our office. Thank you for your cooperation and attention to these instructions. Patient Instructions: Antibiotic Form, Omeprazole (By mouth), Baclofen (By mouth), Rivaroxaban (By mouth) Patient Language: Cameroonian Stand Alone Forms: General Discharge Information Follow-up/Referrals: Surjit, Marlen [Other] - Call for Appointment Referral Note: Call to follow-up with lab work. Keep regularly scheduled appointment. Lui Brody MD [Physician, Gastroenterology] - Call for Appointment Referral Note: Call to schedule repeat EGD when you return from [place] Discharge Medications: New baclofen 10 mg Tablet 15 mg PO Q8HR PRN (Reason: hiccups) 7 Days Qty: 15 0RF omeprazole 20 mg capsule,delayed release(DR/EC) 20 mg PO BID Qty: 60 0RF Continued testosterone cypionate 200 mg/mL oil 80 mg IM WEEKLY Rx Instructions: SATURDAY multivitamin Tablet 1 tablet PO DAILY mecobalamin (vitamin B12) 1,000 mcg tablet,disintegrating 1,000 mcg SUBLINGUAL DAILY Rx Instructions: place tablet under tongue and allow to dissolve for at least30 secs before swallowing metoprolol tartrate 50 mg tablet 25 mg PO Q12H tadalafil [Cialis] 5 mg tablet 5 mg PO DAILY rosuvastatin 5 mg tablet 5 mg PO HS sildenafil 100 mg tablet 100 mg PO DAILY PRN (Reason: sexual activity) Qty: 180 0RF Rx Instructions: administer 30 minutes to 4 hours before activity Held Xarelto 20 mg tablet 20 mg PO DAILY Hold Instructions: Resume on 02/16/25. Rx Instructions: must administer with evening meal Discontinued omeprazole 20 mg capsule,delayed release(DR/EC) See Rx Instructions .ROUTE .COMPLEX PRN (Reason: GERD) Qty: 90 1RF Dose Instruction: TAKE 1 CAPSULE DAILY Rx Instructions: TAKE 1 CAPSULE DAILY PRN; Other Ambulatory Orders: Complete Blood Count with Diff (Routine) Timeframe: 5 Days Location: Determined by Patient Ordered By: Rayne Pierce Date of admission: 02/12/25 14:36 Primary Care Provider: SurjitMarlen Admitting Provider: Anisha Mclean Attending physician on admission: Anisha Mclean Condition: Stable
== END 2025-02-15 11:45 | disposition home or self-care (01) | DRG 369 ==
LOC: ANHED 15:15 → ANH2MED 18:13
PROVIDERS: Emergency Medicine; Internal Medicine Gastroenterology; Student in an Organized Health Care Education/Training Program; Admitting Provider General Practice; Emergency Provider Physician Assistant; Visit Provider Physician Assistant
PROC: 0DJ08ZZ Inspection of Upper Intestinal Tract, Via Natural or Artificial Opening Endoscopic (ICD-10-PCS; principal; 2025-02-12 14:00)
DX: K21.01 Gastro-esophageal reflux disease with esophagitis, with bleeding (principal); D62 Acute posthemorrhagic anemia; K92.2 Gastrointestinal hemorrhage, unspecified; D75.1 Secondary polycythemia; E55.9 Vitamin D deficiency, unspecified; E78.2 Mixed hyperlipidemia; I48.91 Unspecified atrial fibrillation; K44.9 Diaphragmatic hernia without obstruction or gangrene; K21.9 Gastro-esophageal reflux disease without esophagitis; R06.6 Hiccough; Z95.0 Presence of cardiac pacemaker; Z79.899 Other long term (current) drug therapy; Z79.01 Long term (current) use of anticoagulants
CPT/HCPCS: 36415; 71046; 80048; 80053; 82271; 83690; 83735; 83986; 84484; 85014; 85018; 85025; 85610; 85730; 88305; 88342; 93005; 96372; 96374; 96375; 99285; A9270; G0378; J0500; J2003; J2405; J2470; J2704; J7040; J7120

== ENCOUNTER 2025-02-22 07:57 | Outpatient (CLI) | payer MEDICARE, OTHER, SELFPAY ==
--- OUTSIDE RECORDS SUMMARY | 2025-02-22 08:08 | XMS_ITS | Clinical Summary ---
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 [address] [place] [address] Josh Fierro MD [address] [place] [address] Health Maintenance Due Date Last [...] 04/10/2020 Insurance MEDICARE PART A AND B [facility] MEDICARE PART A AND B [facility]
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
--- OUTSIDE RECORDS SUMMARY | 2025-02-22 08:08 | XMS_ITS | Encounter Summary ---
Author Organization [facility] Address [address] [place] [address] Care Team Providers Care Him Specialists Name Role Phone Win Jeong M.D. Unavailable [phone] Marlen Eddy M.D. Primary Care Provider + Melchor Ramirez M.D. Unavailable Unavailabl e Encounter Details Date Type Department Care Team (Late st Contact Info) Description 12/23/2024 Results Follow-Up Primary Care at [facility] [address] [place] [address] Marlen Eddy M.D. [address] [facility] , [address] [place] [address] SCANNED LABORATORY RESULT Social History [...] from your doctor or pharmacy? Never 02/29/2024 [facility] Utilities Answer Date Recorded In the past [...] How often do you attend chur or taoist services? 1 to 4 times per year 02/29/2024 Do you belong to any clubs o r organizations such as spiritism groups, unions, fraternal or athletic groups, or [...] Recorded Patient Health Questionnaire-2 Score 0 03/04/2024 [facility] Occupat ional Health - Occupational Stress [...] any time in the past 12 m [facility], were you homeless or living in a fpc (including now)? No 02/29/2024 Sex and Gender [...] 03/09/2025 2:00 PM EST Office Visit [facility] [place] [address] [place] [address] Win Jeong M.D. [facility] [employer], [address] [place], [place] [id number] 03/17/2025 10:30 AM EST Office Visit Primary Care at [address] [place] [address] 03/17/2025 11:00 AM EST Office Visit Primary Care at [address] [place] [address] Marlen Eddy M.D. [address] [place], [place] [address], [address] [place] [address] 07/14/2025 11:30 AM EDT Office Visit Urology at [address] [place] [address] Toney Palencia M.D. [address] [place] [address] documented as of this encounter Visit Diagnoses Not on filedocumented in this encounter Care Teams Him Specialists Relationship Specialty Start Date End Date Marlen Eddy M.D. [address] [place], [place] [address], [address] [place] [address] PCP - General Family Medicine 07/15/23 Win Jeong M.D. [facility] [employer], [address] [place], [place] [id number] Green Building Design Specialist Cardiology 04/17/23 Melchor Ramirez M.D. [address] [place], [place] [address], [address] [place] [address] Urologic Surgery 03/04/24 Dr Sandoval Dermatology 03/04/24 documented as of this encounter
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
[2025-02-22 08:37] LABS: Hematocrit 33.0 % (42.0-52.0); Hemoglobin 10.5 g/dL (14.0-18.0); Immature Granulocyte Percent A 0.2 % (0-0.5); Lymphocytes Absolute Auto 0.88 K/mm3 (0.9-3.2); Mean Corpuscular HGB Conc 31.8 g/dl (32-36); Mean Corpuscular Hemoglobin 26.6 pg (26-34); Mean Corpuscular Volume 83.8 fl (80-100); Nucleated Red Blood Cells Absolute Auto 0.000 K/mm3 (0.0-0.012); Nucleated Red Blood Cells Perc 0.0 % (0.0-0.2); Platelet Count Result 215 k/mm3 (150-375); Red Blood Count 3.94 M/mm3 (4.6-6.20); White Blood Count 4.3 K/mm3 (4.5-10.0)
== END 2025-02-22 07:58 | disposition home or self-care (01) ==
PROVIDERS: Visit Provider Physician Assistant
DX: D62 Acute posthemorrhagic anemia (principal)
CPT/HCPCS: 36415; 85025